=== PATIENT | male | born 1940 | race Caucasian/White ===

== ENCOUNTER → 2016-11-06 | Outpatient (CLI) | payer MEDICARE ==
[2015-11-19 09:41] VITALS: BP 156/78
[~2016-11-06] MED LIST: ABILIFY5 MG PO; AMBIEN 10MG10 MG PO; AMBIEN CR 12.12.5 MG PO; ASPIRIN E.C. 8181 MG PO; CRESTOR 10MG10 MG PO; DEPO-TESTOS200 MG/M1 IM; FLOMAX 0.40.4 MG/CAP PO; LIPITOR 40MG TA40 MG PO; OSTEO BI-FLEX1 TAB PO; TENORMIN25 MG PO; WELLBUTRIN SR200 MG PO
== END ==
LOC: LAB 09:57
DX: Z13.89 Encounter for screening for other disorder (principal)

== ENCOUNTER → 2016-11-24 | Outpatient (CLI) | payer MEDICARE ==
[2015-11-19 09:41] VITALS: BP 156/78
== END ==
LOC: LAB 09:19
DX: I10 Essential (primary) hypertension (principal); I25.10 Atherosclerotic heart disease of native coronary artery without angina pectoris; Z12.5 Encounter for screening for malignant neoplasm of prostate; E78.2 Mixed hyperlipidemia; E29.1 Testicular hypofunction

== ENCOUNTER 2017-04-25 02:47 | Emergency (ER) | payer MEDICARE ==
[~2017-04-25] VITALS: Ht 172.7 cm; Wt 77.3 kg
[2017-04-25] MEDS ORDERED: SEROQUEL 2525 MG/TAB PO (02:54)
[2017-04-25] MEDS ORDERED: CRESTOR20 MG PO (02:54)
[2017-04-25 03:38] LABS: EOS # 0.1 (0.04-0.40); EOS % 0.6 % (0.0-4.0); HEMATOCRIT 36.1 % (42.0-52.0); HEMOGLOBIN 11.1 g/dL (13.5-18.0); MEAN CELL VOLUME 75 fl (78-100); MEAN CORPUSCULAR HEMOGLOBIN 23 pg (27-31); MEAN CORPUSCULAR HGB CONC 31 g/dL (33-37); MEAN PLATELET VOLUME 9.9 fl (7.4-10.4); NEU # 7.9 (1.40-6.50); PLATELET COUNT 267 K/mm3 (130-400); RED BLOOD COUNT 4.79 M/mm3 (4.20-5.60); RED CELL DISTRIBUTION WIDTH 18.5 % (11.5-14.5); WHITE BLOOD COUNT 11.1 K/mm3 (4.8-10.8)
[2017-04-25 03:50] LABS: BUN/CREATININE RATIO 14.5 (6.0-26.0); CALCIUM 9.5 mg/dL (8.4-10.2); POTASSIUM 4.3 mmol/L (3.6-5.0); TOTAL BILIRUBIN 0.8 mg/dL (0.2-1.3); TOTAL PROTEIN 6.1 g/dL (6.3-8.2)
[2017-04-25 08:02] LABS: URINE APPEARANCE CLEAR; URINE COLOR STRAW; URINE GLUCOSE NEGATIVE (NEGATIVE); URINE PROTEIN(semi-quant) 3+ mg/dL (NEGATIVE)
[2017-04-25 08:03] LABS: URINE BILIRUBIN NEGATIVE (NEGATIVE); URINE BLOOD 50 ery/uL (NEGATIVE); URINE KETONE NEGATIVE (NEGATIVE); URINE LEUKOCYTE ESTERASE NEGATIVE (NEGATIVE); URINE NITRATE NEGATIVE (NEGATIVE); URINE UROBILINOGEN NORMAL (NORMAL); URINE WBC 0-1 /hpf (0-3)
[2017-04-25] MEDS ORDERED: ZOFRAN ODT4 MG PO (08:45)
[2017-04-25] MEDS ORDERED: MIRALAX17 GM PO (08:45)
[2017-04-25] MEDS ORDERED: OMEPRAZOLE20 MG PO (08:45)
[2017-04-25 09:10] VITALS: BP 177/91
== END 2017-04-25 09:28 | disposition home or self-care (01) ==
LOC: ED 02:47
PROVIDERS: Family Medicine
DX: R10.31 Right lower quadrant pain (principal); D64.9 Anemia, unspecified; I12.9 Hypertensive chronic kidney disease with stage 1 through stage 4 chronic kidney disease, or unspecified chronic kidney disease; N18.9 Chronic kidney disease, unspecified; K59.00 Constipation, unspecified; I25.10 Atherosclerotic heart disease of native coronary artery without angina pectoris; E78.5 Hyperlipidemia, unspecified; F31.9 Bipolar disorder, unspecified; R11.2 Nausea with vomiting, unspecified; R07.89 Other chest pain; E29.1 Testicular hypofunction
CPT/HCPCS: C9113; J2405; J3490; J7030

== ENCOUNTER 2017-04-28 13:44 | Emergency (ER) | payer MEDICARE ==
[~2017-04-28] VITALS: Ht 172.7 cm; Wt 76.8 kg
[~2017-04-28 13:44] MED LIST changes: +CRESTOR20 MG PO; +MIRALAX17 GM PO; +OMEPRAZOLE20 MG PO; +SEROQUEL 2525 MG/TAB PO; +ZOFRAN ODT4 MG PO
[2017-04-28 14:41] LABS: EOS # 0.5 (0.04-0.40); EOS % 4.5 % (0.0-4.0); HEMATOCRIT 27.4 % (42.0-52.0); HEMOGLOBIN 8.4 g/dL (13.5-18.0); LYMPH# 1.6 (1.50-4.00); MEAN CELL VOLUME 77 fl (78-100); MEAN CORPUSCULAR HEMOGLOBIN 24 pg (27-31); MEAN CORPUSCULAR HGB CONC 31 g/dL (33-37); MEAN PLATELET VOLUME 10.1 fl (7.4-10.4); MONO # 0.9 (0.20-0.80); PLATELET COUNT 281 K/mm3 (130-400); RED BLOOD COUNT 3.56 M/mm3 (4.20-5.60); RED CELL DISTRIBUTION WIDTH 18.7 % (11.5-14.5)
[2017-04-28 15:04] LABS: ALBUMIN 2.5 g/dL (3.5-5.0); BUN/CREATININE RATIO 18.7 (6.0-26.0); CALCIUM 8.8 mg/dL (8.4-10.2); TOTAL BILIRUBIN 0.5 mg/dL (0.2-1.3); TOTAL PROTEIN 5.2 g/dL (6.3-8.2)
[2017-04-28 15:14] LABS: POTASSIUM 6.1 mmol/L (3.6-5.0)
[2017-04-28 17:18] LABS: URINE APPEARANCE CLEAR; URINE COLOR YELLOW
[2017-04-28 17:19] LABS: PH-URINE 6.5 (5.0 - 8.0); URINE BILIRUBIN NEGATIVE (NEGATIVE); URINE BLOOD TRACE (NEGATIVE); URINE GLUCOSE NEGATIVE (NEGATIVE); URINE KETONE NEGATIVE (NEGATIVE); URINE LEUKOCYTE ESTERASE NEGATIVE (NEGATIVE); URINE NITRATE NEGATIVE (NEGATIVE); URINE PROTEIN(semi-quant) 3+ mg/dL (NEGATIVE); URINE UROBILINOGEN NORMAL (NORMAL)
[2017-04-28 18:08] VITALS: BP 130/55
== END 2017-04-28 18:08 | disposition short-term general hospital (02) ==
LOC: ED 13:44
PROVIDERS: Physician Assistant
DX: K92.2 Gastrointestinal hemorrhage, unspecified (principal); I95.9 Hypotension, unspecified; N19 Unspecified kidney failure; E87.5 Hyperkalemia; Z79.82 Long term (current) use of aspirin; I25.10 Atherosclerotic heart disease of native coronary artery without angina pectoris; I10 Essential (primary) hypertension; F31.9 Bipolar disorder, unspecified; K21.9 Gastro-esophageal reflux disease without esophagitis; E78.5 Hyperlipidemia, unspecified; G47.00 Insomnia, unspecified; N40.0 Benign prostatic hyperplasia without lower urinary tract symptoms; F17.200 Nicotine dependence, unspecified, uncomplicated
CPT/HCPCS: C9113; J0610; J1815; J7030; J7050; J7120

== ENCOUNTER → 2017-05-18 | Outpatient (CLI) | payer MEDICARE ==
[2017-04-28 18:08] VITALS: BP 130/55
[2017-05-18 16:41] LABS: ALBUMIN 2.7 g/dL (3.5-5.0); BUN/CREATININE RATIO 13.2 (6.0-26.0); POTASSIUM 5.1 mmol/L (3.6-5.0); TOTAL BILIRUBIN 0.4 mg/dL (0.2-1.3); TOTAL PROTEIN 5.9 g/dL (6.3-8.2)
[2017-05-18 17:17] LABS: EOS # 0.4 (0.04-0.40); EOS % 3.5 % (0.0-4.0); HEMOGLOBIN 9.8 g/dL (13.5-18.0); LYMPH# 2.5 (1.50-4.00); MEAN CELL VOLUME 91 fl (78-100); MEAN CORPUSCULAR HEMOGLOBIN 27 pg (27-31); MEAN CORPUSCULAR HGB CONC 30 g/dL (33-37); MEAN PLATELET VOLUME 10.2 fl (7.4-10.4); MONO # 1.3 (0.20-0.80); NEU # 6.8 (1.40-6.50); RED BLOOD COUNT 3.62 M/mm3 (4.20-5.60); RED CELL DISTRIBUTION WIDTH 19.5 % (11.5-14.5)
[2017-05-18 17:22] LABS: PLATELET COUNT 531 K/mm3 (130-400)
== END ==
LOC: LAB 15:58
PROVIDERS: Internal Medicine
DX: K26.0 Acute duodenal ulcer with hemorrhage (principal); I10 Essential (primary) hypertension; I25.10 Atherosclerotic heart disease of native coronary artery without angina pectoris

== ENCOUNTER → 2017-05-31 | Outpatient (CLI) | payer MEDICARE ==
[~2017-05-31] VITALS: Ht 172.7 cm; Wt 77.3 kg
[~2017-05-31] MED LIST changes: +COLACE100 M1 PO; +IRON90 MG
[2017-05-31 09:00] VITALS: BP 151/83
== END ==
LOC: AMSURD 08:01
DX: M10.9 Gout, unspecified (principal)
CPT/HCPCS: J1040; J7512

== ENCOUNTER → 2017-06-18 | Outpatient (CLI) | payer MEDICARE ==
[2017-05-31 09:00] VITALS: BP 151/83
[2017-06-18 10:42] LABS: ALBUMIN 2.9 g/dL (3.5-5.0); BUN/CREATININE RATIO 11.4 (6.0-26.0); CALCIUM 9.5 mg/dL (8.4-10.2); POTASSIUM 4.2 mmol/L (3.6-5.0); TOTAL BILIRUBIN 0.4 mg/dL (0.2-1.3); TOTAL PROTEIN 6.6 g/dL (6.3-8.2)
[2017-06-18 12:16] LABS: EOS # 0.1 (0.04-0.40); EOS % 0.9 % (0.0-4.0); HEMATOCRIT 42.9 % (42.0-52.0); HEMOGLOBIN 12.8 g/dL (13.5-18.0); LYMPH# 1.4 (1.50-4.00); MEAN CELL VOLUME 88 fl (78-100); MEAN CORPUSCULAR HEMOGLOBIN 26 pg (27-31); MEAN CORPUSCULAR HGB CONC 30 g/dL (33-37); MEAN PLATELET VOLUME 10.7 fl (7.4-10.4); NEU # 7.5 (1.40-6.50); PLATELET COUNT 374 K/mm3 (130-400); RED BLOOD COUNT 4.87 M/mm3 (4.20-5.60); WHITE BLOOD COUNT 10.1 K/mm3 (4.8-10.8)
== END ==
LOC: LAB 09:15
PROVIDERS: Internal Medicine
DX: K92.2 Gastrointestinal hemorrhage, unspecified (principal); I10 Essential (primary) hypertension; I25.10 Atherosclerotic heart disease of native coronary artery without angina pectoris

== ENCOUNTER → 2017-07-19 | Outpatient (CLI) | payer MEDICARE ==
[2017-05-31 09:00] VITALS: BP 151/83
[2017-07-19 10:34] LABS: EOS # 0.5 (0.04-0.40); EOS % 4.8 % (0.0-4.0); HEMATOCRIT 42.5 % (42.0-52.0); MEAN CELL VOLUME 86 fl (78-100); MEAN CORPUSCULAR HEMOGLOBIN 26 pg (27-31); MEAN CORPUSCULAR HGB CONC 31 g/dL (33-37); MONO # 1.2 (0.20-0.80); NEU # 6.4 (1.40-6.50); PLATELET COUNT 493 K/mm3 (130-400); RED BLOOD COUNT 4.97 M/mm3 (4.20-5.60); RED CELL DISTRIBUTION WIDTH 20.4 % (11.5-14.5); WHITE BLOOD COUNT 10.2 K/mm3 (4.8-10.8)
== END ==
LOC: LAB 09:54
PROVIDERS: Internal Medicine
DX: K26.0 Acute duodenal ulcer with hemorrhage (principal); I10 Essential (primary) hypertension; I25.10 Atherosclerotic heart disease of native coronary artery without angina pectoris

== ENCOUNTER → 2017-08-02 | Outpatient (CLI) | payer MEDICARE ==
[2017-05-31 09:00] VITALS: BP 151/83
== END ==
LOC: RAD 09:59
DX: R60.0 Localized edema (principal); M79.89 Other specified soft tissue disorders

== ENCOUNTER → 2017-08-24 | Outpatient (CLI) | payer MEDICARE ==
[2017-05-31 09:00] VITALS: BP 151/83
[2017-08-24 08:27] LABS: BUN/CREATININE RATIO 11.9 (6.0-26.0); CALCIUM 8.3 mg/dL (8.4-10.2); POTASSIUM 4.5 mmol/L (3.6-5.0)
== END ==
LOC: LAB 08:04
PROVIDERS: Internal Medicine
DX: I10 Essential (primary) hypertension (principal); R60.9 Edema, unspecified; M16.0 Bilateral primary osteoarthritis of hip; N40.0 Benign prostatic hyperplasia without lower urinary tract symptoms; K57.90 Diverticulosis of intestine, part unspecified, without perforation or abscess without bleeding; K44.9 Diaphragmatic hernia without obstruction or gangrene; N28.9 Disorder of kidney and ureter, unspecified

== ENCOUNTER → 2017-08-26 | Outpatient (CLI) | payer MEDICARE ==
[2017-05-31 09:00] VITALS: BP 151/83
== END ==
LOC: VAS 15:47 → RAD 16:00
DX: I08.3 Combined rheumatic disorders of mitral, aortic and tricuspid valves (principal)

== ENCOUNTER → 2017-08-31 | Outpatient (CLI) | payer MEDICARE ==
[2017-05-31 09:00] VITALS: BP 151/83
[2017-08-31 08:34] LABS: BUN/CREATININE RATIO 13.4 (6.0-26.0); CALCIUM 8.7 mg/dL (8.4-10.2); POTASSIUM 4.8 mmol/L (3.6-5.0)
== END ==
LOC: LAB 08:09
PROVIDERS: Internal Medicine
DX: I10 Essential (primary) hypertension (principal)

== ENCOUNTER → 2017-09-07 | Outpatient (CLI) | payer MEDICARE ==
[2017-05-31 09:00] VITALS: BP 151/83
[2017-09-07 19:40] LABS: PH-URINE 6.5 (5.0 - 8.0); URINE APPEARANCE CLEAR; URINE BILIRUBIN NEGATIVE (NEGATIVE); URINE COLOR YELLOW; URINE GLUCOSE NEGATIVE (NEGATIVE); URINE KETONE NEGATIVE (NEGATIVE); URINE PROTEIN(semi-quant) 3+ mg/dL (NEGATIVE); URINE UROBILINOGEN NORMAL (NORMAL)
[2017-09-07 19:41] LABS: URINE BLOOD TRACE (NEGATIVE); URINE LEUKOCYTE ESTERASE NEGATIVE (NEGATIVE); URINE NITRATE NEGATIVE (NEGATIVE)
== END ==
LOC: LAB 16:03
PROVIDERS: Internal Medicine
DX: N17.9 Acute kidney failure, unspecified (principal)

== ENCOUNTER → 2017-09-07 | Outpatient (CLI) | payer MEDICARE ==
[2017-05-31 09:00] VITALS: BP 151/83
[2017-09-07 08:51] LABS: BUN/CREATININE RATIO 11.6 (6.0-26.0); CALCIUM 8.4 mg/dL (8.4-10.2); POTASSIUM 4.6 mmol/L (3.6-5.0)
== END ==
LOC: LAB 08:28
PROVIDERS: Internal Medicine
DX: I10 Essential (primary) hypertension (principal)

== ENCOUNTER → 2017-09-08 | Outpatient (CLI) | payer MEDICARE ==
[2017-05-31 09:00] VITALS: BP 151/83
== END ==
LOC: RAD 07:00
DX: N17.9 Acute kidney failure, unspecified (principal); I10 Essential (primary) hypertension

== ENCOUNTER → 2017-09-17 | Outpatient (CLI) | payer MEDICARE ==
[2017-05-31 09:00] VITALS: BP 151/83
[2017-09-17 15:24] LABS: BUN/CREATININE RATIO 10.7 (6.0-26.0); CALCIUM 8.6 mg/dL (8.4-10.2); POTASSIUM 4.8 mmol/L (3.6-5.0)
[2017-09-18 00:50] LABS: COMPLEMENT C3 120 mg/dL (79-152); COMPLEMENT-C4 30 mg/dL (18-55)
[2017-09-20 11:54] LABS: ALBUMIN 2.3 g/dL (3.5-5.0)
[2017-09-21 23:16] LABS: C-ANCA 8 U/mL (0-99)
== END ==
LOC: LAB 13:59
PROVIDERS: Internal Medicine
DX: N17.8 Other acute kidney failure (principal); I12.9 Hypertensive chronic kidney disease with stage 1 through stage 4 chronic kidney disease, or unspecified chronic kidney disease; N18.3 Chronic kidney disease, stage 3 (moderate); R60.0 Localized edema

== ENCOUNTER → 2017-10-19 | Outpatient (CLI) | payer MEDICARE ==
[2017-05-31 09:00] VITALS: BP 151/83
== END ==
LOC: RAD 14:24
DX: M17.11 Unilateral primary osteoarthritis, right knee (principal); M11.261 Other chondrocalcinosis, right knee

== ENCOUNTER → 2017-10-22 | Outpatient (CLI) | payer MEDICARE ==
[2017-05-31 09:00] VITALS: BP 151/83
== END ==
LOC: LAB 07:47
DX: M10.342 Gout due to renal impairment, left hand (principal)

== ENCOUNTER → 2017-10-27 | Outpatient (CLI) | payer MEDICARE ==
[2017-05-31 09:00] VITALS: BP 151/83
[2017-10-27 10:18] LABS: ALBUMIN 2.5 g/dL (3.5-5.0); CALCIUM 7.2 mg/dL (8.4-10.2); POTASSIUM 4.2 mmol/L (3.6-5.0)
== END ==
LOC: LAB 09:54
PROVIDERS: Internal Medicine
DX: I12.9 Hypertensive chronic kidney disease with stage 1 through stage 4 chronic kidney disease, or unspecified chronic kidney disease (principal); N18.3 Chronic kidney disease, stage 3 (moderate); R80.8 Other proteinuria

== ENCOUNTER → 2017-11-15 | Outpatient (CLI) | payer MEDICARE ==
[2017-05-31 09:00] VITALS: BP 151/83
[2017-11-15 16:03] LABS: BUN/CREATININE RATIO 9.2 (6.0-26.0); CALCIUM 7.2 mg/dL (8.4-10.2); POTASSIUM 4.7 mmol/L (3.6-5.0)
== END ==
LOC: LAB 14:16
PROVIDERS: Nurse Practitioner Family
DX: M79.89 Other specified soft tissue disorders (principal); N18.9 Chronic kidney disease, unspecified

== ENCOUNTER → 2017-12-01 | Outpatient (CLI) | payer MEDICARE ==
[2017-05-31 09:00] VITALS: BP 151/83
[2017-12-01 15:17] LABS: ALBUMIN 2.3 g/dL (3.5-5.0); BUN/CREATININE RATIO 9.4 (6.0-26.0); CALCIUM 6.6 mg/dL (8.4-10.2); POTASSIUM 4.5 mmol/L (3.6-5.0); TOTAL BILIRUBIN 0.2 mg/dL (0.2-1.3); TOTAL PROTEIN 5.4 g/dL (6.3-8.2)
== END ==
LOC: LAB 14:37
PROVIDERS: Internal Medicine
DX: N18.3 Chronic kidney disease, stage 3 (moderate) (principal); R80.8 Other proteinuria

== ENCOUNTER → 2017-12-07 | Outpatient (CLI) | payer MEDICARE ==
[2017-05-31 09:00] VITALS: BP 151/83
[2017-12-07 08:19] LABS: HEMATOCRIT 32.9 % (42.0-52.0); HEMOGLOBIN 10.6 g/dL (13.5-18.0); MEAN CELL VOLUME 91 fl (78-100); MEAN CORPUSCULAR HEMOGLOBIN 29 pg (27-31); MEAN CORPUSCULAR HGB CONC 32 g/dL (33-37); MEAN PLATELET VOLUME 10.9 fl (7.4-10.4); PLATELET COUNT 353 K/mm3 (130-400); RED BLOOD COUNT 3.62 M/mm3 (4.20-5.60); WHITE BLOOD COUNT 8.5 K/mm3 (4.8-10.8)
[2017-12-07 08:35] LABS: ALBUMIN 2.3 g/dL (3.5-5.0); CALCIUM 7.5 mg/dL (8.4-10.2); POTASSIUM 3.9 mmol/L (3.6-5.0); TOTAL BILIRUBIN 0.3 mg/dL (0.2-1.3); TOTAL PROTEIN 5.3 g/dL (6.3-8.2)
[2017-12-07 09:55] LABS: LYMPHOCYTE 26 % (20-51); MICROCYTOSIS 1+; MONOCYTE 10 % (3-10); NEUTROPHILS 56 % (42-75); ROULEAUX 1+
== END ==
LOC: LAB 07:33
PROVIDERS: Internal Medicine
DX: C90.00 Multiple myeloma not having achieved remission (principal); N18.3 Chronic kidney disease, stage 3 (moderate)

== ENCOUNTER → 2017-12-14 | Outpatient (CLI) | payer MEDICARE ==
[2017-05-31 09:00] VITALS: BP 151/83
[2017-12-14 09:14] LABS: ALBUMIN 2.5 g/dL (3.5-5.0); BUN/CREATININE RATIO 9.7 (6.0-26.0); POTASSIUM 4.1 mmol/L (3.6-5.0); TOTAL BILIRUBIN 0.3 mg/dL (0.2-1.3); TOTAL PROTEIN 5.5 g/dL (6.3-8.2)
[2017-12-14 10:57] LABS: HEMATOCRIT 32.1 % (42.0-52.0); HEMOGLOBIN 10.1 g/dL (13.5-18.0); MEAN CELL VOLUME 92 fl (78-100); MEAN CORPUSCULAR HEMOGLOBIN 29 pg (27-31); MEAN CORPUSCULAR HGB CONC 32 g/dL (33-37); PLATELET COUNT 226 K/mm3 (130-400); RED CELL DISTRIBUTION WIDTH 16.1 % (11.5-14.5); WHITE BLOOD COUNT 8.3 K/mm3 (4.8-10.8)
[2017-12-14 11:02] LABS: MEAN PLATELET VOLUME 12.9 fl (7.4-10.4)
[2017-12-14 11:40] LABS: LYMPHOCYTE 27 % (20-51); MONOCYTE 15 % (3-10); NEUTROPHILS 55 % (42-75); NUCLEATED RED BLOOD CELL 1 (0-6); OVALOCYTES 1+; ROULEAUX 1+
[2017-12-14 22:25] LABS: IEPS IGA 112 mg/dL (101-645); IEPS IGG 791 mg/dL (540-1822); IEPS TP 4.6 g/dL (6.0-7.6)
[2017-12-15 09:51] LABS: ALBUMIN PERCENT 42.7 % (48.7-61.8); ALPHA 1 FRACTION 0.4 g/dL (0.3-0.5); ALPHA 1 PERCENT 9.4 % (3.4-8.3); ALPHA 2 PERCENT 21.9 % (8.4-17.5); BETA 1 FRACTION 0.3 g/dL (0.4-0.6); BETA 1 PERCENT 6.1 % (5.4-8.9); BETA 2 FRACTION 0.3 g/dL (0.2-0.5); BETA 2 PERCENT 5.8 % (3.8-7.7); IEPS GAMMA FRACTION 0.7 g/dL (0.4-1.7); IEPS GAMMA PERCENTAGE 14.1 % (8.1-23.0); IEPS IGM 39 mg/dL (22-240); IEPS MON1E 0.3 g/dL (())
== END ==
LOC: LAB 08:00
PROVIDERS: Internal Medicine Nephrology
DX: C90.00 Multiple myeloma not having achieved remission (principal); S37.009A Unspecified injury of unspecified kidney, initial encounter

== ENCOUNTER → 2017-12-23 | Outpatient (CLI) | payer MEDICARE ==
[2017-05-31 09:00] VITALS: BP 151/83
[2017-12-23 16:09] LABS: HEMATOCRIT 33.8 % (42.0-52.0); HEMOGLOBIN 10.4 g/dL (13.5-18.0); MEAN CELL VOLUME 96 fl (78-100); MEAN CORPUSCULAR HEMOGLOBIN 30 pg (27-31); MEAN CORPUSCULAR HGB CONC 31 g/dL (33-37); MEAN PLATELET VOLUME 10.4 fl (7.4-10.4); PLATELET COUNT 394 K/mm3 (130-400); RED BLOOD COUNT 3.51 M/mm3 (4.20-5.60); RED CELL DISTRIBUTION WIDTH 17.1 % (11.5-14.5); WHITE BLOOD COUNT 9.7 K/mm3 (4.8-10.8)
[2017-12-23 16:48] LABS: ALBUMIN 2.5 g/dL (3.5-5.0); BUN/CREATININE RATIO 4.8 (6.0-26.0); CALCIUM 7.6 mg/dL (8.4-10.2); POTASSIUM 4.7 mmol/L (3.6-5.0); TOTAL BILIRUBIN 0.3 mg/dL (0.2-1.3); TOTAL PROTEIN 5.2 g/dL (6.3-8.2); TROPONIN-I 0.06 ng/mL (0.00-0.06)
[2017-12-23 22:48] LABS: LYMPHOCYTE 22 % (20-51); MONOCYTE 11 % (3-10); NEUTROPHILS 67 % (42-75)
[2017-12-23 22:49] LABS: ACANTHROCYTES 1+; POLYCHROMASIA 1+
== END ==
LOC: LAB 12:45
PROVIDERS: Internal Medicine Nephrology
DX: C90.00 Multiple myeloma not having achieved remission (principal)

== ENCOUNTER → 2018-01-04 | Outpatient (CLI) | payer MEDICARE ==
[2017-05-31 09:00] VITALS: BP 151/83
[2018-01-04 13:36] LABS: HEMATOCRIT 27.8 % (42.0-52.0); HEMOGLOBIN 8.6 g/dL (13.5-18.0); MEAN CELL VOLUME 97 fl (78-100); MEAN CORPUSCULAR HEMOGLOBIN 30 pg (27-31); MEAN CORPUSCULAR HGB CONC 31 g/dL (33-37); MEAN PLATELET VOLUME 11.6 fl (7.4-10.4); PLATELET COUNT 238 K/mm3 (130-400); RED BLOOD COUNT 2.87 M/mm3 (4.20-5.60); RED CELL DISTRIBUTION WIDTH 17.1 % (11.5-14.5); WHITE BLOOD COUNT 10.5 K/mm3 (4.8-10.8)
[2018-01-04 13:42] LABS: ALBUMIN 2.5 g/dL (3.5-5.0); BUN/CREATININE RATIO 9.7 (6.0-26.0); POTASSIUM 4.3 mmol/L (3.6-5.0); TOTAL BILIRUBIN 0.2 mg/dL (0.2-1.3); TOTAL PROTEIN 5.1 g/dL (6.3-8.2)
[2018-01-04 13:59] LABS: LYMPHOCYTE 16 % (20-51); MONOCYTE 10 % (3-10); NEUTROPHILS 72 % (42-75); ROULEAUX 1+
== END ==
LOC: LAB 13:04
PROVIDERS: Internal Medicine Nephrology
DX: C90.00 Multiple myeloma not having achieved remission (principal); Z99.2 Dependence on renal dialysis

== ENCOUNTER → 2018-01-11 | Outpatient (CLI) | payer MEDICARE ==
[2017-05-31 09:00] VITALS: BP 151/83
[2018-01-11 10:21] LABS: HEMATOCRIT 27.9 % (42.0-52.0); HEMOGLOBIN 8.8 g/dL (13.5-18.0); MEAN CELL VOLUME 97 fl (78-100); MEAN CORPUSCULAR HEMOGLOBIN 31 pg (27-31); MEAN CORPUSCULAR HGB CONC 32 g/dL (33-37); MEAN PLATELET VOLUME 11.4 fl (7.4-10.4); PLATELET COUNT 250 K/mm3 (130-400); RED BLOOD COUNT 2.88 M/mm3 (4.20-5.60); RED CELL DISTRIBUTION WIDTH 17.8 % (11.5-14.5)
[2018-01-11 10:33] LABS: ACANTHROCYTES 1+; LYMPHOCYTE 12 % (20-51); MONOCYTE 4 % (3-10); NEUTROPHILS 84 % (42-75); NUCLEATED RED BLOOD CELL 3 (0-6); POLYCHROMASIA 1+
[2018-01-11 10:35] LABS: ALBUMIN 2.8 g/dL (3.5-5.0); BUN/CREATININE RATIO 8.8 (6.0-26.0); CALCIUM 7.3 mg/dL (8.4-10.2); POTASSIUM 4.3 mmol/L (3.6-5.0); TOTAL BILIRUBIN 0.3 mg/dL (0.2-1.3); TOTAL PROTEIN 5.4 g/dL (6.3-8.2)
== END ==
LOC: LAB 10:01
PROVIDERS: Internal Medicine
DX: C90.00 Multiple myeloma not having achieved remission (principal); Z99.2 Dependence on renal dialysis

== ENCOUNTER → 2018-01-18 | Outpatient (CLI) | payer MEDICARE ==
[2017-05-31 09:00] VITALS: BP 151/83
[2018-01-18 09:30] LABS: EOS # 0.2 (0.04-0.40); HEMATOCRIT 28.1 % (42.0-52.0); HEMOGLOBIN 8.6 g/dL (13.5-18.0); LYMPH# 1.8 (1.50-4.00); MEAN CELL VOLUME 99 fl (78-100); MEAN CORPUSCULAR HEMOGLOBIN 30 pg (27-31); MEAN CORPUSCULAR HGB CONC 31 g/dL (33-37); MEAN PLATELET VOLUME 11.3 fl (7.4-10.4); MONO # 1.2 (0.20-0.80); NEU # 7.5 (1.40-6.50); PLATELET COUNT 264 K/mm3 (130-400); RED BLOOD COUNT 2.84 M/mm3 (4.20-5.60); RED CELL DISTRIBUTION WIDTH 18.4 % (11.5-14.5); WHITE BLOOD COUNT 10.7 K/mm3 (4.8-10.8)
[2018-01-18 09:37] LABS: ALBUMIN 2.7 g/dL (3.5-5.0); BUN/CREATININE RATIO 8.3 (6.0-26.0); CALCIUM 7.4 mg/dL (8.4-10.2); POTASSIUM 4.6 mmol/L (3.6-5.0); TOTAL BILIRUBIN 0.3 mg/dL (0.2-1.3); TOTAL PROTEIN 5.3 g/dL (6.3-8.2)
== END ==
LOC: LAB 09:08 → RAD 09:08
PROVIDERS: Internal Medicine
DX: M47.894 Other spondylosis, thoracic region (principal); Z87.81 Personal history of (healed) traumatic fracture; C90.00 Multiple myeloma not having achieved remission

== ENCOUNTER → 2018-01-25 | Outpatient (CLI) | payer MEDICARE ==
[2017-05-31 09:00] VITALS: BP 151/83
[2018-01-25 08:21] LABS: EOS # 0.1 (0.04-0.40); EOS % 1.3 % (0.0-4.0); HEMOGLOBIN 8.5 g/dL (13.5-18.0); MEAN CELL VOLUME 99 fl (78-100); MEAN CORPUSCULAR HEMOGLOBIN 31 pg (27-31); MEAN CORPUSCULAR HGB CONC 32 g/dL (33-37); MEAN PLATELET VOLUME 11.2 fl (7.4-10.4); MONO # 1.2 (0.20-0.80); NEU # 7.3 (1.40-6.50); PLATELET COUNT 290 K/mm3 (130-400); RED BLOOD COUNT 2.73 M/mm3 (4.20-5.60); RED CELL DISTRIBUTION WIDTH 18.7 % (11.5-14.5); WHITE BLOOD COUNT 10.7 K/mm3 (4.8-10.8)
[2018-01-25 08:47] LABS: CALCIUM 7.4 mg/dL (8.4-10.2); POTASSIUM 4.4 mmol/L (3.6-5.0); TOTAL BILIRUBIN 0.3 mg/dL (0.2-1.3); TOTAL PROTEIN 5.7 g/dL (6.3-8.2)
== END ==
LOC: LAB 08:10
PROVIDERS: Internal Medicine
DX: C90.00 Multiple myeloma not having achieved remission (principal)

== ENCOUNTER → 2018-02-02 | Outpatient (CLI) | payer MEDICARE ==
[2017-05-31 09:00] VITALS: BP 151/83
[~2018-02-02] MED LIST changes: +ACYCLOVIR200 M1 PO; +CALCITRIOL0.25 MCG PO; +DECADRON 4MG TAB4 MG; +TORSEMIDE20 M1 PO; +ZYLOPRIM 100MG100 MG PO
[2018-02-02 08:44] LABS: HEMATOCRIT 31.1 % (42.0-52.0); HEMOGLOBIN 9.8 g/dL (13.5-18.0); MEAN CELL VOLUME 104 fl (78-100); MEAN CORPUSCULAR HEMOGLOBIN 33 pg (27-31); MEAN CORPUSCULAR HGB CONC 32 g/dL (33-37); MEAN PLATELET VOLUME 10.6 fl (7.4-10.4); PLATELET COUNT 322 K/mm3 (130-400); RED BLOOD COUNT 2.99 M/mm3 (4.20-5.60); RED CELL DISTRIBUTION WIDTH 20.9 % (11.5-14.5)
[2018-02-02 08:59] LABS: BAND 1 % (0-10); LYMPHOCYTE 14 % (20-51); NEUTROPHILS 73 % (42-75)
[2018-02-02 09:00] LABS: MONOCYTE 9 % (3-10); NUCLEATED RED BLOOD CELL 20 (0-6)
[2018-02-02 09:02] LABS: POLYCHROMASIA 1+; WHITE BLOOD COUNT 10.5 K/mm3 (4.8-10.8)
[2018-02-02 09:13] LABS: ALBUMIN 2.9 g/dL (3.5-5.0); CALCIUM 7.5 mg/dL (8.4-10.2); POTASSIUM 3.6 mmol/L (3.6-5.0); TOTAL BILIRUBIN 0.4 mg/dL (0.2-1.3); TOTAL PROTEIN 5.5 g/dL (6.3-8.2)
== END ==
LOC: LAB 08:33
PROVIDERS: Internal Medicine
DX: C90.00 Multiple myeloma not having achieved remission (principal)

== ENCOUNTER 2018-02-04 17:27 | Emergency (ER) | payer MEDICARE ==
[~2018-02-04] VITALS: Ht 172.7 cm; Wt 77.3 kg
[~2018-02-04 17:27] MED LIST changes: -ACYCLOVIR200 M1 PO; -CALCITRIOL0.25 MCG PO; -DECADRON 4MG TAB4 MG; -TORSEMIDE20 M1 PO; -ZYLOPRIM 100MG100 MG PO
[2018-02-04] MEDS ORDERED: ZYLOPRIM 100MG100 MG PO (17:38)
[2018-02-04] MEDS ORDERED: CALCITRIOL0.25 MCG PO (17:38)
[2018-02-04] MEDS ORDERED: TORSEMIDE20 M1 PO (17:39)
[2018-02-04] MEDS ORDERED: DECADRON 4MG TAB4 MG (17:39)
[2018-02-04] MEDS ORDERED: ACYCLOVIR200 M1 PO (17:39)
[2018-02-04 18:35] LABS: HEMOGLOBIN 9.6 g/dL (13.5-18.0); MEAN CELL VOLUME 105 fl (78-100); MEAN CORPUSCULAR HEMOGLOBIN 33 pg (27-31); MEAN CORPUSCULAR HGB CONC 31 g/dL (33-37); MEAN PLATELET VOLUME 10.3 fl (7.4-10.4); PLATELET COUNT 258 K/mm3 (130-400); RED BLOOD COUNT 2.94 M/mm3 (4.20-5.60); WHITE BLOOD COUNT 14.1 K/mm3 (4.8-10.8)
[2018-02-04 18:43] LABS: CALCIUM 7.5 mg/dL (8.4-10.2)
[2018-02-04 19:02] LABS: LYMPHOCYTE 10 % (20-51); MONOCYTE 10 % (3-10); NEUTROPHILS 80 % (42-75)
[2018-02-04 20:20] VITALS: BP 138/80
== END 2018-02-04 20:20 | disposition home or self-care (01) ==
LOC: ED 17:27
PROVIDERS: Family Medicine
DX: I12.0 Hypertensive chronic kidney disease with stage 5 chronic kidney disease or end stage renal disease (principal); N18.6 End stage renal disease; Z99.2 Dependence on renal dialysis; C90.00 Multiple myeloma not having achieved remission; I25.10 Atherosclerotic heart disease of native coronary artery without angina pectoris; J44.9 Chronic obstructive pulmonary disease, unspecified; K44.9 Diaphragmatic hernia without obstruction or gangrene; Z79.899 Other long term (current) drug therapy; E78.5 Hyperlipidemia, unspecified; Z49.01 Encounter for fitting and adjustment of extracorporeal dialysis catheter

== ENCOUNTER → 2018-02-08 | Outpatient (CLI) | payer MEDICARE ==
[2018-02-04 20:20] VITALS: BP 138/80
[~2018-02-08] MED LIST changes: +ACYCLOVIR200 M1 PO; +CALCITRIOL0.25 MCG PO; +DECADRON 4MG TAB4 MG; +TORSEMIDE20 M1 PO; +ZYLOPRIM 100MG100 MG PO
[2018-02-08 08:15] LABS: EOS # 0.2 (0.04-0.40); EOS % 1.3 % (0.0-4.0); HEMATOCRIT 32.2 % (42.0-52.0); HEMOGLOBIN 10.1 g/dL (13.5-18.0); LYMPH# 2.6 (1.50-4.00); MEAN CELL VOLUME 105 fl (78-100); MEAN CORPUSCULAR HEMOGLOBIN 33 pg (27-31); MEAN CORPUSCULAR HGB CONC 31 g/dL (33-37); MEAN PLATELET VOLUME 10.8 fl (7.4-10.4); MONO # 1.4 (0.20-0.80); NEU # 7.3 (1.40-6.50); PLATELET COUNT 267 K/mm3 (130-400); RED BLOOD COUNT 3.06 M/mm3 (4.20-5.60); RED CELL DISTRIBUTION WIDTH 20.4 % (11.5-14.5); WHITE BLOOD COUNT 11.6 K/mm3 (4.8-10.8)
[2018-02-08 08:21] LABS: ALBUMIN 2.9 g/dL (3.5-5.0); CALCIUM 7.7 mg/dL (8.4-10.2); POTASSIUM 4.4 mmol/L (3.6-5.0); TOTAL BILIRUBIN 0.3 mg/dL (0.2-1.3); TOTAL PROTEIN 5.5 g/dL (6.3-8.2)
== END ==
LOC: LAB 07:25
PROVIDERS: Internal Medicine
DX: C90.00 Multiple myeloma not having achieved remission (principal)

== ENCOUNTER 2018-02-12 17:32 | Emergency (ER) | payer MEDICARE ==
[~2018-02-12] VITALS: Ht 175.3 cm; Wt 75.7 kg
[2018-02-12 18:36] LABS: HEMATOCRIT 36.7 % (42.0-52.0); HEMOGLOBIN 11.5 g/dL (13.5-18.0); MEAN CELL VOLUME 104 fl (78-100); MEAN CORPUSCULAR HEMOGLOBIN 33 pg (27-31); MEAN CORPUSCULAR HGB CONC 31 g/dL (33-37); MEAN PLATELET VOLUME 9.7 fl (7.4-10.4); PLATELET COUNT 235 K/mm3 (130-400); RED BLOOD COUNT 3.52 M/mm3 (4.20-5.60); RED CELL DISTRIBUTION WIDTH 19.3 % (11.5-14.5)
[2018-02-12 18:49] LABS: ALBUMIN 3.2 g/dL (3.5-5.0); CALCIUM 8.5 mg/dL (8.4-10.2); POTASSIUM 4.4 mmol/L (3.6-5.0); TOTAL BILIRUBIN 0.7 mg/dL (0.2-1.3); TOTAL PROTEIN 5.8 g/dL (6.3-8.2)
[2018-02-12 18:58] LABS: LYMPHOCYTE 6 % (20-51); MONOCYTE 10 % (3-10); NEUTROPHILS 83 % (42-75)
[2018-02-12 19:32] LABS: URINE APPEARANCE CLEAR; URINE BILIRUBIN NEGATIVE (NEGATIVE); URINE BLOOD NEGATIVE (NEGATIVE); URINE COLOR YELLOW; URINE GLUCOSE NEGATIVE (NEGATIVE); URINE KETONE NEGATIVE (NEGATIVE); URINE LEUKOCYTE ESTERASE NEGATIVE (NEGATIVE); URINE NITRATE NEGATIVE (NEGATIVE); URINE PROTEIN(semi-quant) 3+ mg/dL (NEGATIVE); URINE UROBILINOGEN NORMAL (NORMAL)
[2018-02-12] MEDS ORDERED: METRONIDAZOLE500 M1 PO (21:02)
[2018-02-12 21:10] VITALS: BP 102/55
== END 2018-02-12 21:10 | disposition home or self-care (01) ==
LOC: ED 17:32
PROVIDERS: Family Medicine
DX: K57.92 Diverticulitis of intestine, part unspecified, without perforation or abscess without bleeding (principal); N19 Unspecified kidney failure; Z99.2 Dependence on renal dialysis; C90.00 Multiple myeloma not having achieved remission; Z79.899 Other long term (current) drug therapy
CPT/HCPCS: J1885

== ENCOUNTER 2018-02-17 05:41 | Emergency (ER) | payer MEDICARE ==
[~2018-02-17] VITALS: Ht 172.7 cm; Wt 77.3 kg
[~2018-02-17 05:41] MED LIST changes: +METRONIDAZOLE500 M1 PO
[2018-02-17 06:18] LABS: HEMATOCRIT 26.7 % (42.0-52.0); HEMOGLOBIN 8.5 g/dL (13.5-18.0); MEAN CELL VOLUME 105 fl (78-100); MEAN CORPUSCULAR HEMOGLOBIN 33 pg (27-31); MEAN CORPUSCULAR HGB CONC 32 g/dL (33-37); MEAN PLATELET VOLUME 10.9 fl (7.4-10.4); PLATELET COUNT 261 K/mm3 (130-400); RED BLOOD COUNT 2.55 M/mm3 (4.20-5.60); RED CELL DISTRIBUTION WIDTH 17.7 % (11.5-14.5); WHITE BLOOD COUNT 14.4 K/mm3 (4.8-10.8)
[2018-02-17 06:24] LABS: LYMPHOCYTE 11 % (20-51); MONOCYTE 7 % (3-10); NEUTROPHILS 82 % (42-75)
[2018-02-17 06:25] LABS: ACANTHROCYTES 1+; OVALOCYTES 1+
[2018-02-17 06:29] LABS: ALBUMIN 2.7 g/dL (3.5-5.0); CALCIUM 7.4 mg/dL (8.4-10.2); TOTAL BILIRUBIN 0.7 mg/dL (0.2-1.3); TOTAL PROTEIN 5.2 g/dL (6.3-8.2)
[2018-02-17 06:53] LABS: PARTIAL THROMBOPLASTIN TIME 27.5 SECONDS (21.0-32.0)
[2018-02-17 07:30] VITALS: BP 103/63
== END 2018-02-17 07:30 | disposition short-term general hospital (02) ==
LOC: ED 05:41
PROVIDERS: Nurse Practitioner
DX: K92.2 Gastrointestinal hemorrhage, unspecified (principal); N19 Unspecified kidney failure; R10.32 Left lower quadrant pain; R11.2 Nausea with vomiting, unspecified; Z99.2 Dependence on renal dialysis; Z79.899 Other long term (current) drug therapy
CPT/HCPCS: J2405; J3010; J7030

== ENCOUNTER → 2018-02-28 | Outpatient (CLI) | payer MEDICARE ==
[2018-02-17 07:30] VITALS: BP 103/63
[2018-02-28 11:44] LABS: HEMATOCRIT 27.5 % (42.0-52.0); HEMOGLOBIN 8.7 g/dL (13.5-18.0); MEAN CELL VOLUME 97 fl (78-100); MEAN CORPUSCULAR HEMOGLOBIN 31 pg (27-31); MEAN CORPUSCULAR HGB CONC 32 g/dL (33-37); MEAN PLATELET VOLUME 9.7 fl (7.4-10.4); RED BLOOD COUNT 2.84 M/mm3 (4.20-5.60); RED CELL DISTRIBUTION WIDTH 16.5 % (11.5-14.5); WHITE BLOOD COUNT 15.9 K/mm3 (4.8-10.8)
[2018-02-28 11:58] LABS: ALBUMIN 2.6 g/dL (3.5-5.0); CALCIUM 8.4 mg/dL (8.4-10.2); POTASSIUM 3.9 mmol/L (3.6-5.0); TOTAL BILIRUBIN 0.4 mg/dL (0.2-1.3); TOTAL PROTEIN 5.2 g/dL (6.3-8.2)
[2018-02-28 12:25] LABS: PLATELET COUNT 694 K/mm3 (130-400)
[2018-02-28 12:26] LABS: LYMPHOCYTE 13 % (20-51); MONOCYTE 10 % (3-10); NEUTROPHILS 77 % (42-75)
[2018-03-01 00:16] LABS: IEPS IGA 111 mg/dL (101-645); IEPS IGG 482 mg/dL (540-1822); IEPS TP 4.6 g/dL (6.0-7.6)
[2018-03-02 13:50] LABS: ALBUMIN FRACTION 2.2 g/dL (2.6-4.5); ALBUMIN PERCENT 48.2 % (48.7-61.8); ALPHA 1 FRACTION 0.5 g/dL (0.3-0.5); ALPHA 1 PERCENT 11.6 % (3.4-8.3); ALPHA 2 FRACTION 0.9 g/dL (0.6-1.2); ALPHA 2 PERCENT 19.4 % (8.4-17.5); BETA 1 FRACTION 0.3 g/dL (0.4-0.6); BETA 1 PERCENT 5.8 % (5.4-8.9); BETA 2 FRACTION 0.2 g/dL (0.2-0.5); BETA 2 PERCENT 5.3 % (3.8-7.7); IEPS GAMMA FRACTION 0.5 g/dL (0.4-1.7); IEPS GAMMA PERCENTAGE 9.7 % (8.1-23.0); IEPS IGM 17 mg/dL (22-240)
== END ==
LOC: LAB 11:09
DX: C90.00 Multiple myeloma not having achieved remission (principal); K92.2 Gastrointestinal hemorrhage, unspecified

== ENCOUNTER → 2018-03-08 | Outpatient (CLI) | payer MEDICARE ==
[2018-02-17 07:30] VITALS: BP 103/63
[2018-03-08 13:40] LABS: HEMATOCRIT 33.2 % (42.0-52.0); HEMOGLOBIN 10.1 g/dL (13.5-18.0); MEAN CELL VOLUME 100 fl (78-100); MEAN CORPUSCULAR HEMOGLOBIN 31 pg (27-31); MEAN CORPUSCULAR HGB CONC 30 g/dL (33-37); MEAN PLATELET VOLUME 10.3 fl (7.4-10.4); PLATELET COUNT 381 K/mm3 (130-400); RED BLOOD COUNT 3.31 M/mm3 (4.20-5.60); RED CELL DISTRIBUTION WIDTH 17.8 % (11.5-14.5); WHITE BLOOD COUNT 13.2 K/mm3 (4.8-10.8)
[2018-03-08 13:58] LABS: ALBUMIN 2.7 g/dL (3.5-5.0); CALCIUM 7.8 mg/dL (8.4-10.2); POTASSIUM 4.8 mmol/L (3.6-5.0); TOTAL BILIRUBIN 0.4 mg/dL (0.2-1.3); TOTAL PROTEIN 5.3 g/dL (6.3-8.2)
[2018-03-08 14:01] LABS: LYMPHOCYTE 11 % (20-51); MONOCYTE 2 % (3-10); NEUTROPHILS 84 % (42-75)
[2018-03-08 14:04] LABS: HYPOCHROMIA 2+
== END ==
LOC: LAB 13:24
PROVIDERS: Internal Medicine
DX: C90.00 Multiple myeloma not having achieved remission (principal)

== ENCOUNTER → 2018-03-15 | Outpatient (CLI) | payer MEDICARE ==
[2018-02-17 07:30] VITALS: BP 103/63
[2018-03-15 09:39] LABS: HEMATOCRIT 35.1 % (42.0-52.0); HEMOGLOBIN 10.7 g/dL (13.5-18.0); MEAN CELL VOLUME 100 fl (78-100); MEAN CORPUSCULAR HEMOGLOBIN 31 pg (27-31); MEAN CORPUSCULAR HGB CONC 31 g/dL (33-37); MEAN PLATELET VOLUME 11.3 fl (7.4-10.4); PLATELET COUNT 206 K/mm3 (130-400); RED BLOOD COUNT 3.51 M/mm3 (4.20-5.60); RED CELL DISTRIBUTION WIDTH 17.8 % (11.5-14.5)
[2018-03-15 09:57] LABS: ALBUMIN 2.9 g/dL (3.5-5.0); CALCIUM 8.2 mg/dL (8.4-10.2); POTASSIUM 4.3 mmol/L (3.6-5.0); TOTAL BILIRUBIN 0.3 mg/dL (0.2-1.3); TOTAL PROTEIN 5.3 g/dL (6.3-8.2)
[2018-03-15 10:36] LABS: LYMPHOCYTE 19 % (20-51); MICROCYTOSIS 1+; MONOCYTE 6 % (3-10); NEUTROPHILS 74 % (42-75); NUCLEATED RED BLOOD CELL 6 (0-6)
== END ==
LOC: LAB 08:43
PROVIDERS: Internal Medicine
DX: C90.00 Multiple myeloma not having achieved remission (principal)

== ENCOUNTER → 2018-03-22 | Outpatient (CLI) | payer MEDICARE ==
[2018-03-22 09:58] LABS: HEMATOCRIT 35.3 % (42.0-52.0); MEAN CELL VOLUME 101 fl (78-100); MEAN CORPUSCULAR HEMOGLOBIN 31 pg (27-31); MEAN CORPUSCULAR HGB CONC 31 g/dL (33-37); MEAN PLATELET VOLUME 11.2 fl (7.4-10.4); PLATELET COUNT 193 K/mm3 (130-400); RED BLOOD COUNT 3.51 M/mm3 (4.20-5.60); RED CELL DISTRIBUTION WIDTH 18.5 % (11.5-14.5); WHITE BLOOD COUNT 5.2 K/mm3 (4.8-10.8)
[2018-03-22 10:12] LABS: CALCIUM 8.4 mg/dL (8.4-10.2); POTASSIUM 4.6 mmol/L (3.6-5.0); TOTAL BILIRUBIN 0.6 mg/dL (0.2-1.3); TOTAL PROTEIN 5.7 g/dL (6.3-8.2)
[2018-03-22 10:49] LABS: LYMPHOCYTE 3 % (20-51); NEUTROPHILS 97 % (42-75); NUCLEATED RED BLOOD CELL 2 (0-6); OVALOCYTES 1+
== END ==
LOC: LAB 09:41
PROVIDERS: Internal Medicine
DX: C90.00 Multiple myeloma not having achieved remission (principal)

== ENCOUNTER → 2018-04-05 | Outpatient (CLI) | payer MEDICARE ==
[2018-04-05 09:51] LABS: HEMATOCRIT 31.9 % (42.0-52.0); MEAN CELL VOLUME 99 fl (78-100); MEAN CORPUSCULAR HEMOGLOBIN 31 pg (27-31); MEAN CORPUSCULAR HGB CONC 31 g/dL (33-37); MEAN PLATELET VOLUME 11.4 fl (7.4-10.4); PLATELET COUNT 180 K/mm3 (130-400); RED BLOOD COUNT 3.23 M/mm3 (4.20-5.60); RED CELL DISTRIBUTION WIDTH 18.3 % (11.5-14.5); WHITE BLOOD COUNT 10.2 K/mm3 (4.8-10.8)
[2018-04-05 10:25] LABS: CALCIUM 7.6 mg/dL (8.4-10.2); POTASSIUM 3.9 mmol/L (3.6-5.0); TOTAL BILIRUBIN 0.5 mg/dL (0.2-1.3); TOTAL PROTEIN 5.4 g/dL (6.3-8.2)
[2018-04-05 10:28] LABS: LYMPHOCYTE 9 % (20-51); NEUTROPHILS 80 % (42-75)
[2018-04-05 10:29] LABS: MONOCYTE 11 % (3-10); OVALOCYTES 1+
== END ==
LOC: LAB 09:38
PROVIDERS: Internal Medicine
DX: C90.00 Multiple myeloma not having achieved remission (principal)

== ENCOUNTER → 2018-04-12 | Outpatient (CLI) | payer MEDICARE ==
[2018-04-12 09:14] LABS: HEMATOCRIT 32.2 % (42.0-52.0); HEMOGLOBIN 10.2 g/dL (13.5-18.0); MEAN CELL VOLUME 100 fl (78-100); MEAN CORPUSCULAR HEMOGLOBIN 32 pg (27-31); MEAN CORPUSCULAR HGB CONC 32 g/dL (33-37); MEAN PLATELET VOLUME 11.3 fl (7.4-10.4); PLATELET COUNT 179 K/mm3 (130-400); RED BLOOD COUNT 3.23 M/mm3 (4.20-5.60); RED CELL DISTRIBUTION WIDTH 18.7 % (11.5-14.5); WHITE BLOOD COUNT 9.3 K/mm3 (4.8-10.8)
[2018-04-12 09:20] LABS: ALBUMIN 3.2 g/dL (3.5-5.0); CALCIUM 7.6 mg/dL (8.4-10.2); POTASSIUM 4.2 mmol/L (3.6-5.0); TOTAL BILIRUBIN 0.5 mg/dL (0.2-1.3); TOTAL PROTEIN 5.7 g/dL (6.3-8.2)
[2018-04-12 09:47] LABS: LYMPHOCYTE 13 % (20-51); MONOCYTE 12 % (3-10); NEUTROPHILS 75 % (42-75); OVALOCYTES 1+
[2018-04-12 23:51] LABS: IEPS IGA 79 mg/dL (101-645); IEPS IGG 473 mg/dL (540-1822)
[2018-04-13 15:56] LABS: IEPS IGM 22 mg/dL (22-240)
== END ==
LOC: LAB 08:44
PROVIDERS: Internal Medicine
DX: C90.00 Multiple myeloma not having achieved remission (principal)

== ENCOUNTER → 2018-04-13 | Outpatient (CLI) | payer MEDICARE | LOC: LAB 14:45 | DX: C90.00 Multiple myeloma not having achieved remission (principal) ==

== ENCOUNTER → 2018-05-03 | Outpatient (CLI) | payer MEDICARE ==
[2018-05-03 13:58] LABS: HEMATOCRIT 30.7 % (42.0-52.0); HEMOGLOBIN 9.7 g/dL (13.5-18.0); MEAN CELL VOLUME 100 fl (78-100); MEAN CORPUSCULAR HEMOGLOBIN 32 pg (27-31); MEAN CORPUSCULAR HGB CONC 32 g/dL (33-37); MEAN PLATELET VOLUME 10.4 fl (7.4-10.4); PLATELET COUNT 196 K/mm3 (130-400); RED BLOOD COUNT 3.07 M/mm3 (4.20-5.60); WHITE BLOOD COUNT 7.3 K/mm3 (4.8-10.8)
[2018-05-03 14:15] LABS: ALBUMIN 3.6 g/dL (3.5-5.0); CALCIUM 7.8 mg/dL (8.4-10.2); POTASSIUM 3.9 mmol/L (3.6-5.0); TOTAL BILIRUBIN 0.7 mg/dL (0.2-1.3); TOTAL PROTEIN 6.1 g/dL (6.3-8.2)
[2018-05-03 18:52] LABS: HYPOCHROMIA 1+; LYMPHOCYTE 12 % (20-51); MONOCYTE 9 % (3-10); NEUTROPHILS 77 % (42-75)
== END ==
LOC: LAB 13:39
PROVIDERS: Internal Medicine
DX: C90.00 Multiple myeloma not having achieved remission (principal)

== ENCOUNTER → 2018-05-17 | Outpatient (CLI) | payer MEDICARE ==
[2018-05-17 12:05] LABS: HEMATOCRIT 33.5 % (42.0-52.0); HEMOGLOBIN 10.6 g/dL (13.5-18.0); MEAN CELL VOLUME 102 fl (78-100); MEAN CORPUSCULAR HEMOGLOBIN 32 pg (27-31); MEAN CORPUSCULAR HGB CONC 32 g/dL (33-37); MEAN PLATELET VOLUME 11.9 fl (7.4-10.4); PLATELET COUNT 122 K/mm3 (130-400); RED BLOOD COUNT 3.27 M/mm3 (4.20-5.60); RED CELL DISTRIBUTION WIDTH 20.9 % (11.5-14.5)
[2018-05-17 12:09] LABS: ALBUMIN 3.4 g/dL (3.5-5.0); CALCIUM 7.9 mg/dL (8.4-10.2); TOTAL BILIRUBIN 0.7 mg/dL (0.2-1.3); TOTAL PROTEIN 5.7 g/dL (6.3-8.2)
[2018-05-17 15:36] LABS: LYMPHOCYTE 3 % (20-51); NEUTROPHILS 91 % (42-75)
[2018-05-17 15:37] LABS: HYPOCHROMIA 2+; MONOCYTE 6 % (3-10); NUCLEATED RED BLOOD CELL 39 (0-6)
== END ==
LOC: LAB 11:07
PROVIDERS: Internal Medicine
DX: C90.00 Multiple myeloma not having achieved remission (principal)

== ENCOUNTER → 2018-05-23 | Outpatient (CLI) | payer MEDICARE ==
[2018-05-23 13:15] LABS: HEMATOCRIT 33.9 % (42.0-52.0); HEMOGLOBIN 10.7 g/dL (13.5-18.0); MEAN CELL VOLUME 104 fl (78-100); MEAN CORPUSCULAR HEMOGLOBIN 33 pg (27-31); MEAN CORPUSCULAR HGB CONC 32 g/dL (33-37); MEAN PLATELET VOLUME 10.6 fl (7.4-10.4); PLATELET COUNT 183 K/mm3 (130-400); RED BLOOD COUNT 3.27 M/mm3 (4.20-5.60); RED CELL DISTRIBUTION WIDTH 19.8 % (11.5-14.5); WHITE BLOOD COUNT 5.8 K/mm3 (4.8-10.8)
[2018-05-23 13:25] LABS: ALBUMIN 3.3 g/dL (3.5-5.0); CALCIUM 6.4 mg/dL (8.4-10.2); POTASSIUM 4.3 mmol/L (3.6-5.0); TOTAL BILIRUBIN 0.5 mg/dL (0.2-1.3); TOTAL PROTEIN 5.6 g/dL (6.3-8.2)
[2018-05-23 13:43] LABS: LYMPHOCYTE 11 % (20-51); MONOCYTE 10 % (3-10); NEUTROPHILS 79 % (42-75)
[2018-05-23 13:44] LABS: ACANTHROCYTES 1+; OVALOCYTES 2+; TARGET CELLS 1+
== END ==
LOC: LAB 12:59
PROVIDERS: Internal Medicine
DX: C90.00 Multiple myeloma not having achieved remission (principal)

== ENCOUNTER → 2018-06-06 | Outpatient (CLI) | payer MEDICARE ==
[2018-06-06 13:31] LABS: HEMATOCRIT 35.6 % (42.0-52.0); HEMOGLOBIN 11.2 g/dL (13.5-18.0); MEAN CELL VOLUME 101 fl (78-100); MEAN CORPUSCULAR HEMOGLOBIN 32 pg (27-31); MEAN CORPUSCULAR HGB CONC 32 g/dL (33-37); MEAN PLATELET VOLUME 10.4 fl (7.4-10.4); PLATELET COUNT 237 K/mm3 (130-400); RED BLOOD COUNT 3.52 M/mm3 (4.20-5.60); RED CELL DISTRIBUTION WIDTH 17.5 % (11.5-14.5); WHITE BLOOD COUNT 7.3 K/mm3 (4.8-10.8)
[2018-06-06 14:05] LABS: LYMPHOCYTE 16 % (20-51); MONOCYTE 10 % (3-10); NEUTROPHILS 72 % (42-75); OVALOCYTES 2+; TARGET CELLS 1+
[2018-06-06 14:06] LABS: ACANTHROCYTES 1+
== END ==
LOC: LAB 13:16
PROVIDERS: Internal Medicine
DX: C90.00 Multiple myeloma not having achieved remission (principal)

== ENCOUNTER → 2018-06-22 | Outpatient (CLI) | payer MEDICARE ==
[2018-06-22 09:29] LABS: EOS # 0.5 (0.04-0.40); HEMATOCRIT 34.2 % (42.0-52.0); HEMOGLOBIN 10.3 g/dL (13.5-18.0); LYMPH# 1.4 (1.50-4.00); MEAN CELL VOLUME 105 fl (78-100); MEAN CORPUSCULAR HEMOGLOBIN 32 pg (27-31); MEAN CORPUSCULAR HGB CONC 30 g/dL (33-37); MEAN PLATELET VOLUME 10.8 fl (7.4-10.4); MONO # 0.9 (0.20-0.80); NEU # 4.8 (1.40-6.50); PLATELET COUNT 210 K/mm3 (130-400); RED BLOOD COUNT 3.27 M/mm3 (4.20-5.60); RED CELL DISTRIBUTION WIDTH 17.7 % (11.5-14.5); WHITE BLOOD COUNT 7.7 K/mm3 (4.8-10.8)
[2018-06-22 09:31] LABS: CALCIUM 7.5 mg/dL (8.4-10.2); POTASSIUM 4.4 mmol/L (3.6-5.0); TOTAL BILIRUBIN 0.4 mg/dL (0.2-1.3); TOTAL PROTEIN 5.8 g/dL (6.3-8.2)
[2018-06-22 09:37] LABS: EOS % 7.1 % (0.0-4.0)
== END ==
LOC: LAB 09:01
PROVIDERS: Internal Medicine
DX: C90.00 Multiple myeloma not having achieved remission (principal)

== ENCOUNTER → 2018-07-07 | Outpatient (CLI) | payer MEDICARE ==
[2018-07-07 13:50] LABS: HEMATOCRIT 34.7 % (42.0-52.0); HEMOGLOBIN 10.7 g/dL (13.5-18.0); MEAN CELL VOLUME 105 fl (78-100); MEAN CORPUSCULAR HEMOGLOBIN 32 pg (27-31); MEAN CORPUSCULAR HGB CONC 31 g/dL (33-37); MEAN PLATELET VOLUME 11.2 fl (7.4-10.4); PLATELET COUNT 188 K/mm3 (130-400); RED BLOOD COUNT 3.32 M/mm3 (4.20-5.60); RED CELL DISTRIBUTION WIDTH 17.1 % (11.5-14.5); WHITE BLOOD COUNT 7.5 K/mm3 (4.8-10.8)
[2018-07-07 14:46] LABS: LYMPHOCYTE 12 % (20-51); MONOCYTE 7 % (3-10); NEUTROPHILS 76 % (42-75)
[2018-07-07 14:47] LABS: POLYCHROMASIA 1+
== END ==
LOC: LAB 13:20
PROVIDERS: Internal Medicine
DX: C90.00 Multiple myeloma not having achieved remission (principal)

== ENCOUNTER → 2018-07-11 | Day surgery (SDC) | payer MEDICARE | LOC: MSO 07:33 | DX: T82.590A Other mechanical complication of surgically created arteriovenous fistula, initial encounter (principal); I12.0 Hypertensive chronic kidney disease with stage 5 chronic kidney disease or end stage renal disease; N18.6 End stage renal disease; F31.9 Bipolar disorder, unspecified; E78.5 Hyperlipidemia, unspecified; I25.2 Old myocardial infarction; I25.10 Atherosclerotic heart disease of native coronary artery without angina pectoris; E21.3 Hyperparathyroidism, unspecified; Z85.79 Personal history of other malignant neoplasms of lymphoid, hematopoietic and related tissues; Z87.11 Personal history of peptic ulcer disease | CPT/HCPCS: 01850; J2405; J2704; J7120 ==

== ENCOUNTER → 2018-07-19 | Outpatient (CLI) | payer MEDICARE ==
[2018-07-19 11:07] LABS: EOS # 0.2 (0.04-0.40); EOS % 3.4 % (0.0-4.0); HEMATOCRIT 32.4 % (42.0-52.0); LYMPH# 1.1 (1.50-4.00); MEAN CELL VOLUME 104 fl (78-100); MEAN CORPUSCULAR HEMOGLOBIN 32 pg (27-31); MEAN CORPUSCULAR HGB CONC 31 g/dL (33-37); MEAN PLATELET VOLUME 9.8 fl (7.4-10.4); MONO # 0.6 (0.20-0.80); NEU # 4.5 (1.40-6.50); PLATELET COUNT 144 K/mm3 (130-400); RED BLOOD COUNT 3.11 M/mm3 (4.20-5.60); RED CELL DISTRIBUTION WIDTH 16.6 % (11.5-14.5); WHITE BLOOD COUNT 6.5 K/mm3 (4.8-10.8)
[2018-07-19 11:39] LABS: ALBUMIN 3.2 g/dL (3.5-5.0); POTASSIUM 4.1 mmol/L (3.6-5.0); TOTAL BILIRUBIN 0.4 mg/dL (0.2-1.3); TOTAL PROTEIN 6.1 g/dL (6.3-8.2)
== END ==
LOC: LAB 10:54
PROVIDERS: Internal Medicine
DX: C90.00 Multiple myeloma not having achieved remission (principal)

== ENCOUNTER → 2018-08-12 | Outpatient (CLI) | payer MEDICARE ==
[2018-08-12 11:10] LABS: HEMATOCRIT 35.3 % (42.0-52.0); HEMOGLOBIN 10.7 g/dL (13.5-18.0); MEAN CELL VOLUME 105 fl (78-100); MEAN CORPUSCULAR HEMOGLOBIN 32 pg (27-31); MEAN CORPUSCULAR HGB CONC 30 g/dL (33-37); MEAN PLATELET VOLUME 10.2 fl (7.4-10.4); PLATELET COUNT 187 K/mm3 (130-400); RED BLOOD COUNT 3.35 M/mm3 (4.20-5.60); RED CELL DISTRIBUTION WIDTH 17.8 % (11.5-14.5); WHITE BLOOD COUNT 8.2 K/mm3 (4.8-10.8)
[2018-08-12 11:42] LABS: ALBUMIN 3.6 g/dL (3.5-5.0); CALCIUM 8.4 mg/dL (8.4-10.2); LYMPHOCYTE 13 % (20-51); MONOCYTE 11 % (3-10); NEUTROPHILS 72 % (42-75); POTASSIUM 5.1 mmol/L (3.6-5.0); TOTAL BILIRUBIN 0.5 mg/dL (0.2-1.3); TOTAL PROTEIN 6.5 g/dL (6.3-8.2)
[2018-08-12 11:43] LABS: OVALOCYTES 1+
[2018-08-13 05:11] LABS: IEPS IGA 133 mg/dL (101-645); IEPS IGG 769 mg/dL (540-1822); IEPS TP 5.8 g/dL (6.0-7.6)
[2018-08-15 12:45] LABS: ALBUMIN FRACTION 3.2 g/dL (2.6-4.5); ALBUMIN PERCENT 54.5 % (48.7-61.8); ALPHA 1 FRACTION 0.5 g/dL (0.3-0.5); ALPHA 1 PERCENT 7.9 % (3.4-8.3); ALPHA 2 FRACTION 0.9 g/dL (0.6-1.2); ALPHA 2 PERCENT 15.9 % (8.4-17.5); BETA 1 FRACTION 0.4 g/dL (0.4-0.6); BETA 2 FRACTION 0.2 g/dL (0.2-0.5); BETA 2 PERCENT 4.1 % (3.8-7.7); IEPS GAMMA FRACTION 0.7 g/dL (0.4-1.7); IEPS GAMMA PERCENTAGE 11.6 % (8.1-23.0); IEPS IGM 33 mg/dL (22-240)
== END ==
LOC: LAB 10:39
PROVIDERS: Internal Medicine
DX: C90.00 Multiple myeloma not having achieved remission (principal)

== ENCOUNTER → 2018-08-26 | Outpatient (CLI) | payer MEDICARE ==
[2018-08-26 12:20] LABS: EOS # 0.3 (0.04-0.40); EOS % 3.4 % (0.0-4.0); HEMATOCRIT 36.8 % (42.0-52.0); HEMOGLOBIN 11.3 g/dL (13.5-18.0); MEAN CELL VOLUME 103 fl (78-100); MEAN CORPUSCULAR HEMOGLOBIN 32 pg (27-31); MEAN CORPUSCULAR HGB CONC 31 g/dL (33-37); MONO # 0.8 (0.20-0.80); NEU # 5.9 (1.40-6.50); PLATELET COUNT 167 K/mm3 (130-400); RED BLOOD COUNT 3.56 M/mm3 (4.20-5.60); RED CELL DISTRIBUTION WIDTH 16.6 % (11.5-14.5)
== END ==
LOC: LAB 10:48
PROVIDERS: Internal Medicine
DX: C90.00 Multiple myeloma not having achieved remission (principal)

== ENCOUNTER → 2018-09-12 | Outpatient (CLI) | payer MEDICARE ==
[2018-09-12 10:02] LABS: EOS # 0.4 (0.04-0.40); EOS % 4.9 % (0.0-4.0); HEMATOCRIT 33.3 % (42.0-52.0); HEMOGLOBIN 10.2 g/dL (13.5-18.0); MEAN CELL VOLUME 103 fl (78-100); MEAN CORPUSCULAR HEMOGLOBIN 32 pg (27-31); MEAN CORPUSCULAR HGB CONC 31 g/dL (33-37); MEAN PLATELET VOLUME 10.4 fl (7.4-10.4); MONO # 0.7 (0.20-0.80); NEU # 5.4 (1.40-6.50); PLATELET COUNT 169 K/mm3 (130-400); RED BLOOD COUNT 3.24 M/mm3 (4.20-5.60); RED CELL DISTRIBUTION WIDTH 15.8 % (11.5-14.5); WHITE BLOOD COUNT 7.6 K/mm3 (4.8-10.8)
== END ==
LOC: LAB 09:15
PROVIDERS: Internal Medicine
DX: C90.00 Multiple myeloma not having achieved remission (principal)

== ENCOUNTER → 2018-09-24 | Outpatient (CLI) | payer MEDICARE ==
[2018-09-24 12:12] LABS: EOS # 0.3 (0.04-0.40); HEMATOCRIT 34.7 % (42.0-52.0); LYMPH# 0.9 (1.50-4.00); MEAN CELL VOLUME 102 fl (78-100); MEAN CORPUSCULAR HEMOGLOBIN 32 pg (27-31); MEAN CORPUSCULAR HGB CONC 32 g/dL (33-37); MEAN PLATELET VOLUME 10.5 fl (7.4-10.4); MONO # 0.7 (0.20-0.80); NEU # 4.1 (1.40-6.50); PLATELET COUNT 160 K/mm3 (130-400); RED BLOOD COUNT 3.41 M/mm3 (4.20-5.60); RED CELL DISTRIBUTION WIDTH 15.3 % (11.5-14.5); WHITE BLOOD COUNT 6.1 K/mm3 (4.8-10.8)
[2018-09-24 12:27] LABS: CALCIUM 8.9 mg/dL (8.4-10.2); POTASSIUM 4.4 mmol/L (3.6-5.0); TOTAL BILIRUBIN 0.7 mg/dL (0.2-1.3)
[2018-09-24 12:45] LABS: EOS % 5.4 % (0.0-4.0)
== END ==
LOC: LAB 11:54
PROVIDERS: Internal Medicine
DX: C90.00 Multiple myeloma not having achieved remission (principal)

== ENCOUNTER → 2018-10-07 | Outpatient (CLI) | payer MEDICARE ==
[2018-10-07 17:20] LABS: HEMATOCRIT 33.3 % (42.0-52.0); HEMOGLOBIN 10.1 g/dL (13.5-18.0); MEAN CELL VOLUME 103 fl (78-100); MEAN CORPUSCULAR HEMOGLOBIN 31 pg (27-31); MEAN CORPUSCULAR HGB CONC 30 g/dL (33-37); MEAN PLATELET VOLUME 10.7 fl (7.4-10.4); PLATELET COUNT 173 K/mm3 (130-400); RED BLOOD COUNT 3.23 M/mm3 (4.20-5.60); RED CELL DISTRIBUTION WIDTH 14.9 % (11.5-14.5); WHITE BLOOD COUNT 9.3 K/mm3 (4.8-10.8)
[2018-10-07 20:22] LABS: BAND 0 % (0-10); LYMPHOCYTE 3 % (20-51); NEUTROPHILS 91 % (42-75)
[2018-10-07 20:23] LABS: MONOCYTE 6 % (3-10)
== END ==
LOC: LAB 16:32
PROVIDERS: Internal Medicine
DX: C90.00 Multiple myeloma not having achieved remission (principal)

== ENCOUNTER → 2018-10-22 | Outpatient (CLI) | payer MEDICARE ==
[2018-10-22 12:11] LABS: HEMATOCRIT 32.7 % (42.0-52.0); HEMOGLOBIN 10.5 g/dL (13.5-18.0); MEAN CELL VOLUME 101 fl (78-100); MEAN CORPUSCULAR HEMOGLOBIN 33 pg (27-31); MEAN CORPUSCULAR HGB CONC 32 g/dL (33-37); MEAN PLATELET VOLUME 10.7 fl (7.4-10.4); PLATELET COUNT 183 K/mm3 (130-400); RED BLOOD COUNT 3.23 M/mm3 (4.20-5.60); RED CELL DISTRIBUTION WIDTH 14.6 % (11.5-14.5); WHITE BLOOD COUNT 6.7 K/mm3 (4.8-10.8)
[2018-10-22 12:22] LABS: ALBUMIN 3.4 g/dL (3.4-4.8); TOTAL BILIRUBIN 0.4 mg/dL (0.2-1.2); TOTAL PROTEIN 6.2 g/dL (6.2-8.1)
[2018-10-22 13:10] LABS: LYMPHOCYTE 12 % (20-51); MONOCYTE 9 % (3-10); NEUTROPHILS 76 % (42-75)
[2018-10-22 13:11] LABS: HYPOCHROMIA 1+
[2018-10-25 20:48] LABS: IEPS IGA 143 mg/dL (101-645); IEPS IGG 759 mg/dL (540-1822); IEPS IGM 26 mg/dL (22-240); IEPS TP 5.6 g/dL (6.0-7.6)
== END ==
LOC: LAB 07-29 15:59
PROVIDERS: Internal Medicine
DX: C90.00 Multiple myeloma not having achieved remission (principal)

== ENCOUNTER → 2018-11-04 | Outpatient (CLI) | payer MEDICARE ==
[2018-11-04 10:54] LABS: EOS # 0.2 (0.04-0.40); EOS % 3.4 % (0.0-4.0); HEMATOCRIT 30.5 % (42.0-52.0); HEMOGLOBIN 9.6 g/dL (13.5-18.0); LYMPH# 0.9 (1.50-4.00); MEAN CELL VOLUME 100 fl (78-100); MEAN CORPUSCULAR HEMOGLOBIN 32 pg (27-31); MEAN CORPUSCULAR HGB CONC 32 g/dL (33-37); MEAN PLATELET VOLUME 10.2 fl (7.4-10.4); MONO # 0.8 (0.20-0.80); NEU # 4.9 (1.40-6.50); PLATELET COUNT 163 K/mm3 (130-400); RED BLOOD COUNT 3.05 M/mm3 (4.20-5.60); RED CELL DISTRIBUTION WIDTH 14.9 % (11.5-14.5); WHITE BLOOD COUNT 6.9 K/mm3 (4.8-10.8)
== END ==
LOC: LAB 10:38
PROVIDERS: Internal Medicine
DX: C90.00 Multiple myeloma not having achieved remission (principal)

== ENCOUNTER → 2018-11-16 | Outpatient (CLI) | payer MEDICARE ==
[2018-11-16 16:06] LABS: HEMOGLOBIN 10.3 g/dL (13.5-18.0); MEAN CELL VOLUME 104 fl (78-100); MEAN CORPUSCULAR HEMOGLOBIN 32 pg (27-31); MEAN CORPUSCULAR HGB CONC 30 g/dL (33-37); MEAN PLATELET VOLUME 9.7 fl (7.4-10.4); PLATELET COUNT 165 K/mm3 (130-400); RED BLOOD COUNT 3.27 M/mm3 (4.20-5.60); RED CELL DISTRIBUTION WIDTH 16.9 % (11.5-14.5); WHITE BLOOD COUNT 5.8 K/mm3 (4.8-10.8)
[2018-11-16 18:50] LABS: LYMPHOCYTE 19 % (20-51); MONOCYTE 13 % (3-10); NEUTROPHILS 63 % (42-75)
== END ==
LOC: LAB 15:47
PROVIDERS: Internal Medicine
DX: C90.00 Multiple myeloma not having achieved remission (principal)

== ENCOUNTER → 2018-12-14 | Outpatient (CLI) | payer MEDICARE ==
[2018-12-14 13:51] LABS: EOS # 0.2 (0.04-0.40); EOS % 2.8 % (0.0-4.0); HEMATOCRIT 32.8 % (42.0-52.0); HEMOGLOBIN 10.2 g/dL (13.5-18.0); LYMPH# 1.1 (1.50-4.00); MEAN CELL VOLUME 105 fl (78-100); MEAN CORPUSCULAR HEMOGLOBIN 33 pg (27-31); MEAN CORPUSCULAR HGB CONC 31 g/dL (33-37); MEAN PLATELET VOLUME 10.1 fl (7.4-10.4); MONO # 0.9 (0.20-0.80); NEU # 6.2 (1.40-6.50); PLATELET COUNT 137 K/mm3 (130-400); RED BLOOD COUNT 3.13 M/mm3 (4.20-5.60); RED CELL DISTRIBUTION WIDTH 14.9 % (11.5-14.5); WHITE BLOOD COUNT 8.5 K/mm3 (4.8-10.8)
== END ==
LOC: LAB 13:26
PROVIDERS: Internal Medicine Nephrology
DX: C90.00 Multiple myeloma not having achieved remission (principal)

== ENCOUNTER → 2018-12-28 | Outpatient (CLI) | payer MEDICARE ==
[2018-12-28 14:00] LABS: EOS # 0.2 (0.04-0.40); EOS % 3.4 % (0.0-4.0); HEMOGLOBIN 9.9 g/dL (13.5-18.0); LYMPH# 0.9 (1.50-4.00); MEAN CELL VOLUME 105 fl (78-100); MEAN CORPUSCULAR HEMOGLOBIN 32 pg (27-31); MEAN CORPUSCULAR HGB CONC 31 g/dL (33-37); MEAN PLATELET VOLUME 10.7 fl (7.4-10.4); MONO # 0.5 (0.20-0.80); NEU # 4.6 (1.40-6.50); PLATELET COUNT 112 K/mm3 (130-400); RED BLOOD COUNT 3.06 M/mm3 (4.20-5.60); RED CELL DISTRIBUTION WIDTH 14.6 % (11.5-14.5); WHITE BLOOD COUNT 6.2 K/mm3 (4.8-10.8)
[2018-12-28 14:08] LABS: ALBUMIN 3.4 g/dL (3.4-4.8); POTASSIUM 4.7 mmol/L (3.5-5.1)
[2018-12-28 14:09] LABS: CALCIUM 8.9 mg/dL (8.3-10.5)
[2018-12-28 14:12] LABS: TOTAL BILIRUBIN 0.4 mg/dL (0.2-1.2)
== END ==
LOC: LAB 13:46
PROVIDERS: Internal Medicine Nephrology
DX: C90.00 Multiple myeloma not having achieved remission (principal)

== ENCOUNTER → 2019-01-11 | Outpatient (CLI) | payer MEDICARE ==
[2019-01-11 13:31] LABS: EOS # 0.2 (0.04-0.40); EOS % 3.5 % (0.0-4.0); HEMATOCRIT 35.4 % (42.0-52.0); HEMOGLOBIN 11.1 g/dL (13.5-18.0); LYMPH# 0.9 (1.50-4.00); MEAN CELL VOLUME 106 fl (78-100); MEAN CORPUSCULAR HEMOGLOBIN 33 pg (27-31); MEAN CORPUSCULAR HGB CONC 31 g/dL (33-37); MEAN PLATELET VOLUME 9.4 fl (7.4-10.4); MONO # 0.5 (0.20-0.80); NEU # 4.7 (1.40-6.50); PLATELET COUNT 125 K/mm3 (130-400); RED BLOOD COUNT 3.34 M/mm3 (4.20-5.60); RED CELL DISTRIBUTION WIDTH 15.3 % (11.5-14.5); WHITE BLOOD COUNT 6.3 K/mm3 (4.8-10.8)
== END ==
LOC: LAB 13:18
PROVIDERS: Internal Medicine
DX: C90.00 Multiple myeloma not having achieved remission (principal)

== ENCOUNTER → 2019-01-25 | Outpatient (CLI) | payer MEDICARE ==
[2019-01-25 12:57] LABS: EOS # 0.3 (0.04-0.40); EOS % 4.9 % (0.0-4.0); LYMPH# 0.8 (1.50-4.00); MEAN CELL VOLUME 104 fl (78-100); MEAN CORPUSCULAR HEMOGLOBIN 33 pg (27-31); MEAN CORPUSCULAR HGB CONC 32 g/dL (33-37); MEAN PLATELET VOLUME 11.2 fl (7.4-10.4); MONO # 0.5 (0.20-0.80); NEU # 3.7 (1.40-6.50); PLATELET COUNT 98 K/mm3 (130-400); RED BLOOD COUNT 3.66 M/mm3 (4.20-5.60); RED CELL DISTRIBUTION WIDTH 14.6 % (11.5-14.5); WHITE BLOOD COUNT 5.3 K/mm3 (4.8-10.8)
== END ==
LOC: LAB 12:45
PROVIDERS: Internal Medicine Nephrology
DX: C90.00 Multiple myeloma not having achieved remission (principal)

== ENCOUNTER → 2019-02-08 | Outpatient (CLI) | payer MEDICARE ==
[2019-02-08 14:54] LABS: EOS # 0.3 (0.04-0.40); EOS % 4.1 % (0.0-4.0); HEMATOCRIT 36.2 % (42.0-52.0); HEMOGLOBIN 11.4 g/dL (13.5-18.0); LYMPH# 1.1 (1.50-4.00); MEAN CELL VOLUME 102 fl (78-100); MEAN CORPUSCULAR HEMOGLOBIN 32 pg (27-31); MEAN CORPUSCULAR HGB CONC 32 g/dL (33-37); MEAN PLATELET VOLUME 10.5 fl (7.4-10.4); MONO # 0.7 (0.20-0.80); PLATELET COUNT 119 K/mm3 (130-400); RED BLOOD COUNT 3.54 M/mm3 (4.20-5.60); RED CELL DISTRIBUTION WIDTH 14.7 % (11.5-14.5); WHITE BLOOD COUNT 7.1 K/mm3 (4.8-10.8)
== END ==
LOC: LAB 14:42
PROVIDERS: Internal Medicine
DX: C90.00 Multiple myeloma not having achieved remission (principal)

== ENCOUNTER → 2019-02-22 | Outpatient (CLI) | payer MEDICARE ==
[2019-02-22 15:18] LABS: EOS # 0.2 (0.04-0.40); EOS % 2.9 % (0.0-4.0); HEMATOCRIT 34.2 % (42.0-52.0); HEMOGLOBIN 10.9 g/dL (13.5-18.0); LYMPH# 1.2 (1.50-4.00); MEAN CELL VOLUME 102 fl (78-100); MEAN CORPUSCULAR HEMOGLOBIN 32 pg (27-31); MEAN CORPUSCULAR HGB CONC 32 g/dL (33-37); MEAN PLATELET VOLUME 10.4 fl (7.4-10.4); MONO # 0.7 (0.20-0.80); NEU # 5.6 (1.40-6.50); PLATELET COUNT 118 K/mm3 (130-400); RED BLOOD COUNT 3.36 M/mm3 (4.20-5.60); RED CELL DISTRIBUTION WIDTH 14.9 % (11.5-14.5); WHITE BLOOD COUNT 7.6 K/mm3 (4.8-10.8)
[2019-02-22 15:28] LABS: ALBUMIN 3.5 g/dL (3.4-4.8)
[2019-02-22 15:29] LABS: POTASSIUM 4.4 mmol/L (3.5-5.1)
[2019-02-22 15:30] LABS: CALCIUM 8.8 mg/dL (8.3-10.5)
[2019-02-22 15:31] LABS: TOTAL PROTEIN 6.2 g/dL (6.2-8.1)
[2019-02-22 15:33] LABS: TOTAL BILIRUBIN 0.4 mg/dL (0.2-1.2)
[2019-02-24 02:05] LABS: KAPPA LAMBDA RATIO 3.67 ratio (())
== END ==
LOC: LAB 14:56
PROVIDERS: Internal Medicine
DX: C90.00 Multiple myeloma not having achieved remission (principal)

== ENCOUNTER → 2019-03-09 | Outpatient (CLI) | payer MEDICARE ==
[2019-03-09 11:21] LABS: EOS # 0.2 (0.04-0.40); EOS % 3.3 % (0.0-4.0); HEMATOCRIT 35.6 % (42.0-52.0); HEMOGLOBIN 11.4 g/dL (13.5-18.0); LYMPH# 0.9 (1.50-4.00); MEAN CELL VOLUME 103 fl (78-100); MEAN CORPUSCULAR HEMOGLOBIN 33 pg (27-31); MEAN CORPUSCULAR HGB CONC 32 g/dL (33-37); MEAN PLATELET VOLUME 10.8 fl (7.4-10.4); MONO # 0.8 (0.20-0.80); NEU # 4.7 (1.40-6.50); PLATELET COUNT 94 K/mm3 (130-400); RED BLOOD COUNT 3.46 M/mm3 (4.20-5.60); RED CELL DISTRIBUTION WIDTH 15.5 % (11.5-14.5); WHITE BLOOD COUNT 6.6 K/mm3 (4.8-10.8)
[2019-03-09 11:45] LABS: ALBUMIN 3.6 g/dL (3.4-4.8); POTASSIUM 4.4 mmol/L (3.5-5.1)
[2019-03-09 11:47] LABS: CALCIUM 9.1 mg/dL (8.3-10.5)
[2019-03-09 11:48] LABS: TOTAL PROTEIN 6.2 g/dL (6.2-8.1)
[2019-03-09 11:50] LABS: TOTAL BILIRUBIN 0.5 mg/dL (0.2-1.2)
[2019-03-09 12:28] LABS: ERYTHROCYTE SEDIMENTATION RATE 25 mm/hr (0-20)
== END ==
LOC: LAB 10:52
PROVIDERS: Internal Medicine Nephrology
DX: Z12.5 Encounter for screening for malignant neoplasm of prostate (principal); I10 Essential (primary) hypertension; C90.00 Multiple myeloma not having achieved remission; I25.10 Atherosclerotic heart disease of native coronary artery without angina pectoris; E78.5 Hyperlipidemia, unspecified; K92.2 Gastrointestinal hemorrhage, unspecified

== ENCOUNTER → 2019-03-22 | Outpatient (CLI) | payer MEDICARE ==
[2019-03-22 15:12] LABS: EOS # 0.2 (0.04-0.40); EOS % 3.7 % (0.0-4.0); HEMATOCRIT 33.4 % (42.0-52.0); HEMOGLOBIN 10.6 g/dL (13.5-18.0); MEAN CELL VOLUME 103 fl (78-100); MEAN CORPUSCULAR HEMOGLOBIN 33 pg (27-31); MEAN CORPUSCULAR HGB CONC 32 g/dL (33-37); MEAN PLATELET VOLUME 10.8 fl (7.4-10.4); MONO # 0.6 (0.20-0.80); NEU # 4.2 (1.40-6.50); PLATELET COUNT 110 K/mm3 (130-400); RED BLOOD COUNT 3.26 M/mm3 (4.20-5.60); RED CELL DISTRIBUTION WIDTH 15.1 % (11.5-14.5)
== END ==
LOC: LAB 14:55
PROVIDERS: Internal Medicine
DX: C90.00 Multiple myeloma not having achieved remission (principal)

== ENCOUNTER → 2019-04-05 | Outpatient (CLI) | payer MEDICARE ==
[2019-04-05 15:37] LABS: EOS # 0.2 (0.04-0.40); HEMATOCRIT 31.7 % (42.0-52.0); LYMPH# 1.2 (1.50-4.00); MEAN CELL VOLUME 105 fl (78-100); MEAN CORPUSCULAR HEMOGLOBIN 33 pg (27-31); MEAN CORPUSCULAR HGB CONC 32 g/dL (33-37); MEAN PLATELET VOLUME 10.5 fl (7.4-10.4); MONO # 0.9 (0.20-0.80); NEU # 5.6 (1.40-6.50); PLATELET COUNT 135 K/mm3 (130-400); RED BLOOD COUNT 3.03 M/mm3 (4.20-5.60); RED CELL DISTRIBUTION WIDTH 15.4 % (11.5-14.5); WHITE BLOOD COUNT 7.9 K/mm3 (4.8-10.8)
== END ==
LOC: LAB 15:25
PROVIDERS: Internal Medicine
DX: C90.00 Multiple myeloma not having achieved remission (principal)

== ENCOUNTER → 2019-04-19 | Outpatient (CLI) | payer MEDICARE ==
[2019-04-19 14:46] LABS: EOS # 0.2 (0.04-0.40); EOS % 2.7 % (0.0-4.0); HEMATOCRIT 30.9 % (42.0-52.0); HEMOGLOBIN 9.6 g/dL (13.5-18.0); MEAN CELL VOLUME 107 fl (78-100); MEAN CORPUSCULAR HEMOGLOBIN 33 pg (27-31); MEAN CORPUSCULAR HGB CONC 31 g/dL (33-37); MEAN PLATELET VOLUME 10.3 fl (7.4-10.4); MONO # 0.6 (0.20-0.80); NEU # 4.5 (1.40-6.50); PLATELET COUNT 113 K/mm3 (130-400); WHITE BLOOD COUNT 6.3 K/mm3 (4.8-10.8)
[2019-04-19 14:59] LABS: ALBUMIN 3.8 g/dL (3.4-4.8); POTASSIUM 4.5 mmol/L (3.5-5.1)
[2019-04-19 15:00] LABS: CALCIUM 8.7 mg/dL (8.3-10.5)
[2019-04-19 15:02] LABS: TOTAL PROTEIN 6.5 g/dL (6.2-8.1)
[2019-04-19 15:03] LABS: TOTAL BILIRUBIN 0.5 mg/dL (0.2-1.2)
[2019-04-21 08:33] LABS: KAPPA LAMBDA RATIO 3.57 ratio (())
== END ==
LOC: LAB 14:25
PROVIDERS: Internal Medicine Nephrology
DX: C90.00 Multiple myeloma not having achieved remission (principal)

== ENCOUNTER → 2019-05-05 | Outpatient (CLI) | payer MEDICARE ==
[2019-05-05 12:52] LABS: EOS # 0.2 (0.04-0.40); EOS % 2.8 % (0.0-4.0); HEMATOCRIT 36.6 % (42.0-52.0); HEMOGLOBIN 11.3 g/dL (13.5-18.0); LYMPH# 0.9 (1.50-4.00); MEAN CELL VOLUME 110 fl (78-100); MEAN CORPUSCULAR HEMOGLOBIN 34 pg (27-31); MEAN CORPUSCULAR HGB CONC 31 g/dL (33-37); MONO # 0.6 (0.20-0.80); NEU # 4.5 (1.40-6.50); PLATELET COUNT 94 K/mm3 (130-400); RED BLOOD COUNT 3.34 M/mm3 (4.20-5.60); RED CELL DISTRIBUTION WIDTH 16.6 % (11.5-14.5); WHITE BLOOD COUNT 6.2 K/mm3 (4.8-10.8)
== END ==
LOC: LAB 12:39
PROVIDERS: Internal Medicine
DX: C90.00 Multiple myeloma not having achieved remission (principal)

== ENCOUNTER → 2019-05-17 | Outpatient (CLI) | payer MEDICARE ==
[2019-05-17 13:46] LABS: EOS # 0.2 (0.04-0.40); EOS % 3.2 % (0.0-4.0); HEMATOCRIT 37.8 % (42.0-52.0); HEMOGLOBIN 11.8 g/dL (13.5-18.0); MEAN CELL VOLUME 109 fl (78-100); MEAN CORPUSCULAR HEMOGLOBIN 34 pg (27-31); MEAN CORPUSCULAR HGB CONC 31 g/dL (33-37); MEAN PLATELET VOLUME 10.6 fl (7.4-10.4); MONO # 0.5 (0.20-0.80); NEU # 4.6 (1.40-6.50); PLATELET COUNT 108 K/mm3 (130-400); RED BLOOD COUNT 3.47 M/mm3 (4.20-5.60); RED CELL DISTRIBUTION WIDTH 14.4 % (11.5-14.5); WHITE BLOOD COUNT 6.3 K/mm3 (4.8-10.8)
== END ==
LOC: LAB 13:35
PROVIDERS: Internal Medicine
DX: C90.00 Multiple myeloma not having achieved remission (principal)

== ENCOUNTER → 2019-06-02 | Outpatient (CLI) | payer MEDICARE ==
[2019-06-02 13:31] LABS: EOS # 0.2 (0.04-0.40); EOS % 2.5 % (0.0-4.0); HEMATOCRIT 38.4 % (42.0-52.0); HEMOGLOBIN 12.1 g/dL (13.5-18.0); LYMPH# 1.1 (1.50-4.00); MEAN CELL VOLUME 108 fl (78-100); MEAN CORPUSCULAR HEMOGLOBIN 34 pg (27-31); MEAN CORPUSCULAR HGB CONC 32 g/dL (33-37); MEAN PLATELET VOLUME 10.7 fl (7.4-10.4); NEU # 6.7 (1.40-6.50); PLATELET COUNT 162 K/mm3 (130-400); RED BLOOD COUNT 3.56 M/mm3 (4.20-5.60); RED CELL DISTRIBUTION WIDTH 13.9 % (11.5-14.5); WHITE BLOOD COUNT 9.1 K/mm3 (4.8-10.8)
== END ==
LOC: LAB 13:14
PROVIDERS: Internal Medicine
DX: C90.00 Multiple myeloma not having achieved remission (principal)

== ENCOUNTER → 2019-06-14 | Outpatient (CLI) | payer MEDICARE ==
[2019-06-14 15:11] LABS: ALBUMIN 3.7 g/dL (3.4-4.8)
[2019-06-14 15:12] LABS: CALCIUM 8.4 mg/dL (8.3-10.5)
[2019-06-14 15:13] LABS: EOS # 0.2 (0.04-0.40); EOS % 2.5 % (0.0-4.0); HEMATOCRIT 36.2 % (42.0-52.0); HEMOGLOBIN 11.5 g/dL (13.5-18.0); MEAN CELL VOLUME 108 fl (78-100); MEAN CORPUSCULAR HEMOGLOBIN 34 pg (27-31); MEAN CORPUSCULAR HGB CONC 32 g/dL (33-37); MEAN PLATELET VOLUME 10.8 fl (7.4-10.4); MONO # 0.6 (0.20-0.80); NEU # 5.9 (1.40-6.50); PLATELET COUNT 104 K/mm3 (130-400); RED BLOOD COUNT 3.36 M/mm3 (4.20-5.60); RED CELL DISTRIBUTION WIDTH 13.9 % (11.5-14.5); TOTAL PROTEIN 6.6 g/dL (6.2-8.1); WHITE BLOOD COUNT 7.7 K/mm3 (4.8-10.8)
[2019-06-14 15:15] LABS: TOTAL BILIRUBIN 0.5 mg/dL (0.2-1.2)
[2019-06-14 23:12] LABS: IGM,SERUM 31 mg/dL (22-240); IMMUNOGLOBULIN A 152 mg/dL (101-645); IMMUNOGLOBULIN G 878 mg/dL (540-1822)
== END ==
LOC: LAB 14:36
PROVIDERS: Internal Medicine
DX: C90.00 Multiple myeloma not having achieved remission (principal)

== ENCOUNTER → 2019-06-28 | Outpatient (CLI) | payer MEDICARE ==
[~2019-06-28] MED LIST changes: +DESYREL50 MG PO; +FERROUS SULFATE65 MG PO; +FOLIC ACID1 MG PO; +PANTOPRAZOLE SO40 MG PO; +TYLENOL EXTRA500 M2 PO; +VITAMIN B-121000 MC1 SL
[2019-06-28 14:06] LABS: EOS # 0.3 (0.04-0.40); HEMATOCRIT 37.3 % (42.0-52.0); HEMOGLOBIN 11.9 g/dL (13.5-18.0); LYMPH# 1.2 (1.50-4.00); MEAN CELL VOLUME 106 fl (78-100); MEAN CORPUSCULAR HEMOGLOBIN 34 pg (27-31); MEAN CORPUSCULAR HGB CONC 32 g/dL (33-37); MEAN PLATELET VOLUME 10.4 fl (7.4-10.4); MONO # 0.8 (0.20-0.80); PLATELET COUNT 97 K/mm3 (130-400); RED BLOOD COUNT 3.52 M/mm3 (4.20-5.60); RED CELL DISTRIBUTION WIDTH 13.8 % (11.5-14.5); WHITE BLOOD COUNT 8.3 K/mm3 (4.8-10.8)
== END ==
LOC: LAB 13:55
PROVIDERS: Internal Medicine
DX: C90.00 Multiple myeloma not having achieved remission (principal)

== ENCOUNTER 2019-07-02 13:20 | Emergency (ER) | payer MEDICARE ==
[~2019-07-02] VITALS: Ht 162.6 cm; Wt 55.9 kg
[~2019-07-02 13:20] MED LIST changes: -DESYREL50 MG PO; -FERROUS SULFATE65 MG PO; -FOLIC ACID1 MG PO; -PANTOPRAZOLE SO40 MG PO; -TYLENOL EXTRA500 M2 PO; -VITAMIN B-121000 MC1 SL
[2019-07-02] MEDS ORDERED: TYLENOL EXTRA500 M2 PO (13:42)
[2019-07-02] MEDS ORDERED: FOLIC ACID1 MG PO (13:43)
[2019-07-02] MEDS ORDERED: PANTOPRAZOLE SO40 MG PO (13:43)
[2019-07-02] MEDS ORDERED: VITAMIN B-121000 MC1 SL (13:44)
[2019-07-02] MEDS ORDERED: CRESTOR 10MG10 MG PO (13:45)
[2019-07-02] MEDS ORDERED: FERROUS SULFATE65 MG PO (13:45)
[2019-07-02] MEDS ORDERED: DESYREL50 MG PO (13:46)
[2019-07-02 14:55] LABS: HEMATOCRIT 38.2 % (42.0-52.0); MEAN CELL VOLUME 107 fl (78-100); MEAN CORPUSCULAR HEMOGLOBIN 34 pg (27-31); MEAN CORPUSCULAR HGB CONC 31 g/dL (33-37); MEAN PLATELET VOLUME 10.5 fl (7.4-10.4); PLATELET COUNT 105 K/mm3 (130-400); RED BLOOD COUNT 3.57 M/mm3 (4.20-5.60); RED CELL DISTRIBUTION WIDTH 13.9 % (11.5-14.5); WHITE BLOOD COUNT 5.9 K/mm3 (4.8-10.8)
[2019-07-02 15:06] LABS: POTASSIUM 4.7 mmol/L (3.5-5.1)
[2019-07-02 15:21] LABS: LYMPHOCYTE 22 % (20-51); MONOCYTE 12 % (3-10); NEUTROPHILS 62 % (42-75); OVALOCYTES 1+
[2019-07-02 16:15] VITALS: BP 122/64
== END 2019-07-02 16:15 | disposition home or self-care (01) ==
LOC: ED 13:20
PROVIDERS: Family Medicine
DX: J06.9 Acute upper respiratory infection, unspecified (principal); E78.5 Hyperlipidemia, unspecified; M10.9 Gout, unspecified; N19 Unspecified kidney failure; Z85.79 Personal history of other malignant neoplasms of lymphoid, hematopoietic and related tissues; Z99.2 Dependence on renal dialysis

== ENCOUNTER → 2019-07-12 | Outpatient (CLI) | payer MEDICARE ==
[2019-07-02 16:15] VITALS: BP 122/64
[~2019-07-12] MED LIST changes: +DESYREL50 MG PO; +FERROUS SULFATE65 MG PO; +FOLIC ACID1 MG PO; +PANTOPRAZOLE SO40 MG PO; +TYLENOL EXTRA500 M2 PO; +VITAMIN B-121000 MC1 SL
[2019-07-12 13:41] LABS: EOS # 0.3 (0.04-0.40); EOS % 3.4 % (0.0-4.0); HEMATOCRIT 37.7 % (42.0-52.0); LYMPH# 1.2 (1.50-4.00); MEAN CELL VOLUME 105 fl (78-100); MEAN CORPUSCULAR HEMOGLOBIN 34 pg (27-31); MEAN CORPUSCULAR HGB CONC 32 g/dL (33-37); MONO # 0.7 (0.20-0.80); NEU # 5.1 (1.40-6.50); PLATELET COUNT 96 K/mm3 (130-400); RED BLOOD COUNT 3.58 M/mm3 (4.20-5.60); RED CELL DISTRIBUTION WIDTH 13.7 % (11.5-14.5); WHITE BLOOD COUNT 7.4 K/mm3 (4.8-10.8)
== END ==
LOC: LAB 13:15
PROVIDERS: Internal Medicine
DX: C90.00 Multiple myeloma not having achieved remission (principal)

== ENCOUNTER → 2019-07-14 | Outpatient (CLI) | payer MEDICARE ==
[2019-07-02 16:15] VITALS: BP 122/64
== END ==
LOC: RAD 10:49
DX: G93.40 Encephalopathy, unspecified (principal)

== ENCOUNTER → 2019-07-26 | Outpatient (CLI) | payer MEDICARE ==
[2019-07-02 16:15] VITALS: BP 122/64
[2019-07-26 12:37] LABS: EOS # 0.2 (0.04-0.40); EOS % 3.3 % (0.0-4.0); HEMATOCRIT 37.8 % (42.0-52.0); HEMOGLOBIN 11.7 g/dL (13.5-18.0); LYMPH# 0.8 (1.50-4.00); MEAN CELL VOLUME 106 fl (78-100); MEAN CORPUSCULAR HEMOGLOBIN 33 pg (27-31); MEAN CORPUSCULAR HGB CONC 31 g/dL (33-37); MEAN PLATELET VOLUME 9.7 fl (7.4-10.4); MONO # 0.7 (0.20-0.80); NEU # 4.6 (1.40-6.50); PLATELET COUNT 97 K/mm3 (130-400); RED BLOOD COUNT 3.56 M/mm3 (4.20-5.60); RED CELL DISTRIBUTION WIDTH 14.8 % (11.5-14.5); WHITE BLOOD COUNT 6.4 K/mm3 (4.8-10.8)
[2019-07-26 12:44] LABS: ALBUMIN 3.7 g/dL (3.4-4.8)
[2019-07-26 12:45] LABS: POTASSIUM 4.4 mmol/L (3.5-5.1)
[2019-07-26 12:46] LABS: CALCIUM 8.5 mg/dL (8.3-10.5)
[2019-07-26 12:47] LABS: TOTAL PROTEIN 6.6 g/dL (6.2-8.1)
[2019-07-26 12:49] LABS: TOTAL BILIRUBIN 0.5 mg/dL (0.2-1.2)
[2019-07-27 08:12] LABS: KAPPA LAMBDA RATIO 2.01 ratio (())
== END ==
LOC: LAB 12:20
PROVIDERS: Internal Medicine
DX: C90.00 Multiple myeloma not having achieved remission (principal)

== ENCOUNTER → 2019-08-09 | Outpatient (CLI) | payer MEDICARE ==
[2019-08-09 13:45] LABS: EOS # 0.3 (0.04-0.40); EOS % 3.3 % (0.0-4.0); HEMATOCRIT 36.3 % (42.0-52.0); HEMOGLOBIN 11.2 g/dL (13.5-18.0); MEAN CELL VOLUME 107 fl (78-100); MEAN CORPUSCULAR HEMOGLOBIN 33 pg (27-31); MEAN CORPUSCULAR HGB CONC 31 g/dL (33-37); MEAN PLATELET VOLUME 10.5 fl (7.4-10.4); MONO # 0.8 (0.20-0.80); NEU # 5.4 (1.40-6.50); PLATELET COUNT 98 K/mm3 (130-400); RED BLOOD COUNT 3.39 M/mm3 (4.20-5.60); WHITE BLOOD COUNT 7.5 K/mm3 (4.8-10.8)
== END ==
LOC: LAB 13:28
PROVIDERS: Internal Medicine
DX: C90.00 Multiple myeloma not having achieved remission (principal)

== ENCOUNTER → 2019-08-24 | Outpatient (CLI) | payer MEDICARE ==
[2019-08-24 13:35] LABS: EOS # 0.3 (0.04-0.40); EOS % 3.7 % (0.0-4.0); HEMATOCRIT 38.4 % (42.0-52.0); HEMOGLOBIN 12.2 g/dL (13.5-18.0); MEAN CELL VOLUME 105 fl (78-100); MEAN CORPUSCULAR HEMOGLOBIN 33 pg (27-31); MEAN CORPUSCULAR HGB CONC 32 g/dL (33-37); MEAN PLATELET VOLUME 10.5 fl (7.4-10.4); MONO # 0.9 (0.20-0.80); NEU # 5.6 (1.40-6.50); PLATELET COUNT 109 K/mm3 (130-400); RED BLOOD COUNT 3.66 M/mm3 (4.20-5.60); RED CELL DISTRIBUTION WIDTH 14.9 % (11.5-14.5); WHITE BLOOD COUNT 7.8 K/mm3 (4.8-10.8)
== END ==
LOC: LAB 13:21
PROVIDERS: Internal Medicine
DX: C90.00 Multiple myeloma not having achieved remission (principal)

== ENCOUNTER → 2019-09-06 | Outpatient (CLI) | payer MEDICARE ==
[2019-09-06 13:59] LABS: EOS # 0.2 (0.04-0.40); EOS % 3.9 % (0.0-4.0); HEMATOCRIT 36.1 % (42.0-52.0); HEMOGLOBIN 11.6 g/dL (13.5-18.0); LYMPH# 0.8 (1.50-4.00); MEAN CELL VOLUME 105 fl (78-100); MEAN CORPUSCULAR HEMOGLOBIN 34 pg (27-31); MEAN CORPUSCULAR HGB CONC 32 g/dL (33-37); MEAN PLATELET VOLUME 10.5 fl (7.4-10.4); MONO # 0.4 (0.20-0.80); PLATELET COUNT 88 K/mm3 (130-400); RED BLOOD COUNT 3.45 M/mm3 (4.20-5.60); RED CELL DISTRIBUTION WIDTH 14.2 % (11.5-14.5); WHITE BLOOD COUNT 5.4 K/mm3 (4.8-10.8)
[2019-09-06 14:04] LABS: ALBUMIN 3.6 g/dL (3.4-4.8); POTASSIUM 3.9 mmol/L (3.5-5.1)
[2019-09-06 14:06] LABS: CALCIUM 8.5 mg/dL (8.3-10.5)
[2019-09-06 14:07] LABS: TOTAL PROTEIN 6.1 g/dL (6.2-8.1)
[2019-09-06 14:09] LABS: TOTAL BILIRUBIN 0.6 mg/dL (0.2-1.2)
[2019-09-06 21:32] LABS: IGM,SERUM 33 mg/dL (22-240); IMMUNOGLOBULIN A 151 mg/dL (101-645); IMMUNOGLOBULIN G 981 mg/dL (540-1822)
[2019-09-08 16:48] LABS: A/G RATIO (PEP) 1.13 (()); BETA GLOBULINS (PEP) 0.8 g/dL (0.7-1.2)
== END ==
LOC: LAB 13:26
PROVIDERS: Internal Medicine
DX: C90.00 Multiple myeloma not having achieved remission (principal)

== ENCOUNTER → 2019-09-21 | Outpatient (CLI) | payer MEDICARE ==
[2019-09-21 16:55] LABS: EOS # 0.3 (0.04-0.40); EOS % 4.3 % (0.0-4.0); HEMATOCRIT 37.2 % (42.0-52.0); HEMOGLOBIN 11.8 g/dL (13.5-18.0); MEAN CELL VOLUME 108 fl (78-100); MEAN CORPUSCULAR HEMOGLOBIN 34 pg (27-31); MEAN CORPUSCULAR HGB CONC 32 g/dL (33-37); MEAN PLATELET VOLUME 10.5 fl (7.4-10.4); MONO # 0.6 (0.20-0.80); NEU # 4.8 (1.40-6.50); PLATELET COUNT 105 K/mm3 (130-400); RED BLOOD COUNT 3.46 M/mm3 (4.20-5.60); RED CELL DISTRIBUTION WIDTH 14.3 % (11.5-14.5); WHITE BLOOD COUNT 6.7 K/mm3 (4.8-10.8)
== END ==
LOC: LAB 16:38
PROVIDERS: Internal Medicine
DX: C90.00 Multiple myeloma not having achieved remission (principal)

== ENCOUNTER → 2019-10-05 | Outpatient (CLI) | payer MEDICARE ==
[2019-10-05 16:33] LABS: EOS # 0.1 (0.04-0.40); EOS % 2.4 % (0.0-4.0); HEMATOCRIT 34.4 % (42.0-52.0); HEMOGLOBIN 11.1 g/dL (13.5-18.0); MEAN CELL VOLUME 106 fl (78-100); MEAN CORPUSCULAR HEMOGLOBIN 34 pg (27-31); MEAN CORPUSCULAR HGB CONC 32 g/dL (33-37); MEAN PLATELET VOLUME 10.6 fl (7.4-10.4); MONO # 0.6 (0.20-0.80); NEU # 3.8 (1.40-6.50); PLATELET COUNT 89 K/mm3 (130-400); RED BLOOD COUNT 3.25 M/mm3 (4.20-5.60); RED CELL DISTRIBUTION WIDTH 13.9 % (11.5-14.5); WHITE BLOOD COUNT 5.5 K/mm3 (4.8-10.8)
== END ==
LOC: LAB 16:10
PROVIDERS: Internal Medicine Nephrology
DX: C90.00 Multiple myeloma not having achieved remission (principal)

== ENCOUNTER → 2019-10-21 | Outpatient (CLI) | payer MEDICARE ==
[2019-10-21 12:16] LABS: EOS # 0.2 (0.04-0.40); EOS % 2.6 % (0.0-4.0); HEMATOCRIT 36.3 % (42.0-52.0); HEMOGLOBIN 11.9 g/dL (13.5-18.0); LYMPH# 0.9 (1.50-4.00); MEAN CELL VOLUME 107 fl (78-100); MEAN CORPUSCULAR HEMOGLOBIN 35 pg (27-31); MEAN CORPUSCULAR HGB CONC 33 g/dL (33-37); MONO # 0.7 (0.20-0.80); PLATELET COUNT 92 K/mm3 (130-400); RED BLOOD COUNT 3.41 M/mm3 (4.20-5.60); RED CELL DISTRIBUTION WIDTH 13.8 % (11.5-14.5); WHITE BLOOD COUNT 6.9 K/mm3 (4.8-10.8)
[2019-10-21 12:27] LABS: ALBUMIN 3.8 g/dL (3.4-4.8); POTASSIUM 4.3 mmol/L (3.5-5.1)
[2019-10-21 12:29] LABS: TOTAL PROTEIN 6.4 g/dL (6.2-8.1)
[2019-10-21 12:31] LABS: TOTAL BILIRUBIN 0.5 mg/dL (0.2-1.2)
[2019-10-24 07:59] LABS: KAPPA LAMBDA RATIO 2.06 ratio (())
== END ==
LOC: LAB 11:33
PROVIDERS: Internal Medicine
DX: C90.00 Multiple myeloma not having achieved remission (principal)

== ENCOUNTER → 2019-11-02 | Outpatient (CLI) | payer MEDICARE ==
[2019-11-02 13:11] LABS: EOS # 0.2 (0.04-0.40); EOS % 3.2 % (0.0-4.0); HEMOGLOBIN 11.8 g/dL (13.5-18.0); LYMPH# 1.2 (1.50-4.00); MEAN CELL VOLUME 107 fl (78-100); MEAN CORPUSCULAR HEMOGLOBIN 34 pg (27-31); MEAN CORPUSCULAR HGB CONC 32 g/dL (33-37); MEAN PLATELET VOLUME 11.2 fl (7.4-10.4); MONO # 0.6 (0.20-0.80); NEU # 4.8 (1.40-6.50); PLATELET COUNT 115 K/mm3 (130-400); RED BLOOD COUNT 3.45 M/mm3 (4.20-5.60); WHITE BLOOD COUNT 6.8 K/mm3 (4.8-10.8)
== END ==
LOC: LAB 12:27
PROVIDERS: Internal Medicine
DX: C90.00 Multiple myeloma not having achieved remission (principal)

== ENCOUNTER → 2019-11-16 | Outpatient (CLI) | payer MEDICARE ==
[2019-11-16 15:04] LABS: EOS # 0.1 (0.04-0.40); EOS % 2.2 % (0.0-4.0); HEMATOCRIT 36.1 % (42.0-52.0); HEMOGLOBIN 11.4 g/dL (13.5-18.0); LYMPH# 0.9 (1.50-4.00); MEAN CELL VOLUME 107 fl (78-100); MEAN CORPUSCULAR HEMOGLOBIN 34 pg (27-31); MEAN CORPUSCULAR HGB CONC 32 g/dL (33-37); MEAN PLATELET VOLUME 10.6 fl (7.4-10.4); MONO # 0.5 (0.20-0.80); NEU # 4.8 (1.40-6.50); PLATELET COUNT 103 K/mm3 (130-400); RED BLOOD COUNT 3.37 M/mm3 (4.20-5.60); RED CELL DISTRIBUTION WIDTH 13.8 % (11.5-14.5); WHITE BLOOD COUNT 6.4 K/mm3 (4.8-10.8)
[2019-11-16 15:09] LABS: ALBUMIN 3.8 g/dL (3.4-4.8); POTASSIUM 4.8 mmol/L (3.5-5.1)
[2019-11-16 15:10] LABS: CALCIUM 8.7 mg/dL (8.3-10.5)
[2019-11-16 15:11] LABS: TOTAL PROTEIN 6.6 g/dL (6.2-8.1)
[2019-11-16 15:13] LABS: TOTAL BILIRUBIN 0.5 mg/dL (0.2-1.2)
== END ==
LOC: LAB 14:42
PROVIDERS: Internal Medicine
DX: C90.00 Multiple myeloma not having achieved remission (principal)

== ENCOUNTER → 2019-11-30 | Outpatient (CLI) | payer MEDICARE ==
[2019-11-30 14:24] LABS: EOS # 0.1 (0.04-0.40); EOS % 2.2 % (0.0-4.0); HEMOGLOBIN 11.6 g/dL (13.5-18.0); LYMPH# 0.9 (1.50-4.00); MEAN CELL VOLUME 108 fl (78-100); MEAN CORPUSCULAR HEMOGLOBIN 35 pg (27-31); MEAN CORPUSCULAR HGB CONC 32 g/dL (33-37); MONO # 0.8 (0.20-0.80); NEU # 4.6 (1.40-6.50); PLATELET COUNT 101 K/mm3 (130-400); RED BLOOD COUNT 3.35 M/mm3 (4.20-5.60); RED CELL DISTRIBUTION WIDTH 13.7 % (11.5-14.5); WHITE BLOOD COUNT 6.5 K/mm3 (4.8-10.8)
== END ==
LOC: LAB 14:12
PROVIDERS: Internal Medicine
DX: C90.00 Multiple myeloma not having achieved remission (principal)

== ENCOUNTER → 2019-12-14 | Outpatient (CLI) | payer MEDICARE ==
[2019-12-14 14:59] LABS: EOS # 0.2 (0.04-0.40); EOS % 3.1 % (0.0-4.0); HEMATOCRIT 37.9 % (42.0-52.0); HEMOGLOBIN 11.8 g/dL (13.5-18.0); LYMPH# 1.1 (1.50-4.00); MEAN CELL VOLUME 109 fl (78-100); MEAN CORPUSCULAR HEMOGLOBIN 34 pg (27-31); MEAN CORPUSCULAR HGB CONC 31 g/dL (33-37); MEAN PLATELET VOLUME 10.7 fl (7.4-10.4); MONO # 0.9 (0.20-0.80); NEU # 5.6 (1.40-6.50); PLATELET COUNT 93 K/mm3 (130-400); RED BLOOD COUNT 3.47 M/mm3 (4.20-5.60); WHITE BLOOD COUNT 7.8 K/mm3 (4.8-10.8)
[2019-12-14 15:19] LABS: ALBUMIN 3.9 g/dL (3.4-4.8); POTASSIUM 4.9 mmol/L (3.5-5.1)
[2019-12-14 15:20] LABS: CALCIUM 9.1 mg/dL (8.3-10.5)
[2019-12-14 15:21] LABS: TOTAL PROTEIN 7.3 g/dL (6.2-8.1)
[2019-12-14 15:23] LABS: TOTAL BILIRUBIN 0.6 mg/dL (0.2-1.2)
== END ==
LOC: LAB 14:41
PROVIDERS: Internal Medicine
DX: C90.00 Multiple myeloma not having achieved remission (principal)

== ENCOUNTER → 2019-12-29 | Outpatient (CLI) | payer MEDICARE ==
[2019-12-29 14:37] LABS: EOS # 0.2 (0.04-0.40); HEMATOCRIT 34.1 % (42.0-52.0); HEMOGLOBIN 10.7 g/dL (13.5-18.0); MEAN CELL VOLUME 109 fl (78-100); MEAN CORPUSCULAR HEMOGLOBIN 34 pg (27-31); MEAN CORPUSCULAR HGB CONC 31 g/dL (33-37); MEAN PLATELET VOLUME 10.8 fl (7.4-10.4); MONO # 0.5 (0.20-0.80); NEU # 4.3 (1.40-6.50); PLATELET COUNT 102 K/mm3 (130-400); RED BLOOD COUNT 3.13 M/mm3 (4.20-5.60); RED CELL DISTRIBUTION WIDTH 13.5 % (11.5-14.5); WHITE BLOOD COUNT 6.1 K/mm3 (4.8-10.8)
== END ==
LOC: LAB 14:26
PROVIDERS: Internal Medicine
DX: C90.00 Multiple myeloma not having achieved remission (principal)

== ENCOUNTER → 2020-01-11 | Outpatient (CLI) | payer MEDICARE ==
[2020-01-11 14:08] LABS: EOS # 0.2 (0.04-0.40); EOS % 3.4 % (0.0-4.0); HEMATOCRIT 36.3 % (42.0-52.0); HEMOGLOBIN 11.7 g/dL (13.5-18.0); MEAN CELL VOLUME 108 fl (78-100); MEAN CORPUSCULAR HEMOGLOBIN 35 pg (27-31); MEAN CORPUSCULAR HGB CONC 32 g/dL (33-37); MEAN PLATELET VOLUME 10.5 fl (7.4-10.4); MONO # 0.6 (0.20-0.80); NEU # 4.4 (1.40-6.50); PLATELET COUNT 103 K/mm3 (130-400); RED BLOOD COUNT 3.35 M/mm3 (4.20-5.60); RED CELL DISTRIBUTION WIDTH 13.6 % (11.5-14.5); WHITE BLOOD COUNT 6.2 K/mm3 (4.8-10.8)
[2020-01-11 14:28] LABS: POTASSIUM 4.8 mmol/L (3.5-5.1)
[2020-01-11 14:29] LABS: CALCIUM 8.9 mg/dL (8.3-10.5)
[2020-01-11 14:30] LABS: TOTAL PROTEIN 7.3 g/dL (6.2-8.1)
[2020-01-11 14:32] LABS: TOTAL BILIRUBIN 0.6 mg/dL (0.2-1.2)
== END ==
LOC: LAB 13:53
PROVIDERS: Internal Medicine Nephrology
DX: C90.00 Multiple myeloma not having achieved remission (principal)

== ENCOUNTER → 2020-01-25 | Outpatient (CLI) | payer MEDICARE ==
[2020-01-25 14:49] LABS: EOS # 0.2 (0.04-0.40); EOS % 2.2 % (0.0-4.0); HEMATOCRIT 36.9 % (42.0-52.0); HEMOGLOBIN 11.8 g/dL (13.5-18.0); LYMPH# 0.9 (1.50-4.00); MEAN CELL VOLUME 108 fl (78-100); MEAN CORPUSCULAR HEMOGLOBIN 35 pg (27-31); MEAN CORPUSCULAR HGB CONC 32 g/dL (33-37); MEAN PLATELET VOLUME 10.7 fl (7.4-10.4); MONO # 0.7 (0.20-0.80); NEU # 5.1 (1.40-6.50); PLATELET COUNT 97 K/mm3 (130-400); RED BLOOD COUNT 3.41 M/mm3 (4.20-5.60); RED CELL DISTRIBUTION WIDTH 13.7 % (11.5-14.5); WHITE BLOOD COUNT 6.9 K/mm3 (4.8-10.8)
[2020-01-26 02:53] LABS: IGM,SERUM 33 mg/dL (22-240); IMMUNOGLOBULIN A 162 mg/dL (101-645); IMMUNOGLOBULIN G 920 mg/dL (540-1822)
[2020-01-26 08:13] LABS: KAPPA LAMBDA RATIO 1.77 ratio (())
[2020-01-29 15:57] LABS: BETA GLOBULINS (PEP) 0.8 g/dL (0.7-1.2)
== END ==
LOC: LAB 14:24
PROVIDERS: Internal Medicine
DX: C90.00 Multiple myeloma not having achieved remission (principal)

== ENCOUNTER → 2020-02-08 | Outpatient (CLI) | payer MEDICARE ==
[2020-02-08 15:06] LABS: EOS # 0.1 (0.04-0.40); EOS % 1.9 % (0.0-4.0); HEMATOCRIT 37.4 % (42.0-52.0); HEMOGLOBIN 12.1 g/dL (13.5-18.0); MEAN CELL VOLUME 107 fl (78-100); MEAN CORPUSCULAR HEMOGLOBIN 35 pg (27-31); MEAN CORPUSCULAR HGB CONC 32 g/dL (33-37); MEAN PLATELET VOLUME 11.3 fl (7.4-10.4); MONO # 0.5 (0.20-0.80); NEU # 4.2 (1.40-6.50); PLATELET COUNT 78 K/mm3 (130-400); RED BLOOD COUNT 3.49 M/mm3 (4.20-5.60); RED CELL DISTRIBUTION WIDTH 13.7 % (11.5-14.5); WHITE BLOOD COUNT 5.8 K/mm3 (4.8-10.8)
== END ==
LOC: LAB 14:28
PROVIDERS: Internal Medicine
DX: C90.00 Multiple myeloma not having achieved remission (principal)

== ENCOUNTER → 2020-02-22 | Outpatient (CLI) | payer MEDICARE ==
[2020-02-22 11:03] LABS: EOS # 0.2 (0.04-0.40); EOS % 2.7 % (0.0-4.0); HEMATOCRIT 39.3 % (42.0-52.0); HEMOGLOBIN 12.7 g/dL (13.5-18.0); LYMPH# 1.2 (1.50-4.00); MEAN CELL VOLUME 108 fl (78-100); MEAN CORPUSCULAR HEMOGLOBIN 35 pg (27-31); MEAN CORPUSCULAR HGB CONC 32 g/dL (33-37); MEAN PLATELET VOLUME 10.6 fl (7.4-10.4); MONO # 0.7 (0.20-0.80); NEU # 5.2 (1.40-6.50); PLATELET COUNT 99 K/mm3 (130-400); RED BLOOD COUNT 3.65 M/mm3 (4.20-5.60); RED CELL DISTRIBUTION WIDTH 13.6 % (11.5-14.5); WHITE BLOOD COUNT 7.4 K/mm3 (4.8-10.8)
[2020-02-22 15:12] LABS: ALBUMIN 4.1 g/dL (3.4-4.8); POTASSIUM 4.3 mmol/L (3.5-5.1)
[2020-02-22 15:14] LABS: TOTAL PROTEIN 7.3 g/dL (6.2-8.1)
[2020-02-22 15:16] LABS: TOTAL BILIRUBIN 0.5 mg/dL (0.2-1.2)
== END ==
LOC: LAB 10:40
PROVIDERS: Internal Medicine
DX: C90.00 Multiple myeloma not having achieved remission (principal)

== ENCOUNTER → 2020-03-07 | Outpatient (CLI) | payer MEDICARE ==
[2020-03-07 13:47] LABS: EOS # 0.2 (0.04-0.40); HEMATOCRIT 40.8 % (42.0-52.0); HEMOGLOBIN 13.1 g/dL (13.5-18.0); LYMPH# 1.3 (1.50-4.00); MEAN CELL VOLUME 108 fl (78-100); MEAN CORPUSCULAR HEMOGLOBIN 35 pg (27-31); MEAN CORPUSCULAR HGB CONC 32 g/dL (33-37); MEAN PLATELET VOLUME 10.6 fl (7.4-10.4); MONO # 0.8 (0.20-0.80); NEU # 4.9 (1.40-6.50); PLATELET COUNT 95 K/mm3 (130-400); RED BLOOD COUNT 3.78 M/mm3 (4.20-5.60); RED CELL DISTRIBUTION WIDTH 13.6 % (11.5-14.5); WHITE BLOOD COUNT 7.3 K/mm3 (4.8-10.8)
== END ==
LOC: LAB 13:36
PROVIDERS: Internal Medicine
DX: C90.00 Multiple myeloma not having achieved remission (principal)

== ENCOUNTER → 2020-03-21 | Outpatient (CLI) | payer MEDICARE ==
[2020-03-21 12:50] LABS: EOS # 0.1 (0.04-0.40); EOS % 1.3 % (0.0-4.0); HEMATOCRIT 38.3 % (42.0-52.0); HEMOGLOBIN 12.3 g/dL (13.5-18.0); LYMPH# 0.9 (1.50-4.00); MEAN CELL VOLUME 108 fl (78-100); MEAN CORPUSCULAR HEMOGLOBIN 35 pg (27-31); MEAN CORPUSCULAR HGB CONC 32 g/dL (33-37); MEAN PLATELET VOLUME 9.5 fl (7.4-10.4); MONO # 0.6 (0.20-0.80); NEU # 5.1 (1.40-6.50); PLATELET COUNT 134 K/mm3 (130-400); RED BLOOD COUNT 3.56 M/mm3 (4.20-5.60); RED CELL DISTRIBUTION WIDTH 13.8 % (11.5-14.5); WHITE BLOOD COUNT 6.7 K/mm3 (4.8-10.8)
[2020-03-21 13:01] LABS: ALBUMIN 3.7 g/dL (3.4-4.8); POTASSIUM 4.5 mmol/L (3.5-5.1)
[2020-03-21 13:02] LABS: CALCIUM 8.6 mg/dL (8.3-10.5)
[2020-03-21 13:03] LABS: TOTAL PROTEIN 6.6 g/dL (6.2-8.1)
[2020-03-21 13:05] LABS: TOTAL BILIRUBIN 0.5 mg/dL (0.2-1.2)
== END ==
LOC: LAB 12:37
PROVIDERS: Internal Medicine
DX: C90.00 Multiple myeloma not having achieved remission (principal)

== ENCOUNTER → 2020-04-05 | Outpatient (CLI) | payer MEDICARE ==
[2020-04-05 09:36] LABS: EOS # 0.2 (0.04-0.40); EOS % 3.1 % (0.0-4.0); HEMATOCRIT 38.7 % (42.0-52.0); HEMOGLOBIN 12.2 g/dL (13.5-18.0); LYMPH# 1.6 (1.50-4.00); MEAN CELL VOLUME 109 fl (78-100); MEAN CORPUSCULAR HEMOGLOBIN 34 pg (27-31); MEAN CORPUSCULAR HGB CONC 32 g/dL (33-37); MEAN PLATELET VOLUME 10.6 fl (7.4-10.4); MONO # 0.9 (0.20-0.80); NEU # 5.1 (1.40-6.50); PLATELET COUNT 121 K/mm3 (130-400); RED BLOOD COUNT 3.56 M/mm3 (4.20-5.60); RED CELL DISTRIBUTION WIDTH 13.9 % (11.5-14.5); WHITE BLOOD COUNT 7.8 K/mm3 (4.8-10.8)
== END ==
LOC: LAB 09:20
PROVIDERS: Internal Medicine
DX: C90.00 Multiple myeloma not having achieved remission (principal)

== ENCOUNTER → 2020-04-18 | Outpatient (CLI) | payer MEDICARE ==
[2020-04-18 14:22] LABS: EOS # 0.2 (0.04-0.40); EOS % 2.1 % (0.0-4.0); HEMATOCRIT 40.7 % (42.0-52.0); LYMPH# 1.1 (1.50-4.00); MEAN CELL VOLUME 109 fl (78-100); MEAN CORPUSCULAR HEMOGLOBIN 35 pg (27-31); MEAN CORPUSCULAR HGB CONC 32 g/dL (33-37); MEAN PLATELET VOLUME 10.2 fl (7.4-10.4); MONO # 0.6 (0.20-0.80); NEU # 5.5 (1.40-6.50); PLATELET COUNT 126 K/mm3 (130-400); RED BLOOD COUNT 3.74 M/mm3 (4.20-5.60); WHITE BLOOD COUNT 7.5 K/mm3 (4.8-10.8)
[2020-04-18 14:26] LABS: POTASSIUM 4.4 mmol/L (3.5-5.1)
[2020-04-18 14:27] LABS: CALCIUM 9.1 mg/dL (8.3-10.5)
[2020-04-18 14:28] LABS: TOTAL PROTEIN 7.6 g/dL (6.2-8.1)
[2020-04-18 14:30] LABS: TOTAL BILIRUBIN 0.5 mg/dL (0.2-1.2)
[2020-04-19 09:45] LABS: KAPPA LAMBDA RATIO 1.65 ratio (())
== END ==
LOC: LAB 14:06
PROVIDERS: Internal Medicine Nephrology
DX: C90.00 Multiple myeloma not having achieved remission (principal)

== ENCOUNTER → 2020-05-01 | Outpatient (CLI) | payer MEDICARE ==
[2020-05-01 12:17] LABS: HEMATOCRIT 36.7 % (42.0-52.0); HEMOGLOBIN 11.7 g/dL (13.5-18.0); MEAN CELL VOLUME 109 fl (78-100); MEAN CORPUSCULAR HEMOGLOBIN 35 pg (27-31); MEAN CORPUSCULAR HGB CONC 32 g/dL (33-37); MEAN PLATELET VOLUME 10.3 fl (7.4-10.4); PLATELET COUNT 143 K/mm3 (130-400); RED BLOOD COUNT 3.37 M/mm3 (4.20-5.60); RED CELL DISTRIBUTION WIDTH 13.9 % (11.5-14.5); WHITE BLOOD COUNT 9.1 K/mm3 (4.8-10.8)
[2020-05-01 12:22] LABS: BAND 2 % (0-10); LYMPHOCYTE 11 % (20-51); MONOCYTE 5 % (3-10); NEUTROPHILS 80 % (42-75)
== END ==
LOC: LAB 11:49
PROVIDERS: Internal Medicine
DX: C90.00 Multiple myeloma not having achieved remission (principal)

== ENCOUNTER → 2020-05-16 | Outpatient (CLI) | payer MEDICARE ==
[2020-05-16 11:19] LABS: ALBUMIN 3.9 g/dL (3.4-4.8)
[2020-05-16 11:20] LABS: POTASSIUM 3.9 mmol/L (3.5-5.1)
[2020-05-16 11:21] LABS: CALCIUM 9.3 mg/dL (8.3-10.5)
[2020-05-16 11:22] LABS: TOTAL PROTEIN 7.2 g/dL (6.2-8.1)
[2020-05-16 11:24] LABS: TOTAL BILIRUBIN 0.6 mg/dL (0.2-1.2)
[2020-05-16 11:26] LABS: EOS # 0.2 (0.04-0.40); EOS % 2.5 % (0.0-4.0); HEMATOCRIT 38.3 % (42.0-52.0); HEMOGLOBIN 12.2 g/dL (13.5-18.0); MEAN CELL VOLUME 109 fl (78-100); MEAN CORPUSCULAR HEMOGLOBIN 35 pg (27-31); MEAN CORPUSCULAR HGB CONC 32 g/dL (33-37); MEAN PLATELET VOLUME 10.8 fl (7.4-10.4); MONO # 0.6 (0.20-0.80); NEU # 6.3 (1.40-6.50); PLATELET COUNT 117 K/mm3 (130-400); RED BLOOD COUNT 3.52 M/mm3 (4.20-5.60); RED CELL DISTRIBUTION WIDTH 13.9 % (11.5-14.5)
== END ==
LOC: LAB 10:43
PROVIDERS: Internal Medicine
DX: C90.00 Multiple myeloma not having achieved remission (principal)

== ENCOUNTER → 2020-05-29 | Outpatient (CLI) | payer MEDICARE ==
[2020-05-29 15:11] LABS: EOS # 0.2 (0.04-0.40); EOS % 4.1 % (0.0-4.0); HEMATOCRIT 35.9 % (42.0-52.0); HEMOGLOBIN 11.1 g/dL (13.5-18.0); LYMPH# 1.1 (1.50-4.00); MEAN CORPUSCULAR HEMOGLOBIN 34 pg (27-31); MEAN CORPUSCULAR HGB CONC 31 g/dL (33-37); MEAN PLATELET VOLUME 9.7 fl (7.4-10.4); MONO # 0.6 (0.20-0.80); NEU # 3.4 (1.40-6.50); PLATELET COUNT 92 K/mm3 (130-400); RED BLOOD COUNT 3.23 M/mm3 (4.20-5.60); RED CELL DISTRIBUTION WIDTH 13.6 % (11.5-14.5); WHITE BLOOD COUNT 5.4 K/mm3 (4.8-10.8)
[2020-05-29 15:15] LABS: MEAN CELL VOLUME 111 fl (78-100)
== END ==
LOC: LAB 14:53
PROVIDERS: Internal Medicine Nephrology
DX: C90.00 Multiple myeloma not having achieved remission (principal)

== ENCOUNTER → 2020-06-13 | Outpatient (CLI) | payer MEDICARE ==
[2020-06-13 11:15] LABS: EOS # 0.2 (0.04-0.40); EOS % 3.6 % (0.0-4.0); HEMATOCRIT 37.3 % (42.0-52.0); HEMOGLOBIN 11.6 g/dL (13.5-18.0); MEAN CELL VOLUME 109 fl (78-100); MEAN CORPUSCULAR HEMOGLOBIN 34 pg (27-31); MEAN CORPUSCULAR HGB CONC 31 g/dL (33-37); MEAN PLATELET VOLUME 10.3 fl (7.4-10.4); MONO # 0.4 (0.20-0.80); NEU # 4.7 (1.40-6.50); PLATELET COUNT 91 K/mm3 (130-400); RED BLOOD COUNT 3.41 M/mm3 (4.20-5.60); RED CELL DISTRIBUTION WIDTH 13.2 % (11.5-14.5); WHITE BLOOD COUNT 6.4 K/mm3 (4.8-10.8)
[2020-06-13 11:26] LABS: CALCIUM 9.5 mg/dL (8.3-10.5)
[2020-06-13 11:27] LABS: TOTAL PROTEIN 7.1 g/dL (6.2-8.1)
[2020-06-13 11:29] LABS: TOTAL BILIRUBIN 0.6 mg/dL (0.2-1.2)
== END ==
LOC: LAB 10:58
PROVIDERS: Internal Medicine
DX: C90.00 Multiple myeloma not having achieved remission (principal)

== ENCOUNTER → 2020-06-27 | Outpatient (CLI) | payer MEDICARE ==
[2020-06-27 12:21] LABS: EOS # 0.2 (0.04-0.40); HEMATOCRIT 36.3 % (42.0-52.0); HEMOGLOBIN 11.4 g/dL (13.5-18.0); LYMPH# 0.9 (1.50-4.00); MEAN CELL VOLUME 110 fl (78-100); MEAN CORPUSCULAR HEMOGLOBIN 34 pg (27-31); MEAN CORPUSCULAR HGB CONC 31 g/dL (33-37); MEAN PLATELET VOLUME 10.8 fl (7.4-10.4); MONO # 0.5 (0.20-0.80); NEU # 4.6 (1.40-6.50); PLATELET COUNT 105 K/mm3 (130-400); RED BLOOD COUNT 3.31 M/mm3 (4.20-5.60); RED CELL DISTRIBUTION WIDTH 13.4 % (11.5-14.5); WHITE BLOOD COUNT 6.2 K/mm3 (4.8-10.8)
== END ==
LOC: LAB 11:40
PROVIDERS: Internal Medicine
DX: C90.00 Multiple myeloma not having achieved remission (principal)

== ENCOUNTER → 2020-07-12 | Outpatient (CLI) | payer MEDICARE ==
[2020-07-12 12:02] LABS: EOS # 0.2 (0.04-0.40); EOS % 2.9 % (0.0-4.0); HEMOGLOBIN 10.4 g/dL (13.5-18.0); MEAN CORPUSCULAR HEMOGLOBIN 34 pg (27-31); MEAN CORPUSCULAR HGB CONC 31 g/dL (33-37); MEAN PLATELET VOLUME 10.3 fl (7.4-10.4); MONO # 0.5 (0.20-0.80); NEU # 4.1 (1.40-6.50); PLATELET COUNT 99 K/mm3 (130-400); RED BLOOD COUNT 3.04 M/mm3 (4.20-5.60); RED CELL DISTRIBUTION WIDTH 13.6 % (11.5-14.5); WHITE BLOOD COUNT 5.8 K/mm3 (4.8-10.8)
[2020-07-12 12:05] LABS: MEAN CELL VOLUME 112 fl (78-100)
[2020-07-12 12:09] LABS: ALBUMIN 3.5 g/dL (3.4-4.8)
[2020-07-12 12:10] LABS: POTASSIUM 4.9 mmol/L (3.5-5.1)
[2020-07-12 12:11] LABS: CALCIUM 8.7 mg/dL (8.3-10.5)
[2020-07-12 12:12] LABS: TOTAL PROTEIN 6.2 g/dL (6.2-8.1)
[2020-07-12 12:14] LABS: TOTAL BILIRUBIN 0.6 mg/dL (0.2-1.2)
[2020-07-15 08:25] LABS: KAPPA LAMBDA RATIO 1.75 ratio (())
== END ==
LOC: LAB 11:38
PROVIDERS: Internal Medicine
DX: C90.00 Multiple myeloma not having achieved remission (principal)

== ENCOUNTER → 2020-07-25 | Outpatient (CLI) | payer MEDICARE ==
[2020-07-25 16:10] LABS: EOS # 0.1 (0.04-0.40); EOS % 2.2 % (0.0-4.0); HEMATOCRIT 33.6 % (42.0-52.0); HEMOGLOBIN 10.4 g/dL (13.5-18.0); LYMPH# 1.1 (1.50-4.00); MEAN CELL VOLUME 110 fl (78-100); MEAN CORPUSCULAR HEMOGLOBIN 34 pg (27-31); MEAN CORPUSCULAR HGB CONC 31 g/dL (33-37); MEAN PLATELET VOLUME 9.7 fl (7.4-10.4); MONO # 0.6 (0.20-0.80); PLATELET COUNT 102 K/mm3 (130-400); RED BLOOD COUNT 3.06 M/mm3 (4.20-5.60); RED CELL DISTRIBUTION WIDTH 13.9 % (11.5-14.5); WHITE BLOOD COUNT 5.9 K/mm3 (4.8-10.8)
== END ==
LOC: LAB 16:01
PROVIDERS: Internal Medicine Nephrology
DX: C90.00 Multiple myeloma not having achieved remission (principal)

== ENCOUNTER → 2020-08-12 | Outpatient (CLI) | payer MEDICARE ==
[~2020-08-12] MED LIST changes: +CEPHALEXIN500 M1 PO
[2020-08-12 16:06] LABS: EOS # 0.2 (0.04-0.40); EOS % 4.1 % (0.0-4.0); HEMATOCRIT 32.9 % (42.0-52.0); HEMOGLOBIN 10.2 g/dL (13.5-18.0); LYMPH# 1.1 (1.50-4.00); MEAN CELL VOLUME 109 fl (78-100); MEAN CORPUSCULAR HEMOGLOBIN 34 pg (27-31); MEAN CORPUSCULAR HGB CONC 31 g/dL (33-37); MEAN PLATELET VOLUME 9.6 fl (7.4-10.4); MONO # 0.4 (0.20-0.80); NEU # 3.9 (1.40-6.50); PLATELET COUNT 108 K/mm3 (130-400); RED BLOOD COUNT 3.03 M/mm3 (4.20-5.60); RED CELL DISTRIBUTION WIDTH 13.7 % (11.5-14.5); WHITE BLOOD COUNT 5.7 K/mm3 (4.8-10.8)
[2020-08-12 16:30] LABS: ALBUMIN 3.5 g/dL (3.4-4.8)
[2020-08-12 16:31] LABS: POTASSIUM 4.2 mmol/L (3.5-5.1)
[2020-08-12 16:32] LABS: CALCIUM 8.6 mg/dL (8.3-10.5)
[2020-08-12 16:33] LABS: TOTAL PROTEIN 6.1 g/dL (6.2-8.1)
[2020-08-12 16:35] LABS: TOTAL BILIRUBIN 0.5 mg/dL (0.2-1.2)
== END ==
LOC: LAB 15:56
PROVIDERS: Internal Medicine Nephrology
DX: C90.00 Multiple myeloma not having achieved remission (principal)

== ENCOUNTER → 2020-08-22 | Outpatient (CLI) | payer MEDICARE ==
[2020-08-22 11:57] LABS: EOS # 0.3 (0.04-0.40); EOS % 4.9 % (0.0-4.0); HEMOGLOBIN 10.9 g/dL (13.5-18.0); LYMPH# 0.9 (1.50-4.00); MEAN CELL VOLUME 110 fl (78-100); MEAN CORPUSCULAR HEMOGLOBIN 34 pg (27-31); MEAN CORPUSCULAR HGB CONC 31 g/dL (33-37); MEAN PLATELET VOLUME 10.8 fl (7.4-10.4); MONO # 0.5 (0.20-0.80); NEU # 4.3 (1.40-6.50); PLATELET COUNT 96 K/mm3 (130-400); RED BLOOD COUNT 3.19 M/mm3 (4.20-5.60); RED CELL DISTRIBUTION WIDTH 13.5 % (11.5-14.5); WHITE BLOOD COUNT 5.9 K/mm3 (4.8-10.8)
== END ==
LOC: LAB 11:39
PROVIDERS: Internal Medicine
DX: C90.00 Multiple myeloma not having achieved remission (principal)

== ENCOUNTER → 2020-09-05 | Outpatient (CLI) | payer MEDICARE ==
[2020-09-05 11:28] LABS: HEMATOCRIT 36.3 % (42.0-52.0); HEMOGLOBIN 11.3 g/dL (13.5-18.0); MEAN CELL VOLUME 109 fl (78-100); MEAN CORPUSCULAR HEMOGLOBIN 34 pg (27-31); MEAN CORPUSCULAR HGB CONC 31 g/dL (33-37); MEAN PLATELET VOLUME 10.6 fl (7.4-10.4); PLATELET COUNT 120 K/mm3 (130-400); RED BLOOD COUNT 3.34 M/mm3 (4.20-5.60); RED CELL DISTRIBUTION WIDTH 13.5 % (11.5-14.5); WHITE BLOOD COUNT 7.8 K/mm3 (4.8-10.8)
[2020-09-05 11:37] LABS: ALBUMIN 4.1 g/dL (3.4-4.8); POTASSIUM 4.3 mmol/L (3.5-5.1)
[2020-09-05 11:38] LABS: CALCIUM 9.2 mg/dL (8.3-10.5)
[2020-09-05 11:40] LABS: TOTAL PROTEIN 7.2 g/dL (6.2-8.1)
[2020-09-05 11:41] LABS: TOTAL BILIRUBIN 0.5 mg/dL (0.2-1.2)
[2020-09-05 12:04] LABS: LYMPHOCYTE 12 % (20-51); NEUTROPHILS 75 % (42-75)
[2020-09-05 12:05] LABS: MONOCYTE 11 % (3-10); TEAR DROP CELLS 1+
== END ==
LOC: LAB 11:14
PROVIDERS: Internal Medicine
DX: C90.00 Multiple myeloma not having achieved remission (principal)

== ENCOUNTER → 2020-09-06 | Outpatient (CLI) | payer MEDICARE | LOC: RAD 08:09 | DX: R07.81 Pleurodynia (principal); Z87.828 Personal history of other (healed) physical injury and trauma ==

== ENCOUNTER → 2020-09-19 | Outpatient (CLI) | payer MEDICARE ==
[2020-09-19 11:11] LABS: EOS # 0.4 (0.04-0.40); HEMATOCRIT 34.4 % (42.0-52.0); HEMOGLOBIN 10.7 g/dL (13.5-18.0); LYMPH# 1.2 (1.50-4.00); MEAN CELL VOLUME 109 fl (78-100); MEAN CORPUSCULAR HEMOGLOBIN 34 pg (27-31); MEAN CORPUSCULAR HGB CONC 31 g/dL (33-37); MEAN PLATELET VOLUME 10.5 fl (7.4-10.4); MONO # 0.6 (0.20-0.80); NEU # 4.6 (1.40-6.50); PLATELET COUNT 106 K/mm3 (130-400); RED BLOOD COUNT 3.15 M/mm3 (4.20-5.60); RED CELL DISTRIBUTION WIDTH 13.7 % (11.5-14.5); WHITE BLOOD COUNT 6.8 K/mm3 (4.8-10.8)
[2020-09-19 11:24] LABS: EOS % 5.5 % (0.0-4.0)
== END ==
LOC: LAB 10:55
PROVIDERS: Internal Medicine
DX: C90.00 Multiple myeloma not having achieved remission (principal); D64.81 Anemia due to antineoplastic chemotherapy

== ENCOUNTER → 2020-10-03 | Outpatient (CLI) | payer MEDICARE ==
[2020-10-03 11:14] LABS: ALBUMIN 3.5 g/dL (3.4-4.8)
[2020-10-03 11:15] LABS: POTASSIUM 4.2 mmol/L (3.5-5.1)
[2020-10-03 11:16] LABS: CALCIUM 9.1 mg/dL (8.3-10.5)
[2020-10-03 11:17] LABS: TOTAL PROTEIN 6.4 g/dL (6.2-8.1)
[2020-10-03 11:19] LABS: TOTAL BILIRUBIN 0.4 mg/dL (0.2-1.2)
[2020-10-03 11:20] LABS: EOS # 0.3 (0.04-0.40); HEMATOCRIT 32.2 % (42.0-52.0); HEMOGLOBIN 10.2 g/dL (13.5-18.0); MEAN CELL VOLUME 107 fl (78-100); MEAN CORPUSCULAR HEMOGLOBIN 34 pg (27-31); MEAN CORPUSCULAR HGB CONC 32 g/dL (33-37); MEAN PLATELET VOLUME 11.2 fl (7.4-10.4); MONO # 0.7 (0.20-0.80); NEU # 3.6 (1.40-6.50); PLATELET COUNT 95 K/mm3 (130-400); RED BLOOD COUNT 3.02 M/mm3 (4.20-5.60); RED CELL DISTRIBUTION WIDTH 13.8 % (11.5-14.5); WHITE BLOOD COUNT 5.6 K/mm3 (4.8-10.8)
[2020-10-03 23:10] LABS: IGM,SERUM 28 mg/dL (22-240); IMMUNOGLOBULIN A 146 mg/dL (101-645); IMMUNOGLOBULIN G 842 mg/dL (540-1822)
[2020-10-04 07:48] LABS: KAPPA LAMBDA RATIO 1.45 ratio (())
[2020-10-08 17:29] LABS: A/G RATIO (PEP) 0.97 (()); BETA GLOBULINS (PEP) 0.8 g/dL (0.7-1.2)
== END ==
LOC: LAB 10:34
PROVIDERS: Internal Medicine
DX: C90.00 Multiple myeloma not having achieved remission (principal); D64.81 Anemia due to antineoplastic chemotherapy

== ENCOUNTER → 2020-10-17 | Outpatient (CLI) | payer MEDICARE ==
[2020-10-17 10:45] LABS: BASO # 0.01 (0.02-0.10); EOS # 0.19 (0.04-0.40); EOS % 3.1 % (0.0-4.0); HEMATOCRIT 33.8 % (42.0-52.0); HEMOGLOBIN 10.8 g/dL (13.5-18.0); LYMPH# 0.95 (1.50-4.00); MEAN CELL VOLUME 108 fl (78-100); MEAN CORPUSCULAR HEMOGLOBIN 34 pg (27-31); MEAN CORPUSCULAR HGB CONC 32 g/dL (33-37); MEAN PLATELET VOLUME 10.5 fl (7.4-10.4); MONO # 0.57 (0.20-0.80); NEU # 4.39 (1.40-6.50); PLATELET COUNT 104 K/mm3 (130-400); RED BLOOD COUNT 3.14 M/mm3 (4.20-5.60); RED CELL DISTRIBUTION WIDTH 13.6 % (11.5-14.5); WHITE BLOOD COUNT 6.1 K/mm3 (4.8-10.8)
[2020-10-17 10:54] LABS: ALBUMIN 3.8 g/dL (3.4-4.8)
[2020-10-17 10:55] LABS: POTASSIUM 4.5 mmol/L (3.5-5.1)
[2020-10-17 10:56] LABS: CALCIUM 9.2 mg/dL (8.3-10.5)
[2020-10-17 10:57] LABS: TOTAL PROTEIN 6.9 g/dL (6.2-8.1)
[2020-10-17 10:59] LABS: TOTAL BILIRUBIN 0.4 mg/dL (0.2-1.2)
== END ==
LOC: LAB 10:33
PROVIDERS: Internal Medicine Nephrology
DX: C90.00 Multiple myeloma not having achieved remission (principal)

== ENCOUNTER → 2020-11-01 | Outpatient (CLI) | payer MEDICARE ==
[2020-11-01 07:08] LABS: ALBUMIN 3.6 g/dL (3.4-4.8)
[2020-11-01 07:09] LABS: POTASSIUM 4.8 mmol/L (3.5-5.1)
[2020-11-01 07:10] LABS: CALCIUM 8.7 mg/dL (8.3-10.5)
[2020-11-01 07:11] LABS: BASO # 0.01 (0.02-0.10); EOS % 2.8 % (0.0-4.0); HEMATOCRIT 32.3 % (42.0-52.0); HEMOGLOBIN 10.5 g/dL (13.5-18.0); LYMPH# 1.28 (1.50-4.00); MEAN CELL VOLUME 107 fl (78-100); MEAN CORPUSCULAR HEMOGLOBIN 35 pg (27-31); MEAN CORPUSCULAR HGB CONC 33 g/dL (33-37); MEAN PLATELET VOLUME 11.1 fl (7.4-10.4); MONO # 0.65 (0.20-0.80); NEU # 4.96 (1.40-6.50); PLATELET COUNT 91 K/mm3 (130-400); RED BLOOD COUNT 3.03 M/mm3 (4.20-5.60); RED CELL DISTRIBUTION WIDTH 13.5 % (11.5-14.5); TOTAL PROTEIN 6.4 g/dL (6.2-8.1); WHITE BLOOD COUNT 7.1 K/mm3 (4.8-10.8)
[2020-11-01 07:13] LABS: TOTAL BILIRUBIN 0.5 mg/dL (0.2-1.2)
== END ==
LOC: LAB 06:47
PROVIDERS: Internal Medicine
DX: C90.00 Multiple myeloma not having achieved remission (principal)

== ENCOUNTER → 2020-11-19 | Outpatient (CLI) | payer MEDICARE ==
[2020-11-19 10:24] LABS: BASO # 0.02 (0.02-0.10); EOS # 0.23 (0.04-0.40); EOS % 3.3 % (0.0-4.0); HEMATOCRIT 33.4 % (42.0-52.0); HEMOGLOBIN 10.7 g/dL (13.5-18.0); LYMPH# 0.98 (1.50-4.00); MEAN CELL VOLUME 107 fl (78-100); MEAN CORPUSCULAR HEMOGLOBIN 34 pg (27-31); MEAN CORPUSCULAR HGB CONC 32 g/dL (33-37); MEAN PLATELET VOLUME 10.4 fl (7.4-10.4); MONO # 0.68 (0.20-0.80); NEU # 5.04 (1.40-6.50); PLATELET COUNT 107 K/mm3 (130-400); RED BLOOD COUNT 3.13 M/mm3 (4.20-5.60); RED CELL DISTRIBUTION WIDTH 13.8 % (11.5-14.5)
== END ==
LOC: LAB 10:07
PROVIDERS: Internal Medicine
DX: C90.00 Multiple myeloma not having achieved remission (principal)

== ENCOUNTER → 2020-11-29 | Outpatient (CLI) | payer MEDICARE ==
[2020-11-29 11:51] LABS: BASO # 0.02 (0.02-0.10); EOS % 2.8 % (0.0-4.0); HEMATOCRIT 34.1 % (42.0-52.0); HEMOGLOBIN 10.8 g/dL (13.5-18.0); LYMPH# 1.13 (1.50-4.00); MEAN CELL VOLUME 107 fl (78-100); MEAN CORPUSCULAR HEMOGLOBIN 34 pg (27-31); MEAN CORPUSCULAR HGB CONC 32 g/dL (33-37); MEAN PLATELET VOLUME 10.4 fl (7.4-10.4); MONO # 0.67 (0.20-0.80); NEU # 5.08 (1.40-6.50); PLATELET COUNT 109 K/mm3 (130-400); RED BLOOD COUNT 3.18 M/mm3 (4.20-5.60); RED CELL DISTRIBUTION WIDTH 13.8 % (11.5-14.5); WHITE BLOOD COUNT 7.1 K/mm3 (4.8-10.8)
[2020-11-29 11:57] LABS: ALBUMIN 3.6 g/dL (3.4-4.8); POTASSIUM 5.4 mmol/L (3.5-5.1)
[2020-11-29 11:58] LABS: CALCIUM 8.9 mg/dL (8.3-10.5)
[2020-11-29 11:59] LABS: TOTAL PROTEIN 6.6 g/dL (6.2-8.1)
[2020-11-29 12:01] LABS: TOTAL BILIRUBIN 0.5 mg/dL (0.2-1.2)
== END ==
LOC: LAB 11:35
PROVIDERS: Internal Medicine
DX: C90.00 Multiple myeloma not having achieved remission (principal)

== ENCOUNTER 2020-11-30 11:43 | Emergency (ER) | payer MEDICARE ==
[~2020-11-30 11:43] MED LIST changes: -CEPHALEXIN500 M1 PO
[2020-11-30] MEDS ORDERED: CALCITRIOL0.25 MCG PO (12:01)
[2020-11-30] MEDS ORDERED: CEPHALEXIN500 M1 PO (12:03)
[2020-11-30 12:46] LABS: BASO # 0.02 (0.02-0.10); EOS # 0.17 (0.04-0.40); EOS % 2.6 % (0.0-4.0); HEMATOCRIT 32.6 % (42.0-52.0); HEMOGLOBIN 10.4 g/dL (13.5-18.0); LYMPH# 0.77 (1.50-4.00); MEAN CELL VOLUME 108 fl (78-100); MEAN CORPUSCULAR HEMOGLOBIN 35 pg (27-31); MEAN CORPUSCULAR HGB CONC 32 g/dL (33-37); MEAN PLATELET VOLUME 10.4 fl (7.4-10.4); MONO # 0.61 (0.20-0.80); NEU # 5.05 (1.40-6.50); PLATELET COUNT 105 K/mm3 (130-400); RED BLOOD COUNT 3.01 M/mm3 (4.20-5.60); RED CELL DISTRIBUTION WIDTH 13.7 % (11.5-14.5); WHITE BLOOD COUNT 6.6 K/mm3 (4.8-10.8)
[2020-11-30 12:57] LABS: ALBUMIN 3.5 g/dL (3.4-4.8)
[2020-11-30 12:58] LABS: POTASSIUM 4.9 mmol/L (3.5-5.1)
[2020-11-30 12:59] LABS: CALCIUM 8.8 mg/dL (8.3-10.5)
[2020-11-30 13:00] LABS: TOTAL PROTEIN 6.5 g/dL (6.2-8.1)
[2020-11-30 13:02] LABS: TOTAL BILIRUBIN 0.5 mg/dL (0.2-1.2)
[2020-11-30 14:36] VITALS: BP 135/74
== END 2020-11-30 14:14 | disposition home or self-care (01) ==
LOC: ED 11:43
PROVIDERS: Family Medicine
DX: I12.0 Hypertensive chronic kidney disease with stage 5 chronic kidney disease or end stage renal disease (principal); N18.6 End stage renal disease; R07.89 Other chest pain; R10.12 Left upper quadrant pain; K59.00 Constipation, unspecified; C90.00 Multiple myeloma not having achieved remission; I25.10 Atherosclerotic heart disease of native coronary artery without angina pectoris; N40.0 Benign prostatic hyperplasia without lower urinary tract symptoms; F31.9 Bipolar disorder, unspecified; E78.5 Hyperlipidemia, unspecified; Z99.2 Dependence on renal dialysis; Z79.899 Other long term (current) drug therapy; W19.XXXA Unspecified fall, initial encounter

== ENCOUNTER → 2020-12-12 | Outpatient (CLI) | payer MEDICARE ==
[~2020-12-12] MED LIST changes: +CEPHALEXIN500 M1 PO
[2020-12-12 10:57] LABS: BASO # 0.01 (0.02-0.10); EOS # 0.21 (0.04-0.40); HEMATOCRIT 32.6 % (42.0-52.0); HEMOGLOBIN 10.4 g/dL (13.5-18.0); LYMPH# 0.87 (1.50-4.00); MEAN CELL VOLUME 107 fl (78-100); MEAN CORPUSCULAR HEMOGLOBIN 34 pg (27-31); MEAN CORPUSCULAR HGB CONC 32 g/dL (33-37); MEAN PLATELET VOLUME 10.3 fl (7.4-10.4); MONO # 0.66 (0.20-0.80); NEU # 5.25 (1.40-6.50); PLATELET COUNT 106 K/mm3 (130-400); RED BLOOD COUNT 3.04 M/mm3 (4.20-5.60); RED CELL DISTRIBUTION WIDTH 13.6 % (11.5-14.5)
== END ==
LOC: LAB 10:43
PROVIDERS: Internal Medicine
DX: C90.00 Multiple myeloma not having achieved remission (principal)

== ENCOUNTER → 2020-12-26 | Outpatient (CLI) | payer MEDICARE ==
[2020-12-26 15:06] LABS: BASO # 0.01 (0.02-0.10); EOS # 0.19 (0.04-0.40); EOS % 3.5 % (0.0-4.0); HEMATOCRIT 31.9 % (42.0-52.0); HEMOGLOBIN 10.3 g/dL (13.5-18.0); LYMPH# 0.92 (1.50-4.00); MEAN CELL VOLUME 107 fl (78-100); MEAN CORPUSCULAR HEMOGLOBIN 35 pg (27-31); MEAN CORPUSCULAR HGB CONC 32 g/dL (33-37); MEAN PLATELET VOLUME 10.1 fl (7.4-10.4); NEU # 3.76 (1.40-6.50); PLATELET COUNT 111 K/mm3 (130-400); RED BLOOD COUNT 2.98 M/mm3 (4.20-5.60); RED CELL DISTRIBUTION WIDTH 13.5 % (11.5-14.5); WHITE BLOOD COUNT 5.4 K/mm3 (4.8-10.8)
[2020-12-26 15:22] LABS: ALBUMIN 3.6 g/dL (3.4-4.8); POTASSIUM 4.4 mmol/L (3.5-5.1)
[2020-12-26 15:23] LABS: CALCIUM 9.1 mg/dL (8.3-10.5)
[2020-12-26 15:24] LABS: TOTAL PROTEIN 6.8 g/dL (6.2-8.1)
[2020-12-26 15:26] LABS: TOTAL BILIRUBIN 0.5 mg/dL (0.2-1.2)
[2020-12-26 21:20] LABS: IGM,SERUM 22 mg/dL (22-240); IMMUNOGLOBULIN A 161 mg/dL (101-645); IMMUNOGLOBULIN G 988 mg/dL (540-1822)
[2020-12-27 07:22] LABS: KAPPA LAMBDA RATIO 1.49 ratio (())
[2020-12-30 19:50] LABS: A/G RATIO (PEP) 0.94 (()); BETA GLOBULINS (PEP) 0.8 g/dL (0.7-1.2)
== END ==
LOC: LAB 14:43
PROVIDERS: Internal Medicine
DX: C90.00 Multiple myeloma not having achieved remission (principal)

== ENCOUNTER → 2021-01-23 | Outpatient (CLI) | payer MEDICARE ==
[~2021-01-23] MED LIST changes: +CALCITRIOL0.5 MCG PO; -FLOMAX 0.40.4 MG/CAP PO; +FLOMAX0.4 MG PO; +NOVAPLUS DE200 MG/ML IM; +ONDANSETRON ODT8 MG PO; +PHARMASSURE ZIN50 MG PO; +QUETIAPINE FUMA25 M3 PO; -VITAMIN B-121000 MC1 SL; +VITAMIN B12 1541 TAB PO; +WELLBUTRIN SR200 M1 PO; -WELLBUTRIN SR200 MG PO
[2021-01-23 16:30] LABS: BASO # 0.01 (0.02-0.10); EOS # 0.17 (0.04-0.40); EOS % 2.9 % (0.0-4.0); HEMATOCRIT 33.2 % (42.0-52.0); HEMOGLOBIN 10.3 g/dL (13.5-18.0); LYMPH# 0.91 (1.50-4.00); MEAN CELL VOLUME 108 fl (78-100); MEAN CORPUSCULAR HEMOGLOBIN 34 pg (27-31); MEAN CORPUSCULAR HGB CONC 31 g/dL (33-37); MEAN PLATELET VOLUME 11.2 fl (7.4-10.4); NEU # 4.19 (1.40-6.50); PLATELET COUNT 109 K/mm3 (130-400); RED BLOOD COUNT 3.07 M/mm3 (4.20-5.60); RED CELL DISTRIBUTION WIDTH 13.1 % (11.5-14.5); WHITE BLOOD COUNT 5.9 K/mm3 (4.8-10.8)
[2021-01-23 16:45] LABS: ALBUMIN 3.5 g/dL (3.4-4.8); POTASSIUM 5.1 mmol/L (3.5-5.1)
[2021-01-23 16:46] LABS: CALCIUM 9.5 mg/dL (8.3-10.5)
[2021-01-23 16:47] LABS: TOTAL PROTEIN 6.7 g/dL (6.2-8.1)
[2021-01-23 16:49] LABS: TOTAL BILIRUBIN 0.4 mg/dL (0.2-1.2)
== END ==
LOC: LAB 16:06
PROVIDERS: Internal Medicine
DX: C90.00 Multiple myeloma not having achieved remission (principal); E85.81 Light chain (AL) amyloidosis

== ENCOUNTER → 2021-02-06 | Outpatient (CLI) | payer MEDICARE ==
[~2021-02-06] MED LIST changes: +[UNRECOGNIZED DRUG - CODE] IV; +[UNRECOGNIZED DRUG - OTHER] IV
[2021-02-06 12:00] LABS: BASO # 0.02 (0.02-0.10); EOS # 0.27 (0.04-0.40); EOS % 4.5 % (0.0-4.0); HEMATOCRIT 34.9 % (42.0-52.0); HEMOGLOBIN 10.9 g/dL (13.5-18.0); LYMPH# 0.95 (1.50-4.00); MEAN CELL VOLUME 108 fl (78-100); MEAN CORPUSCULAR HEMOGLOBIN 34 pg (27-31); MEAN CORPUSCULAR HGB CONC 31 g/dL (33-37); MEAN PLATELET VOLUME 10.1 fl (7.4-10.4); MONO # 0.56 (0.20-0.80); NEU # 4.24 (1.40-6.50); PLATELET COUNT 117 K/mm3 (130-400); RED BLOOD COUNT 3.24 M/mm3 (4.20-5.60); RED CELL DISTRIBUTION WIDTH 13.1 % (11.5-14.5); WHITE BLOOD COUNT 6.1 K/mm3 (4.8-10.8)
[2021-02-06 12:15] LABS: ALBUMIN 3.6 g/dL (3.4-4.8); POTASSIUM 4.3 mmol/L (3.5-5.1)
[2021-02-06 12:16] LABS: CALCIUM 9.7 mg/dL (8.3-10.5)
[2021-02-06 12:18] LABS: TOTAL PROTEIN 6.9 g/dL (6.2-8.1)
[2021-02-06 12:19] LABS: TOTAL BILIRUBIN 0.5 mg/dL (0.2-1.2)
== END ==
LOC: LAB 11:47
PROVIDERS: Internal Medicine
DX: C90.00 Multiple myeloma not having achieved remission (principal)

== ENCOUNTER → 2021-02-18 | Outpatient (CLI) | payer MEDICARE ==
[2021-02-21 03:46] LABS: TESTOSTERONE 16 ng/dL (221-716)
== END ==
LOC: LAB 16:46
PROVIDERS: Internal Medicine
DX: Z12.5 Encounter for screening for malignant neoplasm of prostate (principal); I25.10 Atherosclerotic heart disease of native coronary artery without angina pectoris; E29.1 Testicular hypofunction; K90.9 Intestinal malabsorption, unspecified

== ENCOUNTER → 2021-02-20 | Outpatient (CLI) | payer MEDICARE ==
[2021-02-20 11:06] LABS: BASO # 0.01 (0.02-0.10); EOS # 0.22 (0.04-0.40); EOS % 3.4 % (0.0-4.0); HEMOGLOBIN 10.5 g/dL (13.5-18.0); LYMPH# 0.84 (1.50-4.00); MEAN CELL VOLUME 108 fl (78-100); MEAN CORPUSCULAR HEMOGLOBIN 33 pg (27-31); MEAN CORPUSCULAR HGB CONC 31 g/dL (33-37); MONO # 0.65 (0.20-0.80); NEU # 4.68 (1.40-6.50); PLATELET COUNT 101 K/mm3 (130-400); RED BLOOD COUNT 3.14 M/mm3 (4.20-5.60); RED CELL DISTRIBUTION WIDTH 13.3 % (11.5-14.5); WHITE BLOOD COUNT 6.4 K/mm3 (4.8-10.8)
[2021-02-20 11:16] LABS: ALBUMIN 3.5 g/dL (3.4-4.8); POTASSIUM 4.4 mmol/L (3.5-5.1)
[2021-02-20 11:17] LABS: CALCIUM 9.6 mg/dL (8.3-10.5)
[2021-02-20 11:18] LABS: TOTAL PROTEIN 6.7 g/dL (6.2-8.1)
[2021-02-20 11:20] LABS: TOTAL BILIRUBIN 0.5 mg/dL (0.2-1.2)
== END ==
LOC: LAB 10:39
PROVIDERS: Internal Medicine Nephrology
DX: C90.00 Multiple myeloma not having achieved remission (principal); E85.81 Light chain (AL) amyloidosis

== ENCOUNTER → 2021-03-06 | Outpatient (CLI) | payer MEDICARE ==
[2021-03-06 13:12] LABS: HEMATOCRIT 33.5 % (42.0-52.0); HEMOGLOBIN 10.4 g/dL (13.5-18.0); MEAN CELL VOLUME 108 fl (78-100); MEAN CORPUSCULAR HEMOGLOBIN 33 pg (27-31); MEAN CORPUSCULAR HGB CONC 31 g/dL (33-37); MEAN PLATELET VOLUME 10.1 fl (7.4-10.4); PLATELET COUNT 94 K/mm3 (130-400); RED BLOOD COUNT 3.11 M/mm3 (4.20-5.60); RED CELL DISTRIBUTION WIDTH 13.3 % (11.5-14.5); WHITE BLOOD COUNT 6.3 K/mm3 (4.8-10.8)
[2021-03-06 13:25] LABS: ALBUMIN 3.6 g/dL (3.4-4.8); POTASSIUM 4.9 mmol/L (3.5-5.1)
[2021-03-06 13:27] LABS: CALCIUM 9.3 mg/dL (8.3-10.5)
[2021-03-06 13:30] LABS: TOTAL BILIRUBIN 0.5 mg/dL (0.2-1.2)
[2021-03-06 14:35] LABS: HYPOCHROMIA 1+; LYMPHOCYTE 14 % (20-51); MONOCYTE 8 % (3-10); NEUTROPHILS 77 % (42-75)
== END ==
LOC: EDSTATUS 08:11 → LAB 12:53
PROVIDERS: Internal Medicine
DX: C90.00 Multiple myeloma not having achieved remission (principal)

== ENCOUNTER → 2021-03-20 | Outpatient (CLI) | payer MEDICARE ==
[2021-03-20 23:45] LABS: IGM,SERUM 27 mg/dL (22-240); IMMUNOGLOBULIN A 178 mg/dL (101-645); IMMUNOGLOBULIN G 988 mg/dL (540-1822)
[2021-03-24 09:01] LABS: KAPPA LAMBDA RATIO 1.52 ratio (())
== END ==
LOC: LAB 16:13
PROVIDERS: Internal Medicine
DX: C90.00 Multiple myeloma not having achieved remission (principal); E85.81 Light chain (AL) amyloidosis

== ENCOUNTER → 2021-04-03 | Outpatient (CLI) | payer MEDICARE ==
[2021-04-03 11:44] LABS: BASO # 0.02 K/mm3 (0.02-0.10); EOS % 2.6 % (0.0-4.0); HEMATOCRIT 37.8 % (42.0-52.0); HEMOGLOBIN 11.5 g/dL (13.5-18.0); LYMPH# 1.09 K/mm3 (1.50-4.00); MEAN CELL VOLUME 108 fl (78-100); MEAN CORPUSCULAR HEMOGLOBIN 33 pg (27-31); MEAN CORPUSCULAR HGB CONC 30 g/dL (33-37); MONO # 0.71 K/mm3 (0.20-0.80); NEU # 5.53 K/mm3 (1.40-6.50); PLATELET COUNT 104 K/mm3 (130-400); RED BLOOD COUNT 3.49 M/mm3 (4.20-5.60); RED CELL DISTRIBUTION WIDTH 13.8 % (11.5-14.5); WHITE BLOOD COUNT 7.6 K/mm3 (4.8-10.8)
[2021-04-03 22:31] LABS: IGM,SERUM 35 mg/dL (22-240); IMMUNOGLOBULIN A 198 mg/dL (101-645); IMMUNOGLOBULIN G 1063 mg/dL (540-1822)
[2021-04-04 08:14] LABS: KAPPA LAMBDA RATIO 1.63 ratio (())
[2021-04-07 22:30] LABS: A/G RATIO (PEP) 0.96 (())
== END ==
LOC: LAB 11:08
PROVIDERS: Internal Medicine
DX: C90.00 Multiple myeloma not having achieved remission (principal)

== ENCOUNTER → 2021-04-23 | Outpatient (CLI) | payer MEDICARE ==
[2021-04-23 11:45] LABS: BASO # 0.02 K/mm3 (0.02-0.10); EOS # 0.14 K/mm3 (0.04-0.40); EOS % 2.1 % (0.0-4.0); HEMATOCRIT 35.5 % (42.0-52.0); MEAN CELL VOLUME 107 fl (78-100); MEAN CORPUSCULAR HEMOGLOBIN 33 pg (27-31); MEAN CORPUSCULAR HGB CONC 31 g/dL (33-37); MEAN PLATELET VOLUME 10.9 fl (7.4-10.4); MONO # 0.54 K/mm3 (0.20-0.80); NEU # 5.06 K/mm3 (1.40-6.50); PLATELET COUNT 101 K/mm3 (130-400); RED BLOOD COUNT 3.31 M/mm3 (4.20-5.60); RED CELL DISTRIBUTION WIDTH 14.2 % (11.5-14.5); WHITE BLOOD COUNT 6.6 K/mm3 (4.8-10.8)
[2021-04-23 11:48] LABS: ALBUMIN 3.8 g/dL (3.4-4.8); POTASSIUM 4.9 mmol/L (3.5-5.1)
[2021-04-23 11:50] LABS: CALCIUM 9.3 mg/dL (8.3-10.5)
[2021-04-23 11:51] LABS: TOTAL PROTEIN 6.9 g/dL (6.2-8.1)
[2021-04-23 11:53] LABS: TOTAL BILIRUBIN 0.5 mg/dL (0.2-1.2)
[2021-04-23 23:18] LABS: IGM,SERUM 29 mg/dL (22-240); IMMUNOGLOBULIN A 167 mg/dL (101-645); IMMUNOGLOBULIN G 1022 mg/dL (540-1822)
[2021-04-25 09:07] LABS: KAPPA LAMBDA RATIO 1.37 ratio (())
[2021-04-25 23:10] LABS: BETA GLOBULINS (PEP) 0.9 g/dL (0.7-1.2)
== END ==
LOC: LAB 11:27
PROVIDERS: Internal Medicine
DX: C90.00 Multiple myeloma not having achieved remission (principal)

== ENCOUNTER 2021-05-06 12:16 | Emergency (ER) | payer MEDICARE ==
[~2021-05-06] VITALS: Ht 172.7 cm; Wt 68.2 kg
[~2021-05-06 12:16] MED LIST changes: -NOVAPLUS DE200 MG/ML IM; -ONDANSETRON ODT8 MG PO; -PHARMASSURE ZIN50 MG PO; -QUETIAPINE FUMA25 M3 PO; -[UNRECOGNIZED DRUG - CODE] IV; -[UNRECOGNIZED DRUG - OTHER] IV
[2021-05-06 13:01] LABS: BASO # 0.01 K/mm3 (0.02-0.10); EOS # 0.09 K/mm3 (0.04-0.40); HEMATOCRIT 32.6 % (42.0-52.0); HEMOGLOBIN 10.1 g/dL (13.5-18.0); LYMPH# 0.64 K/mm3 (1.50-4.00); MEAN CELL VOLUME 107 fl (78-100); MEAN CORPUSCULAR HEMOGLOBIN 33 pg (27-31); MEAN CORPUSCULAR HGB CONC 31 g/dL (33-37); MEAN PLATELET VOLUME 11.2 fl (7.4-10.4); MONO # 0.49 K/mm3 (0.20-0.80); NEU # 3.23 K/mm3 (1.40-6.50); PLATELET COUNT 97 K/mm3 (130-400); RED BLOOD COUNT 3.06 M/mm3 (4.20-5.60); RED CELL DISTRIBUTION WIDTH 14.3 % (11.5-14.5); WHITE BLOOD COUNT 4.5 K/mm3 (4.8-10.8)
[2021-05-06 13:08] LABS: ALBUMIN 3.5 g/dL (3.4-4.8)
[2021-05-06 13:10] LABS: CALCIUM 9.2 mg/dL (8.3-10.5)
[2021-05-06 13:13] LABS: TOTAL BILIRUBIN 0.5 mg/dL (0.2-1.2)
[2021-05-06 13:24] LABS: TROPONIN-I 0.09 ng/mL (<0.030)
[2021-05-06] MEDS ORDERED: FOLIC ACID1 MG PO (14:37)
[2021-05-06] MEDS ORDERED: ONDANSETRON ODT8 MG PO (14:38)
[2021-05-06] MEDS ORDERED: QUETIAPINE FUMA25 M3 PO (14:38)
[2021-05-06] MEDS ORDERED: NOVAPLUS DE200 MG/ML IM (14:40)
[2021-05-06] MEDS ORDERED: TORSEMIDE20 M1 PO (14:40)
[2021-05-06] MEDS ORDERED: PHARMASSURE ZIN50 MG PO (14:42)
[2021-05-06] MEDS ORDERED: [UNRECOGNIZED DRUG - CODE] IV (15:10)
[2021-05-06] MEDS ORDERED: [UNRECOGNIZED DRUG - OTHER] IV (15:10)
[2021-05-06 16:49] VITALS: BP 141/68
== END 2021-05-06 16:50 | disposition home or self-care (01) ==
LOC: ED 12:16
PROVIDERS: Nurse Practitioner
DX: R07.89 Other chest pain (principal); I10 Essential (primary) hypertension; K21.9 Gastro-esophageal reflux disease without esophagitis; E78.2 Mixed hyperlipidemia; M10.9 Gout, unspecified; Z20.822 Contact with and (suspected) exposure to COVID-19; Z79.899 Other long term (current) drug therapy

== ENCOUNTER → 2021-05-20 | Outpatient (CLI) | payer MEDICARE ==
[~2021-05-20] MED LIST changes: +NOVAPLUS DE200 MG/ML IM; +ONDANSETRON ODT8 MG PO; +PHARMASSURE ZIN50 MG PO; +QUETIAPINE FUMA25 M3 PO; +[UNRECOGNIZED DRUG - CODE] IV; +[UNRECOGNIZED DRUG - OTHER] IV
[2021-05-20 17:24] LABS: ALBUMIN 3.5 g/dL (3.4-4.8)
[2021-05-20 17:25] LABS: POTASSIUM 4.4 mmol/L (3.5-5.1)
[2021-05-20 17:26] LABS: CALCIUM 8.9 mg/dL (8.3-10.5)
[2021-05-20 17:27] LABS: TOTAL PROTEIN 6.1 g/dL (6.2-8.1)
[2021-05-20 17:29] LABS: TOTAL BILIRUBIN 0.6 mg/dL (0.2-1.2)
[2021-05-20 17:36] LABS: HEMATOCRIT 32.5 % (42.0-52.0); HEMOGLOBIN 10.1 g/dL (13.5-18.0); MEAN CELL VOLUME 107 fl (78-100); MEAN CORPUSCULAR HEMOGLOBIN 33 pg (27-31); MEAN CORPUSCULAR HGB CONC 31 g/dL (33-37); MEAN PLATELET VOLUME 10.5 fl (7.4-10.4); PLATELET COUNT 81 K/mm3 (130-400); RED BLOOD COUNT 3.05 M/mm3 (4.20-5.60); RED CELL DISTRIBUTION WIDTH 14.6 % (11.5-14.5); WHITE BLOOD COUNT 5.6 K/mm3 (4.8-10.8)
[2021-05-20 19:04] LABS: NEUTROPHILS 82 % (42-75)
[2021-05-20 19:05] LABS: LYMPHOCYTE 7 % (20-51); MONOCYTE 10 % (3-10)
== END ==
LOC: LAB 16:55
PROVIDERS: Internal Medicine
DX: C90.00 Multiple myeloma not having achieved remission (principal)

== ENCOUNTER → 2021-05-23 | Outpatient (CLI) | payer MEDICARE ==
[2021-05-23 10:26] LABS: HEMATOCRIT 33.5 % (42.0-52.0); HEMOGLOBIN 10.3 g/dL (13.5-18.0); MEAN CELL VOLUME 108 fl (78-100); MEAN CORPUSCULAR HEMOGLOBIN 33 pg (27-31); MEAN CORPUSCULAR HGB CONC 31 g/dL (33-37); MEAN PLATELET VOLUME 10.2 fl (7.4-10.4); PLATELET COUNT 73 K/mm3 (130-400); RED CELL DISTRIBUTION WIDTH 15.3 % (11.5-14.5)
[2021-05-23 10:32] LABS: ALBUMIN 3.7 g/dL (3.4-4.8); POTASSIUM 4.4 mmol/L (3.5-5.1)
[2021-05-23 10:34] LABS: CALCIUM 8.7 mg/dL (8.3-10.5)
[2021-05-23 10:35] LABS: TOTAL PROTEIN 6.5 g/dL (6.2-8.1)
[2021-05-23 10:37] LABS: TOTAL BILIRUBIN 0.5 mg/dL (0.2-1.2)
[2021-05-23 11:14] LABS: NEUTROPHILS 96 % (42-75)
[2021-05-23 11:15] LABS: HYPOCHROMIA 2+; LYMPHOCYTE 4 % (20-51); MICROCYTOSIS 1+; OVALOCYTES 1+
[2021-05-27 08:12] LABS: KAPPA LAMBDA RATIO 1.39 ratio (())
[2021-05-27 22:09] LABS: A/G RATIO (PEP) 1.11 (()); BETA GLOBULINS (PEP) 0.8 g/dL (0.7-1.2)
== END ==
LOC: LAB 10:10
PROVIDERS: Internal Medicine
DX: C90.00 Multiple myeloma not having achieved remission (principal)

== ENCOUNTER → 2021-05-29 | Outpatient (CLI) | payer MEDICARE ==
[2021-05-29 10:00] LABS: HEMATOCRIT 32.4 % (42.0-52.0); HEMOGLOBIN 10.1 g/dL (13.5-18.0); MEAN CELL VOLUME 107 fl (78-100); MEAN CORPUSCULAR HEMOGLOBIN 33 pg (27-31); MEAN CORPUSCULAR HGB CONC 31 g/dL (33-37); MEAN PLATELET VOLUME 10.7 fl (7.4-10.4); PLATELET COUNT 75 K/mm3 (130-400); RED BLOOD COUNT 3.03 M/mm3 (4.20-5.60); RED CELL DISTRIBUTION WIDTH 15.7 % (11.5-14.5); WHITE BLOOD COUNT 8.1 K/mm3 (4.8-10.8)
[2021-05-29 10:09] LABS: ALBUMIN 3.6 g/dL (3.4-4.8); POTASSIUM 3.8 mmol/L (3.5-5.1)
[2021-05-29 10:10] LABS: CALCIUM 8.7 mg/dL (8.3-10.5)
[2021-05-29 10:11] LABS: TOTAL PROTEIN 6.2 g/dL (6.2-8.1)
[2021-05-29 10:13] LABS: TOTAL BILIRUBIN 0.4 mg/dL (0.2-1.2)
[2021-05-29 10:49] LABS: LYMPHOCYTE 8 % (20-51); MONOCYTE 6 % (3-10); NEUTROPHILS 83 % (42-75); NUCLEATED RED BLOOD CELL 2 (0-6)
[2021-05-29 10:50] LABS: HYPOCHROMIA 1+; OVALOCYTES 1+
[2021-06-02 07:59] LABS: KAPPA LAMBDA RATIO 1.61 ratio (())
[2021-06-04 10:23] LABS: A/G RATIO (PEP) 1.07 (()); BETA GLOBULINS (PEP) 0.8 g/dL (0.7-1.2)
== END ==
LOC: LAB 09:37
PROVIDERS: Internal Medicine
DX: C90.00 Multiple myeloma not having achieved remission (principal)

== ENCOUNTER → 2021-06-05 | Outpatient (CLI) | payer MEDICARE ==
[2021-06-05 11:19] LABS: HEMATOCRIT 32.5 % (42.0-52.0); HEMOGLOBIN 10.1 g/dL (13.5-18.0); MEAN CELL VOLUME 108 fl (78-100); MEAN CORPUSCULAR HEMOGLOBIN 34 pg (27-31); MEAN CORPUSCULAR HGB CONC 31 g/dL (33-37); MEAN PLATELET VOLUME 11.1 fl (7.4-10.4); PLATELET COUNT 68 K/mm3 (130-400); RED CELL DISTRIBUTION WIDTH 15.9 % (11.5-14.5); WHITE BLOOD COUNT 6.1 K/mm3 (4.8-10.8)
[2021-06-05 11:28] LABS: ALBUMIN 3.6 g/dL (3.4-4.8)
[2021-06-05 11:29] LABS: CALCIUM 9.1 mg/dL (8.3-10.5)
[2021-06-05 11:30] LABS: TOTAL PROTEIN 6.4 g/dL (6.2-8.1)
[2021-06-05 11:32] LABS: TOTAL BILIRUBIN 0.7 mg/dL (0.2-1.2)
[2021-06-05 11:37] LABS: HYPOCHROMIA 1+; LYMPHOCYTE 8 % (20-51); MONOCYTE 4 % (3-10); NEUTROPHILS 85 % (42-75); OVALOCYTES 1+
== END ==
LOC: LAB 11:05
PROVIDERS: Internal Medicine
DX: C90.00 Multiple myeloma not having achieved remission (principal)

== ENCOUNTER → 2021-06-14 | Outpatient (CLI) | payer MEDICARE ==
[~2021-06-14] MED LIST changes: +KEPPRA 500MG500 MG PO; +REVLIMID5 M1 PO
[2021-06-14 10:48] LABS: HEMATOCRIT 30.4 % (42.0-52.0); HEMOGLOBIN 9.7 g/dL (13.5-18.0); MEAN CELL VOLUME 106 fl (78-100); MEAN CORPUSCULAR HEMOGLOBIN 34 pg (27-31); MEAN CORPUSCULAR HGB CONC 32 g/dL (33-37); MEAN PLATELET VOLUME 11.3 fl (7.4-10.4); RED BLOOD COUNT 2.86 M/mm3 (4.20-5.60); RED CELL DISTRIBUTION WIDTH 15.7 % (11.5-14.5); WHITE BLOOD COUNT 4.5 K/mm3 (4.8-10.8)
[2021-06-14 10:57] LABS: ALBUMIN 3.4 g/dL (3.4-4.8); POTASSIUM 4.1 mmol/L (3.5-5.1)
[2021-06-14 10:59] LABS: CALCIUM 8.9 mg/dL (8.3-10.5)
[2021-06-14 11:01] LABS: PLATELET COUNT 48 K/mm3 (130-400)
[2021-06-14 11:02] LABS: TOTAL BILIRUBIN 0.7 mg/dL (0.2-1.2)
[2021-06-14 11:03] LABS: BAND 2 % (0-10); NEUTROPHILS 73 % (42-75)
[2021-06-14 11:04] LABS: LYMPHOCYTE 9 % (20-51); MONOCYTE 14 % (3-10); OVALOCYTES 1+
== END ==
LOC: LAB 10:34
PROVIDERS: Internal Medicine
DX: C90.00 Multiple myeloma not having achieved remission (principal)

== ENCOUNTER → 2021-06-19 | Outpatient (CLI) | payer MEDICARE ==
[2021-06-19 14:52] LABS: BASO # 0.01 K/mm3 (0.02-0.10); EOS # 0.04 K/mm3 (0.04-0.40); EOS % 2.7 % (0.0-4.0); HEMATOCRIT 31.2 % (42.0-52.0); HEMOGLOBIN 9.9 g/dL (13.5-18.0); LYMPH# 0.28 K/mm3 (1.50-4.00); MEAN CELL VOLUME 105 fl (78-100); MEAN CORPUSCULAR HEMOGLOBIN 33 pg (27-31); MEAN CORPUSCULAR HGB CONC 32 g/dL (33-37); MEAN PLATELET VOLUME 10.4 fl (7.4-10.4); MONO # 0.41 K/mm3 (0.20-0.80); NEU # 0.72 K/mm3 (1.40-6.50); PLATELET COUNT 57 K/mm3 (130-400); RED BLOOD COUNT 2.97 M/mm3 (4.20-5.60); RED CELL DISTRIBUTION WIDTH 15.7 % (11.5-14.5)
[2021-06-19 15:53] LABS: WHITE BLOOD COUNT 1.5 K/mm3 (4.8-10.8)
[2021-06-19 15:55] LABS: ALBUMIN 3.2 g/dL (3.4-4.8); POTASSIUM 4.1 mmol/L (3.5-5.1)
[2021-06-19 15:56] LABS: CALCIUM 8.5 mg/dL (8.3-10.5)
[2021-06-19 15:57] LABS: TOTAL PROTEIN 5.8 g/dL (6.2-8.1)
[2021-06-19 15:59] LABS: TOTAL BILIRUBIN 0.7 mg/dL (0.2-1.2)
[2021-06-19 18:17] LABS: NEUTROPHILS 47 % (42-75)
[2021-06-19 18:18] LABS: HYPOCHROMIA 1+; LYMPHOCYTE 23 % (20-51); MONOCYTE 25 % (3-10)
== END ==
LOC: LAB 14:39
PROVIDERS: Internal Medicine
DX: C90.00 Multiple myeloma not having achieved remission (principal)

== ENCOUNTER 2021-06-23 12:02 | Emergency (ER) | payer MEDICARE ==
[~2021-06-23] VITALS: Wt 71.1 kg
[~2021-06-23 12:02] MED LIST changes: -KEPPRA 500MG500 MG PO; -REVLIMID5 M1 PO
[2021-06-23] MEDS ORDERED: REVLIMID5 M1 PO (12:23)
[2021-06-23 12:53] LABS: HEMATOCRIT 24.3 % (42.0-52.0); HEMOGLOBIN 7.9 g/dL (13.5-18.0); MEAN CELL VOLUME 104 fl (78-100); MEAN CORPUSCULAR HEMOGLOBIN 34 pg (27-31); MEAN CORPUSCULAR HGB CONC 33 g/dL (33-37); MEAN PLATELET VOLUME 9.9 fl (7.4-10.4); PLATELET COUNT 65 K/mm3 (130-400); RED BLOOD COUNT 2.33 M/mm3 (4.20-5.60); RED CELL DISTRIBUTION WIDTH 15.6 % (11.5-14.5); WHITE BLOOD COUNT 2.1 K/mm3 (4.8-10.8)
[2021-06-23 13:05] LABS: ALBUMIN 2.8 g/dL (3.4-4.8); POTASSIUM 4.5 mmol/L (3.5-5.1)
[2021-06-23 13:07] LABS: CALCIUM 8.3 mg/dL (8.3-10.5)
[2021-06-23 13:10] LABS: TOTAL BILIRUBIN 0.7 mg/dL (0.2-1.2)
[2021-06-23 13:15] LABS: HYPOCHROMIA 1+; LYMPHOCYTE 14 % (20-51); MONOCYTE 24 % (3-10); NEUTROPHILS 57 % (42-75)
[2021-06-23] MEDS ORDERED: CEPHALEXIN500 M1 PO (15:05)
[2021-06-23] MEDS ORDERED: KEPPRA 500MG500 MG PO (15:06)
[2021-06-23 15:26] VITALS: BP 142/74
== END 2021-06-23 15:20 | disposition home or self-care (01) ==
LOC: ED 12:02
PROVIDERS: Nurse Practitioner
DX: R56.9 Unspecified convulsions (principal); I12.9 Hypertensive chronic kidney disease with stage 1 through stage 4 chronic kidney disease, or unspecified chronic kidney disease; N18.9 Chronic kidney disease, unspecified; R22.1 Localized swelling, mass and lump, neck; K21.9 Gastro-esophageal reflux disease without esophagitis; M10.9 Gout, unspecified; Z99.2 Dependence on renal dialysis; Z79.899 Other long term (current) drug therapy

== ENCOUNTER → 2021-06-26 | Outpatient (CLI) | payer MEDICARE ==
[~2021-06-26] MED LIST changes: +KEPPRA 500MG500 MG PO; +REVLIMID5 M1 PO
== END ==
LOC: RAD 15:55
DX: G31.9 Degenerative disease of nervous system, unspecified (principal); I87.9 Disorder of vein, unspecified; Z85.79 Personal history of other malignant neoplasms of lymphoid, hematopoietic and related tissues

== ENCOUNTER → 2021-06-27 | Outpatient (CLI) | payer MEDICARE ==
[2021-06-27 16:13] LABS: HEMATOCRIT 29.6 % (42.0-52.0); HEMOGLOBIN 9.3 g/dL (13.5-18.0); MEAN CELL VOLUME 107 fl (78-100); MEAN CORPUSCULAR HEMOGLOBIN 34 pg (27-31); MEAN CORPUSCULAR HGB CONC 31 g/dL (33-37); MEAN PLATELET VOLUME 9.5 fl (7.4-10.4); PLATELET COUNT 95 K/mm3 (130-400); RED BLOOD COUNT 2.76 M/mm3 (4.20-5.60); RED CELL DISTRIBUTION WIDTH 15.4 % (11.5-14.5); WHITE BLOOD COUNT 2.4 K/mm3 (4.8-10.8)
[2021-06-27 16:15] LABS: POTASSIUM 4.7 mmol/L (3.5-5.1)
[2021-06-27 16:16] LABS: CALCIUM 8.9 mg/dL (8.3-10.5)
[2021-06-27 16:17] LABS: TOTAL PROTEIN 5.2 g/dL (6.2-8.1)
[2021-06-27 16:19] LABS: TOTAL BILIRUBIN 0.6 mg/dL (0.2-1.2)
[2021-06-27 17:02] LABS: LYMPHOCYTE 24 % (20-51); MONOCYTE 18 % (3-10); NEUTROPHILS 57 % (42-75)
== END ==
LOC: LAB 15:57
PROVIDERS: Internal Medicine
DX: C90.00 Multiple myeloma not having achieved remission (principal)

== ENCOUNTER → 2021-07-04 | Outpatient (CLI) | payer MEDICARE ==
[2021-07-04 11:20] LABS: BASO # 0.01 K/mm3 (0.02-0.10); EOS % 2.1 % (0.0-4.0); HEMATOCRIT 29.8 % (42.0-52.0); HEMOGLOBIN 9.3 g/dL (13.5-18.0); LYMPH# 0.75 K/mm3 (1.50-4.00); MEAN CELL VOLUME 107 fl (78-100); MEAN CORPUSCULAR HEMOGLOBIN 33 pg (27-31); MEAN CORPUSCULAR HGB CONC 31 g/dL (33-37); MEAN PLATELET VOLUME 10.5 fl (7.4-10.4); MONO # 0.35 K/mm3 (0.20-0.80); NEU # 3.54 K/mm3 (1.40-6.50); PLATELET COUNT 107 K/mm3 (130-400); RED BLOOD COUNT 2.79 M/mm3 (4.20-5.60); RED CELL DISTRIBUTION WIDTH 15.6 % (11.5-14.5); WHITE BLOOD COUNT 4.8 K/mm3 (4.8-10.8)
[2021-07-04 11:25] LABS: ALBUMIN 3.2 g/dL (3.4-4.8)
[2021-07-04 11:26] LABS: POTASSIUM 4.3 mmol/L (3.5-5.1)
[2021-07-04 11:27] LABS: CALCIUM 8.4 mg/dL (8.3-10.5)
[2021-07-04 11:28] LABS: TOTAL PROTEIN 5.7 g/dL (6.2-8.1)
[2021-07-04 11:30] LABS: TOTAL BILIRUBIN 0.6 mg/dL (0.2-1.2)
== END ==
LOC: LAB 10:44
PROVIDERS: Internal Medicine
DX: C90.02 Multiple myeloma in relapse (principal); M25.512 Pain in left shoulder

== ENCOUNTER → 2021-07-07 | Outpatient (CLI) | payer MEDICARE ==
[2021-07-11 13:36] LABS: A/G RATIO (PEP) 1.01 (()); BETA GLOBULINS (PEP) 0.6 g/dL (0.7-1.2)
== END ==
LOC: LAB 11:51
PROVIDERS: Internal Medicine
DX: C90.00 Multiple myeloma not having achieved remission (principal)

== ENCOUNTER → 2021-07-10 | Outpatient (CLI) | payer MEDICARE | LOC: RAD 15:07 | DX: M75.102 Unspecified rotator cuff tear or rupture of left shoulder, not specified as traumatic (principal) ==

== ENCOUNTER → 2021-07-17 | Outpatient (CLI) | payer MEDICARE ==
[2021-07-17 10:21] LABS: HEMOGLOBIN 8.6 g/dL (13.5-18.0); MEAN CELL VOLUME 109 fl (78-100); MEAN CORPUSCULAR HEMOGLOBIN 34 pg (27-31); MEAN CORPUSCULAR HGB CONC 31 g/dL (33-37); MEAN PLATELET VOLUME 9.8 fl (7.4-10.4); PLATELET COUNT 68 K/mm3 (130-400); RED BLOOD COUNT 2.56 M/mm3 (4.20-5.60); RED CELL DISTRIBUTION WIDTH 15.7 % (11.5-14.5); WHITE BLOOD COUNT 6.5 K/mm3 (4.8-10.8)
[2021-07-17 10:31] LABS: ALBUMIN 3.3 g/dL (3.4-4.8); POTASSIUM 4.3 mmol/L (3.5-5.1)
[2021-07-17 10:32] LABS: CALCIUM 8.7 mg/dL (8.3-10.5)
[2021-07-17 10:34] LABS: TOTAL PROTEIN 5.7 g/dL (6.2-8.1)
[2021-07-17 10:35] LABS: TOTAL BILIRUBIN 0.5 mg/dL (0.2-1.2)
[2021-07-17 11:58] LABS: LYMPHOCYTE 6 % (20-51); MONOCYTE 8 % (3-10); NEUTROPHILS 86 % (42-75)
== END ==
LOC: LAB 10:07
PROVIDERS: Internal Medicine
DX: C90.02 Multiple myeloma in relapse (principal)

== ENCOUNTER → 2021-07-28 | Outpatient (CLI) | payer MEDICARE ==
[2021-07-28 12:51] LABS: HEMATOCRIT 32.4 % (42.0-52.0); HEMOGLOBIN 10.2 g/dL (13.5-18.0); MEAN CELL VOLUME 108 fl (78-100); MEAN CORPUSCULAR HEMOGLOBIN 34 pg (27-31); MEAN CORPUSCULAR HGB CONC 32 g/dL (33-37); MEAN PLATELET VOLUME 9.9 fl (7.4-10.4); PLATELET COUNT 71 K/mm3 (130-400); RED BLOOD COUNT 2.99 M/mm3 (4.20-5.60); RED CELL DISTRIBUTION WIDTH 16.7 % (11.5-14.5)
[2021-07-28 13:13] LABS: ALBUMIN 3.4 g/dL (3.4-4.8); POTASSIUM 4.5 mmol/L (3.5-5.1)
[2021-07-28 13:14] LABS: CALCIUM 8.8 mg/dL (8.3-10.5)
[2021-07-28 13:16] LABS: TOTAL PROTEIN 5.8 g/dL (6.2-8.1)
[2021-07-28 13:17] LABS: TOTAL BILIRUBIN 0.7 mg/dL (0.2-1.2)
[2021-07-28 16:41] LABS: LYMPHOCYTE 12 % (20-51); MONOCYTE 7 % (3-10); NEUTROPHILS 79 % (42-75)
== END ==
LOC: LAB 12:28
PROVIDERS: Internal Medicine
DX: C90.02 Multiple myeloma in relapse (principal)

== ENCOUNTER → 2021-08-04 | Outpatient (CLI) | payer MEDICARE ==
[2021-08-04 13:59] LABS: HEMATOCRIT 32.3 % (42.0-52.0); MEAN CELL VOLUME 111 fl (78-100); MEAN CORPUSCULAR HEMOGLOBIN 34 pg (27-31); MEAN CORPUSCULAR HGB CONC 31 g/dL (33-37); MEAN PLATELET VOLUME 9.9 fl (7.4-10.4); PLATELET COUNT 67 K/mm3 (130-400); RED BLOOD COUNT 2.92 M/mm3 (4.20-5.60); RED CELL DISTRIBUTION WIDTH 16.6 % (11.5-14.5); WHITE BLOOD COUNT 3.7 K/mm3 (4.8-10.8)
[2021-08-04 14:20] LABS: ALBUMIN 3.3 g/dL (3.4-4.8)
[2021-08-04 14:21] LABS: POTASSIUM 4.6 mmol/L (3.5-5.1)
[2021-08-04 14:22] LABS: CALCIUM 8.6 mg/dL (8.3-10.5)
[2021-08-04 14:23] LABS: TOTAL PROTEIN 5.5 g/dL (6.2-8.1)
[2021-08-04 14:25] LABS: TOTAL BILIRUBIN 0.6 mg/dL (0.2-1.2)
[2021-08-04 15:33] LABS: LYMPHOCYTE 12 % (20-51); MONOCYTE 6 % (3-10); NEUTROPHILS 82 % (42-75)
== END ==
LOC: LAB 13:38
PROVIDERS: Internal Medicine
DX: C90.02 Multiple myeloma in relapse (principal)

== ENCOUNTER → 2021-08-18 | Outpatient (CLI) | payer MEDICARE | LOC: RAD 12:28 | DX: M16.12 Unilateral primary osteoarthritis, left hip (principal); W19.XXXA Unspecified fall, initial encounter ==

== ENCOUNTER → 2021-09-12 | Outpatient (CLI) | payer MEDICARE ==
[~2021-09-12] MED LIST changes: +XANAX0.5 M1 PO
[2021-09-12 10:47] LABS: BASO # 0.01 K/mm3 (0.02-0.10); EOS # 0.04 K/mm3 (0.04-0.40); EOS % 0.9 % (0.0-4.0); HEMATOCRIT 33.4 % (42.0-52.0); HEMOGLOBIN 10.2 g/dL (13.5-18.0); MEAN CELL VOLUME 108 fl (78-100); MEAN CORPUSCULAR HEMOGLOBIN 33 pg (27-31); MEAN CORPUSCULAR HGB CONC 31 g/dL (33-37); MEAN PLATELET VOLUME 10.1 fl (7.4-10.4); MONO # 0.33 K/mm3 (0.20-0.80); NEU # 3.26 K/mm3 (1.40-6.50); PLATELET COUNT 80 K/mm3 (130-400); RED BLOOD COUNT 3.09 M/mm3 (4.20-5.60); RED CELL DISTRIBUTION WIDTH 15.4 % (11.5-14.5); WHITE BLOOD COUNT 4.2 K/mm3 (4.8-10.8)
[2021-09-12 11:14] LABS: ALBUMIN 3.3 g/dL (3.4-4.8)
[2021-09-12 11:15] LABS: CALCIUM 8.7 mg/dL (8.3-10.5)
[2021-09-12 11:16] LABS: TOTAL PROTEIN 5.6 g/dL (6.2-8.1)
[2021-09-12 11:18] LABS: TOTAL BILIRUBIN 0.5 mg/dL (0.2-1.2)
[2021-09-13 00:49] LABS: TESTOSTERONE 615 ng/dL (221-716)
== END ==
LOC: RAD 10:28
PROVIDERS: Internal Medicine
DX: J91.0 Malignant pleural effusion (principal)

== ENCOUNTER → 2021-10-14 | Outpatient (CLI) | payer MEDICARE | LOC: LAB 10:53 | DX: U07.1 COVID-19 (principal) ==

== ENCOUNTER → 2021-10-14 | Outpatient (CLI) | payer MEDICARE ==
[~2021-10-14] VITALS: Ht 165.1 cm; Wt 71.1 kg
[2021-10-14 12:33] VITALS: BP 115/60
[2021-10-14 12:45] VITALS: BP 118/59
[2021-10-14 13:00] VITALS: BP 117/59
[2021-10-14 13:15] VITALS: BP 122/69
[2021-10-14 13:30] VITALS: BP 119/59
== END ==
LOC: AMSURD 11:49
DX: U07.1 COVID-19 (principal); N18.9 Chronic kidney disease, unspecified
CPT/HCPCS: M0222; Q0222

== ENCOUNTER → 2021-10-28 | Outpatient (CLI) | payer MEDICARE | LOC: RAD 10:58 | DX: C90.00 Multiple myeloma not having achieved remission (principal); M16.0 Bilateral primary osteoarthritis of hip ==

== ENCOUNTER 2022-01-08 06:48 | Emergency (ER) | payer MEDICARE ==
[2022-01-08 07:23] LABS: HEMATOCRIT 34.8 % (42.0-52.0); MEAN CELL VOLUME 110 fl (78-100); MEAN CORPUSCULAR HEMOGLOBIN 35 pg (27-31); MEAN CORPUSCULAR HGB CONC 32 g/dL (33-37); MEAN PLATELET VOLUME 9.9 fl (7.4-10.4); PLATELET COUNT 100 K/mm3 (130-400); RED BLOOD COUNT 3.16 M/mm3 (4.20-5.60); RED CELL DISTRIBUTION WIDTH 15.5 % (11.5-14.5); WHITE BLOOD COUNT 6.8 K/mm3 (4.8-10.8)
[2022-01-08 07:31] LABS: ALBUMIN 3.2 g/dL (3.4-4.8); POTASSIUM 4.7 mmol/L (3.5-5.1); SODIUM 141 mmol/L (136-145)
[2022-01-08 07:32] LABS: CALCIUM 8.7 mg/dL (8.3-10.5)
[2022-01-08 07:33] LABS: GLUCOSE 77 mg/dL (75-110); TOTAL PROTEIN 5.3 g/dL (6.2-8.1)
[2022-01-08 07:34] LABS: CARBON DIOXIDE 27 mmol/L (23-31)
[2022-01-08 07:35] LABS: TOTAL BILIRUBIN 0.8 mg/dL (0.2-1.2)
[2022-01-08 07:39] LABS: AST-SGOT 10 U/L (5-34)
[2022-01-08 07:40] LABS: ALT/SGPT 7 U/L (0-55)
[2022-01-08 07:46] LABS: PARTIAL THROMBOPLASTIN TIME 33.8 SECONDS (21.0-32.0); PROTHROMBIN TIME 10.8 SECONDS (9.0-12.0)
[2022-01-08 07:49] LABS: TROPONIN-I < 0.030 ng/mL (<0.030)
[2022-01-08 08:01] LABS: LYMPHOCYTE 6 % (20-51); MONOCYTE 8 % (3-10); NEUTROPHILS 86 % (42-75)
[2022-01-08 13:23] VITALS: BP 115/77
== END 2022-01-08 13:15 | disposition short-term general hospital (02) ==
LOC: ED 06:48
PROVIDERS: Family Medicine
DX: R41.82 Altered mental status, unspecified (principal); Z20.822 Contact with and (suspected) exposure to COVID-19
CPT/HCPCS: J0696